=== PATIENT | female | born 1955 | race Hispanic/Latino ===

== ENCOUNTER → 2017-06-11 | Day surgery (SDC) | payer OTHER ==
[~2017-06-11] MED LIST: ALBUTEROL SULF8.5 GM NEB; AZITHROMYCIN250 MG; BALANCED SALT SOLN (OPTH) 15 ML BTL IO ONE; CEFUROXIME500 MG PO; FENTANYL CITRATE/PF 100MCG/2 ML INJ ONE; FLONASE16 GM NS; GELATIN SPONGE 12-7MM ONE; LIDOCAINE 2% /EPINEPHRINE 20 ML SDV INJ ONE; METFORMIN HCL500 MG PO; MIDAZOLAM HCL 2 MG/2 ML VIAL ONE; MUCINEX FAST-M177 ML PO; NEOMYCIN/POLYMYXIN/DEX (OPTH) 3.5 GM TUBE ONE; NEXIUM PO; NEXIUM40 MG PO; OMEPRAZOLE40 MG PO; PAROXETINE HCL10 MG PO; PAXIL40 MG PO; PROMETHAZINE-D118 ML; Z.0.LIPITOR40 MG PO; Z.0.OMEPRAZOLE40 MG PO
== END | disposition home or self-care (01) ==
LOC: OR 14:02
PROVIDERS: ATTEND Ophthalmology
DX: H02.834 Dermatochalasis of left upper eyelid (principal); H02.831 Dermatochalasis of right upper eyelid; E11.9 Type 2 diabetes mellitus without complications; L63.9 Alopecia areata, unspecified; F41.9 Anxiety disorder, unspecified
CPT/HCPCS: 15823; 36415; 82948; J2001; J2250

== ENCOUNTER 2017-09-01 10:20 | Emergency (ER) | payer OTHER ==
[~2017-09-01] VITALS: Ht 157.5 cm; Wt 68.9 kg
[~2017-09-01 10:20] MED LIST changes: -BALANCED SALT SOLN (OPTH) 15 ML BTL IO ONE; -FENTANYL CITRATE/PF 100MCG/2 ML INJ ONE; -GELATIN SPONGE 12-7MM ONE; -LIDOCAINE 2% /EPINEPHRINE 20 ML SDV INJ ONE; -MIDAZOLAM HCL 2 MG/2 ML VIAL ONE; -NEOMYCIN/POLYMYXIN/DEX (OPTH) 3.5 GM TUBE ONE
--- OUTSIDE RECORDS SUMMARY | 2017-09-01 10:23 | XMS REPORT ---
Author Author [facility] Address Unknown Phone Unavailable Care Team Providers Care Health Informatics Specialist Name Role Phone BUD YEPEZ Unavailable Unavailable SONIYA HEREDIA Unavailable Unavailable Problems This patient has no known problems. Allergies, Adverse Reactions, Alerts This patient has no known allergies or adverse reactions. Medications This patient has no known medications. Results Test Description Test Time Test Comments Text Results Atomic Results Result Comments HEPTOBILIARY W PHARM [place] [address] Patient Name: HANNY FITZPATRICK MR #: [id number] : 1955 Age/Sex: 61/F Req #: [id number] [facility] Physician: Ordered by: BUD YEPEZ MD Report #: [id number] Location: [place] Room/Bed: Procedure: [id number] NM/HEPTOBILIARY W PHARM Exam Date: 06/10/17 Exam Time: 929 REPORT STATUS: Signed Hepatobiliary Scan with Gallbladder Ejection Fraction Clinical information: 61 F with abdominal pain x3 weeks. Report: Following intravenous administration of 6.6 millicuries of Tc-99m mebrofenin, dynamic images of the abdomen in the anterior projection were obtained through 30 minutes. Sincalide (CCK analog) 1.5 micrograms was administered intravenously over 30 minutes with additional imaging for determination of gallbladder ejection fraction. Perfusion to the liver is normal. Extraction of tracer from the blood pool by the liver parenchyma is normal. Tracer is seen promptly within the biliary tract. The gallbladder begins to fill by 10 minutes post-injection of tracer and fills adequately. Tracer is seen in the small bowel by 20 minutes. The gallbladder ejection fraction with administration of sincalide is 82% (normal greater than 40%). Impression: 1. Filling of the gallbladder excludes the diagnosis of acute cystic duct obstruction/acute cholecystitis. 2. Normal gallbladder ejection fraction of 82% does not support the clinical diagnosis of chronic cholecystitis/gallbladder dyskinesia. Signed by: Dr. Elgin Forrest M.D. on 06/10/2017 1:05 PM Dictated By: ELGIN FORREST MD 1305 Transcribed By: MARLEN on 06/10/17 1305 COPY TO: BUD YEPEZ MD CT ABDOMEN/PELVIS W [place] [address] Patient Name: HANNY FITZPATRCIK MR #: [id number] : 1955 Age/Sex: 61/F Req #: [id number] Adm Physician: Ordered by: SONIYA HEREDIA MD Report #: [id number] Location: ER Room/Bed: Procedure: [id number] CT/CT ABDOMEN/PELVIS W Exam Date: 05/11/17 Exam Time: 2029 REPORT STATUS: Signed EXAM: CT Abdomen and Pelvis WITH contrast INDICATION: S EPIGASTRIC AND FLORIDALMA-UMBILICAL PAIN S [id number] S 2029 TECHNIQUE: Abdomen and pelvis were scanned utilizing a multidetector helical scanner from the lung base to the pubic symphysis after administration of IV contrast. Coronal and sagittal reformations were obtained. Routine protocol was performed. Scan was performed when during portal venous phase. IV CONTRAST: 100 mL of Isovue-370 ORAL CONTRAST: Gastrografin RADIATION DOSE: Total DLP: 358 mGy *cm Estimated effective dose: (DLP x 0.015 x size factor) mSv COMPLICATIONS: None FINDINGS: LINES and TUBES: None. LOWER THORAX: Mild bibasilar atelectasis. HEPATOBILIARY: Hepatic steatosis. No focal hepatic lesions. No biliary ductal dilation. GALLBLADDER: No radio-opaque stones or sludge. No wall thickening. SPLEEN : No splenomegaly. PANCREAS: No focal masses or ductal dilatation. ADRENALS: No adrenal nodules KIDNEYS/URETERS: Kidneys enhance symmetrically. No hydronephrosis. No cystic or solid mass lesions. No stones. GI TRACT: No abnormal distention, wall thickening, or evidence of bowel obstruction. Scattered diverticula. Appendix is normal. PELVIC ORGANS/BLADDER: Unremarkable. LYMPH NODES: No lymphadenopathy. VESSELS : Unremarkable. PERITONEUM / RETROPERITONEUM: No free air or fluid. BONES: Unremarkable. SOFT TISSUES: Bilateral high gluteal calcifications compatible with prior injection granulomas. IMPRESSION: No acute abnormality in the abdomen or pelvis. Signed by: Dr Ben Mendez MD on 05/11/2017 9:12 PM Dictated By: BEN MENDEZ MD 11 Transcribed By: MARLEN on 05/11/172111 COPY TO: SONIYA HEREDIA MD CT ABDOMEN/PELVIS [place] [address] Patient Name: HANNY FITZPATRICK MR #: [id number] : 1955 Age/Sex: 61/F Req #: [id number] Adm Physician: Ordered by: SONIYA HEREDIA MD Report #: [id number] Location: Room/Bed: Procedure: [id number] CT/CT ABDOMEN/PELVIS W Exam Date: 02/25/17 Exam Time: 1800 REPORT STATUS: Signed EXAM: CT Abdomen and Pelvis WITH contrast INDICATION: Left lower quadrant pain, diverticulitis. COMPARISON : 08/09/2014 TECHNIQUE: Abdomen and pelvis were scanned utilizing a multidetector helical scanner from the lung base to the pubic symphysis after administration of IV contrast. Coronal and sagittal reformations were obtained. Routine protocol was performed. Scan was performed when during portal venous phase. IV CONTRAST: 100 mL of Isovue-370 ORAL CONTRAST: Gastrografin RADIATION DOSE: Total DLP: 434.67 mGy*cm Estimated effective dose: (DLP x 0.015 x size factor) mSv COMPLICATIONS: None FINDINGS: LINES and TUBES: None. LOWER THORAX: Unremarkable HEPATOBILIARY: The liver is diffuse hypodense compared to the spleen, consistent with diffuse hepatic diffuse hepatic steatosis. No focal hepatic lesions. No biliary ductal dilation. GALLBLADDER: No radio-opaque stones or sludge. No wall thickening. SPLEEN: No splenomegaly. PANCREAS: No focal masses or ductal dilatation. ADRENALS: No adrenal nodules KIDNEYS/URETERS: Kidneys enhance symmetrically. No hydronephrosis. No cystic or solid mass lesions. No stones. GI TRACT: No abnormal distention, wall thickening, or evidence of bowel obstruction. There are diverticula within the colon without evidence of diverticulitis. Appendix is normal. PELVIC ORGANS/BLADDER: Unremarkable. LYMPH NODES: No lymphadenopathy. VESSELS: Unremarkable. PERITONEUM / RETROPERITONEUM: No free air or fluid. BONES: Unremarkable. SOFT TISSUES: Bilateral high gluteal calcifications compatible with prior injection granulomas. IMPRESSION: 1. No evidence of acute intra-abdominal or pelvic abnormality, specifically no evidence of diverticulitis. Signed by: Dr. Teto Glaser M.D. on 2016 8:15 PM Dictated By: TETO PETE MD 14 Transcribed By: MARLEN on 2014 COPY TO: SONIYA HEREDIA MD
[2017-09-01 11:16] LABS: BASOPHILS # (AUTO) 0.1 (0.0-0.1); BASOPHILS % 0.6 % (0.0-1.0); EOSINOPHILS % 0.2 % (0.0-6.0); HEMATOCRIT 39.4 % (34.2-44.1); LYMPHOCYTES # (AUTO) 3.7 (1.0-3.2); LYMPHOCYTES % 43.3 % (18.0-39.1); MEAN CORPUSCULAR HEMOGLOBIN 31.2 pg (28-32); MEAN CORPUSCULAR VOLUME 94.5 fL (81-99); MONOCYTES # (AUTO) 0.7 (0.2-0.8); MONOCYTES % 8.4 % (4.4-11.3); NEUTROPHILS % 47.4 % (38.7-80.0); PLATELET COUNT 396 x10e3/uL (140-360); RED BLOOD COUNT 4.17 x10e6/uL (3.6-5.1); RED CELL DISTRIBUTION WIDTH 13.3 % (11.7-14.4)
[2017-09-01 11:17] LABS: BILIRUBIN,URINE NEGATIVE (NEGATIVE); CLARITY,URINE CLEAR (CLEAR); COLOR,URINE YELLOW (YELLOW); KETONES,URINE NEGATIVE (NEGATIVE); LEUKOCYTE ESTERASE ,URINE NEGATIVE (NEGATIVE); NITRITE,URINE NEGATIVE (NEGATIVE); PROTEIN,URINE DIPSTICK NEGATIVE (NEGATIVE); URINE UROBILINOGEN 0.2 mg/dL (0.2 - 1)
[2017-09-01 11:31] LABS: EPITHELIAL CELLS,URINE FEW /LPF
[2017-09-01 11:38] LABS: ALANINE AMINOTRANSFERASE 26 IU/L (0-55); ALBUMIN 4.1 g/dL (3.5-5.0); ALBUMIN/GLOBULIN RATIO 1.2 (0.8-2.0); ALKALINE PHOSPHATASE 92 IU/L (40-150); ANION GAP 13.5 mmol/L (8-16); BLOOD UREA NITROGEN 11 mg/dL (7-26); BUN/CREATININE RATIO 17 (6-25); CALCIUM 9.1 mg/dL (8.4-10.2); CARBON DIOXIDE 26 mmol/L (22-29); CHLORIDE 106 mmol/L (98-107); CREATININE, SERUM 0.66 mg/dL (0.57-1.11); EST GLOMERULAR FILTRATION RATE > 60 ML/MIN (60-); GLUCOSE 79 mg/dL (74-118); MAGNESIUM 2.2 MG/DL (1.3-2.1); POTASSIUM 3.5 mmol/L (3.5-5.1); SODIUM 142 mmol/L (136-145)
--- NOTE | 2017-09-01 11:45 | Diagnostic Imaging Report ---
Exam: Head CT without contrast History: Left side body paresthesia. Comparison studies: None Technique: Axial images were obtained from the skull base to the vertex. Coronal and sagittal images reconstructed from the axial data. Intravenous contrast: None Findings: Scalp: No abnormalities. Bones: No fractures, blastic or lytic lesions. Brain sulci: Appropriate for age. Ventricles: Normal in size and configuration. No hydrocephalus. Extra-axial spaces: No masses, no fluid collection. Parenchyma: Subtle hypodensities in the bilateral periventricular white matter and posterior limb of the internal capsules are likely small vessel ischemic changes. No mass, hemorrhage, acute or chronic large vascular territorial infarct. Sellar/suprasellar region: No abnormalities. Craniocervical junction: Patent foramen magnum. No Chiari one malformation. Incidental findings: None. IMPRESSION: 1. No acute intracranial abnormality demonstrated. 2. Mild chronic small vessel ischemic changes. Signed by: DR Kobe Daniels M.D. on 09/01/2017 2:32 PM
== END 2017-09-01 12:18 | disposition home or self-care (01) ==
LOC: ER 10:20
DX: R20.2 Paresthesia of skin (principal); E11.9 Type 2 diabetes mellitus without complications; K21.9 Gastro-esophageal reflux disease without esophagitis
CPT/HCPCS: 36415; 70450; 80053; 81001; 83735; 85025; 93005; 99284

== ENCOUNTER 2017-10-21 10:41 | Emergency (ER) | payer BC, OTHER ==
[~2017-10-21] VITALS: Ht 157.5 cm; Wt 68.9 kg
--- OUTSIDE RECORDS SUMMARY | 2017-10-21 10:44 | XMS REPORT | Continuity of Care Document ---
Author Author [facility] Organization [facility] Address [address] [place] [address] Phone Unavailable Care Team Providers Care Co Director Name Role Phone RONALDO CARTAGENA MD PCP Insurance Providers Guarantor Hanny Fitzpatrick Address [address] [place] [address] Email [email or web address] [email or web address] [facility] Policy Number [id number] Subscriber's Name FitzpatrickAdria Relationship 01 Group Number [id number] Group Name [id number] Effective Date 16 Advance Directives Directive Response Recorded Date/Time Does the patient have an advance directive? No 05/11/13 5:16pm If yes, is advance directive on file with [facility]? No 05/11/13 5:16pm If not on file with [facility] will patient provide a copy? Yes 06/06/17 8:26am Do you have a Directive to Physician? No 09/01/17 12:15pm Do you have a Medical Power of Military Logistics Specialist? No 09/01/17 12:15pm Do you have an out of hospital Do Not Resuscitate Order? No 09/01/17 12:15pm Do you have any special needs we should be aware of? No 09/01/17 12:15pm Do you have a support person here with you today? Yes 09/01/17 12:15pm Did patient receive Notice of Privacy Practices? Yes 09/01/17 12:15pm Did patient receive patient rights and responsibilities? Yes 09/01/17 12:15pm Problems Medical Problem Onset Date Status Bronchitis Unknown Acute Medications Current Home Medications Medication Dose Units Route Directions Days Qty Instructions Start Date Metformin Hcl 500 Mg Tablet 500 Mg Oral Twice A Day 60 Tab Omeprazole 40 Mg Capsule.dr 40 Mg Oral Daily Past Home Medications Medication Directions Ordered Status Albuterol Sulfate (Albuterol Sulfate Hfa) 8.5 Gm Hfa.aer.ad, 2 Inh Nebullizer Every 6 Hours as needed Discontinued Atorvastatin Calcium (Lipitor) 40 Mg Tablet, 40 Mg Oral Daily Discontinued Azithromycin (Z-Leland) 250 Mg Tablet, Discontinued Cefuroxime Axetil (Cefuroxime) 500 Mg Tablet, 500 Mg Oral Twice A Day Discontinued D-Methorphan Hb/Prometh Hcl (Promethazine-Dm Syrup) 118 Ml Syrup, Discontinued Esomeprazole Magnesium (Nexium) 40 Mg Capsule.dr, 40 Mg Oral Daily Discontinued Fluticasone Propionate (Flonase) 16 Gm [place].susp, 2 Sprays Nasal Twice A Day Discontinued Guaifenesin/Dextromethorphan (Mucinex Fast-Max Dm Max Liquid) 177 Ml Liquid, 1 Tab Oral Twice A Day Discontinued Nexium , Oral Daily Discontinued Omeprazole 40 Mg Capsule.dr, 40 Mg Oral Daily Discontinued Paroxetine Hcl (Paxil) 40 Mg Tablet, 40 Mg Oral Daily Discontinued Paroxetine Hcl 10 Mg Tablet, 10 Mg Oral Daily Discontinued Social History Social History Problem Response Recorded Date/Time Onset Date Status Hx Psychiatric Problems No 05/11/2013 5:16pm Not Applicable Not Applicable Smoking Status Start Date Stop Date Never Smoker Hospital Discharge Instructions No hospital discharge instruction information available. Plan of Care Discharge Date 09/01/17 12:18pm Disposition HOME, SELF-CARE Condition at Discharge Stable Instructions/Education Provided Numbness and Tingling Forms Provided Work/School Excuse Prescriptions See Medication Section Referrals RONALDO CARTAGENA MD Address: [address] [place] [phone] SATURDAYMANJU MD Order Date: Call for an appointment Address: [address] [place] [address] Additional Instructions/Education DC Instructions: Follow up with the your PCP or referral physician listed, call next business day to schedule your follow-up appointment. Return to the ER for any shortness of breath, chest pain, abdominal pain,increased pain to injured extremity or any new concerns. Functional Status No functional status information available. Allergies, Adverse Reactions, Alerts Allergen Type Severity Reaction Status Last Updated Aspirin Allergy Unknown Swelling. itching Active 02/25/17 Immunizations No immunization information available. Vital Signs Acute Vital Signs Vital Response Date/Time Blood Pressure 151/91 mm Hg 05/11/2017 9:42pm Height 5 ft 2 in 09/01/2017 10:33am Weight 152 lb 09/01/2017 10:33am Body Mass Index 27.8 kg/m^2 09/01/2017 10:33am Results Laboratory Results Test Name Result Units Flags Reference Collection Date/Time Result Date/ Time Comments Urine Transitional Epithelial Cells FEW H NONE 02/25/2017 3:08pm 02/25 3:51pm Creatine Kinase 59 IU/L 29-168 05/11/2017 5:55pm 05/11/2017 6:39pm Creatine Kinase MB 1.20 ng/mL 0.00-5.00 05/11/2017 5:55pm 05/11/2017 6: 46pm Troponin I 0.012 ng/mL 0-0.300 05/11/2017 5:55pm 05/11/2017 6:46pm Lipase 23 U/L 8-78 05/11/2017 5:55pm 05/11/2017 6:39pm Bedside Glucose 88 mg/dL 70-120 06/11/2017 4:48pm 06/11/2017 5:09pm Meter ID: [id number] White Blood Count 8.54 x10e3/uL 4.8-10.8 09/01/2017 10:55am 09/01/2017 11:16am Red Blood Count 4.17 x10e6/uL 3.6-5.1 09/01/2017 10:55am 09/01/2017 11: 16am Hemoglobin 13.0 g/dL 12.0-16.0 09/01/2017 10:55am 09/01/2017 11:16am Hematocrit 39.4 % 34.2-44.1 09/01/2017 10:55am 09/01/2017 11:16am Mean Corpuscular Volume 94.5 fL 81-99 09/01/2017 10:55am 09/01/2017 11: 16am Mean Corpuscular Hemoglobin 31.2 pg 28-32 09/01/2017 10:55am 2017 11:16am Mean Corpuscular Hemoglobin Concent 33.0 g/dL 31-35 09/01/2017 10:55am 09/01/2017 11:16am Red Cell Distribution Width 13.3 % 11.7-14.4 09/01/2017 10:55am 2017 11:16am Platelet Count 396 x10e3/uL H 140-360 09/01/2017 10:55am 09/01/2017 11: 16am Neutrophils (%) (Auto) 47.4 % 38.7-80.0 09/01/2017 10:55am 09/01/2017 11:16am Lymphocytes (%) (Auto) 43.3 % H 18.0-39.1 09/01/2017 10:55am 09/01/2017 11:16am Monocytes (%) (Auto) 8.4 % 4.4-11.3 09/01/2017 10:55am 09/01/2017 11: 16am Eosinophils (%) (Auto) 0.2 % 0.0-6.0 09/01/2017 10:55am 09/01/2017 11: 16am Basophils (%) (Auto) 0.6 % 0.0-1.0 09/01/2017 10:55am 09/01/2017 11: 16am IM GRANULOCYTES % 0.1 % 0.0-1.0 09/01/2017 10:55am 09/01/2017 11:16am Neutrophils # (Auto) 4.0 2.1-6.9 09/01/2017 10:55am 09/01/2017 11: 16am Lymphocytes # (Auto) 3.7 H 1.0-3.2 09/01/2017 10:55am 09/01/2017 11: 16am Monocytes # (Auto) 0.7 0.2-0.8 09/01/2017 10:55am 09/01/2017 11:16am Eosinophils # (Auto) 0.0 0.0-0.4 09/01/2017 10:55am 09/01/2017 11: 16am Basophils # (Auto) 0.1 0.0-0.1 09/01/2017 10:55am 09/01/2017 11:16am Absolute Immature Granulocyte (auto 0.01 x10e3/uL 0-0.1 09/01/2017 10: 55am 09/01/2017 11:16am Urine Color YELLOW YELLOW 09/01/2017 10:55am 09/01/2017 11:17am Urine Clarity CLEAR CLEAR 09/01/2017 10:55am 09/01/2017 11:17am Urine Specific [place] 1.010 1.010-1.025 09/01/2017 10:55am 2017 11:17am Urine pH 8 H 5 - 7 09/01/2017 10:55am 09/01/2017 11:17am Urine Leukocyte Esterase NEGATIVE NEGATIVE 09/01/2017 10:55am 2017 11:17am Urine Nitrite NEGATIVE NEGATIVE 09/01/2017 10:55am 09/01/2017 11: 17am Urine Protein NEGATIVE NEGATIVE 09/01/2017 10:55am 09/01/2017 11: 17am Urine Glucose (UA) NEGATIVE NEGATIVE 09/01/2017 10:55am 09/01/2017 11 :17am Urine Ketones NEGATIVE NEGATIVE 09/01/2017 10:55am 09/01/2017 11: 17am Urine Urobilinogen 0.2 mg/dL 0.2 - 1 09/01/2017 10:55am 09/01/2017 11: 17am Urine Bilirubin NEGATIVE NEGATIVE 09/01/2017 10:55am 09/01/2017 11: 17am Urine Blood NEGATIVE NEGATIVE 09/01/2017 10:55am 09/01/2017 11:17am Urine WBC NONE /HPF 0-5 09/01/2017 10:55am 09/01/2017 11:31am Urine RBC NONE /HPF 0-5 09/01/2017 10:55am 09/01/2017 11:31am Urine Bacteria NONE /HPF NONE 09/01/2017 10:55am 09/01/2017 11:31am Urine Epithelial Cells FEW /LPF NONE 09/01/2017 10:55am 09/01/2017 11: 31am Sodium Level 142 mmol/L 136-145 09/01/2017 10:55am 09/01/2017 11:38am Potassium Level 3.5 mmol/L 3.5-5.1 09/01/2017 10:55am 09/01/2017 11: 38am Chloride Level 106 mmol/L 98-107 09/01/2017 10:55am 09/01/2017 11:38am Carbon Dioxide Level 26 mmol/L 22-29 09/01/2017 10:55am 09/01/2017 11: 38am Anion Gap 13.5 mmol/L 8-16 09/01/2017 10:55am 09/01/2017 11:38am Blood Urea Nitrogen 11 mg/dL 7-26 09/01/2017 10:55am 09/01/2017 11: 38am Creatinine 0.66 mg/dL 0.57-1.11 09/01/2017 10:55am 09/01/2017 11:38am BUN/Creatinine Ratio 17 6-25 09/01/2017 10:55am 09/01/2017 11:38am Estimat Glomerular Filtration Rate > 60 ML/MIN 60- 09/01/2017 10:55am 09/01/2017 11:38am Ranges were taken from the National Kidney Disease Education Program and the National Kidney Foundation literature. Reference ranges: 60 or greater: Normal 16-59 (for 3 consecutive months): Chronic kidney disease 15 or less: Kidney failure Glucose Level 79 mg/dL 74-118 09/01/2017 10:55am 09/01/2017 11:38am Calcium Level 9.1 mg/dL 8.4-10.2 09/01/2017 10:55am 09/01/2017 11:38am Magnesium Level 2.2 MG/DL H 1.3-2.1 09/01/2017 10:55am 09/01/2017 11: 38am Total Bilirubin < 0.3 mg/dL 0.2-1.2 09/01/2017 10:55am 09/01/2017 11: 38am Aspartate Amino Transf (AST/SGOT) 15 IU/L 5-34 09/01/2017 10:55am 09/01 11:38am Alanine Aminotransferase (ALT/SGPT) 26 IU/L 0-55 09/01/2017 10:55am 04/2018 11:38am Total Protein 7.6 g/dL 6.5-8.1 09/01/2017 10:55am 09/01/2017 11:38am Albumin 4.1 g/dL 3.5-5.0 09/01/2017 10:55am 09/01/2017 11:38am Globulin 3.5 g/dL 2.3-3.5 09/01/2017 10:55am 09/01/2017 11:38am Albumin/Globulin Ratio 1.2 0.8-2.0 09/01/2017 10:55am 09/01/2017 11: 38am Alkaline Phosphatase 92 IU/L 40-150 09/01/2017 10:55am 09/01/2017 11: 38am Procedures Procedure Status Date Provider(s) REVISION OF UPPER EYELID Completed 06/11/17 CHRIST ARELLANO MD Computed tomography of abdomen and pelvis with contrast Active 02/25/17 SONIYA HEREDIA MD Computed tomography of abdomen and pelvis with contrast Active 05/11/17 SONIYA HEREDIA MD Computed tomography of brain without radiopaque contrast Completed 09/01/17 YOLANDA RICE LANDSCAPE GARDENER Encounters Encounter Location Arrival/Admit Date Discharge/Depart Date Attending Provider Registered Emergency Room [facility] 09/01/17 10:20am SONIYA HEREDIA MD Registered Surgical Day Care [facility] 06/11/17 2:02pm CHRIST ARELLANO MD Registered Clinic [facility] 06/10/17 8:34am BUD YEPEZ MD Departed Emergency Room [facility] 05/11/17 4:53pm 9:49pm TY VILLASENOR MD Departed Emergency Room [facility] 02/25/17 2:40pm 7:47pm SONIYA HEREDIA MD
[2017-10-21 11:11] VITALS: BP 152/94
== END 2017-10-21 11:12 | disposition home or self-care (01) ==
LOC: ER 10:41
DX: H11.32 Conjunctival hemorrhage, left eye (principal)
CPT/HCPCS: 99283

== ENCOUNTER → 2018-07-18 | Day surgery (SDC) | payer BC ==
[~2018-07-18] MED LIST changes: +BYSTOLIC10 MG PO; +FENTANYL CITRATE/PF 100MCG/2 ML INJ ONE; +HYOSCYAMINE SULFATE 0.5 MG/ML INJ ONE; +LIDOCAINE HCL 2% LOCAL INJ 5 ML SDV VIAL INJ ONE; +MIDAZOLAM HCL 2 MG/2 ML VIAL ONE; +MONTELUKAST SOD10 MG PO; +PAROXETINE HCL20 MG PO; +PHENYLEPHRINE HCL 1% 10 MG/ML VIAL ONE; +PROPOFOL IV EMULSION 10 MG/ML 50 ML VIAL ONE; +TRULICITY SC
--- OUTSIDE RECORDS SUMMARY | 2018-07-18 09:22 | XMS REPORT | Summary of Care ---
Author Author Organization Address Unknown Phone Unavailable Encounter SEGUNDO Gamino(EUN) [id number] Date(s): 11/28/15 - 11/28/[address] [place] [address]- Discharge Disposition: Home Attending Physician: Sunita Hairston MD Vital Signs No data available for this section Problem List No data available for this section Allergies, Adverse Reactions, Alerts No data available for this section Medications No data available for this section Results ELECTROLYTES Most recent to 1 oldest [Reference Range]: Sodium Lvl [135-145 140 mEq/L mEq/L] (11/28/15 1:17 PM) Potassium Lvl 3.5 mEq/L [3.5-5.1 mEq/L] (11/28/15 1:17 PM) Chloride Lvl [95-109 106 mEq/L mEq/L] (11/28/15 1:17 PM) CO2 [24-32 mEq/L] 27 mEq/L (11/28/15 1:17 PM) AGAP [10.0-20.0 10.5 mEq/L mEq/L] (11/28/15 1:17 PM) CHEM PANEL Most recent to 1 oldest [Reference Range]: Creatinine Lvl 0.44 mg/dL [0.50-1.40 mg/dL] *LOW* (11/28/15 1:17 PM) eGFR 110 mL/min/1.73m2 1 *NA* (11/28/15 1:17 PM) BUN [7-22 mg/dL] 6 mg/dL *LOW* (11/28/15 1:17 PM) B/C Ratio [6-25] 14 (11/28/15 1:17 PM) Glucose Lvl [70-99 85 mg/dL mg/dL] (11/28/15 1:17 PM) Total Protein 7.1 g/dL [6.4-8.4 g/dL] (11/28/15 1:17 PM) Albumin Lvl [3.5-5.0 3.5 g/dL g/dL] (11/28/15 1:17 PM) Globulin [2.0-4.0 3.6 g/dL g/dL] (11/28/15 1:17 PM) A/G Ratio [0.7-1.6] 1.0 (11/28/15 1:17 PM) Calcium Lvl 8.3 mg/dL [8.5-10.5 mg/dL] *LOW* (11/28/15 1:17 PM) ALT [0-65 unit/L] 36 unit/L (11/28/15 1:17 PM) AST [0-37 unit/L] 16 unit/L (11/28/15 1:17 PM) Alk Phos [39-136 104 unit/L unit/L] (11/28/15:17 PM) Bili Total [0.2-1.3 0.1 mg/dL mg/dL] *LOW* (11/28/15 1:17 PM) Vitamin D, 25-OH, 37 ng/mL Total [30-100 ng/mL] (11/28/15 1:17 PM) 1Result Comment: The eGFR is calculated using the CKD-EPI formula. In most young, healthy individuals the eGFR will be >90 mL/min/1.73m2. The eGFR declines with age. An eGFR of 60-89 may be normal in some populations, particularly the elderly, for whom the CKD-EPI formula has not been extensively validated. Use of the eGFR is not recommended in the following populations: Individuals with unstable creatinine concentrations, including patients and those with serious co-morbid conditions. Patients with extremes in muscle mass or diet. The data above are obtained from the National Kidney Disease Education Program ( NKDEP) which additionally recommends that when the eGFR is used in patients with extremes of body mass index for purposes of drug dosing, the eGFR should be mul tiplied by the estimated BMI. SPECIAL CHEMISTRY Most recent to 1 oldest [Reference Range]: Hgb A1C [<=5.6 %] 6.5 % *HI* (11/28/15 1:17 PM) ENDOCRINOLOGY Most recent to 1 oldest [Reference Range]: Insulin Lvl 4.8 uIU/mL *NA* (11/28/15: PM) HEMATOLOGY Most recent to 1 oldest [Reference Range]: WBC [3.7-10.4 K/CMM] 6.7 K/CMM (11/28/15 1:17 PM) RBC [4.20-5.40 4.24 M/CMM M/CMM] (11/28/15 1:17 PM) Hgb [12.0-16.0 g/dL] 13.5 g/dL (11/28/15 1:17 PM) Hct [36.0-48.0 %] 41.2 % (11/28/15 1: PM) MCV [80.0-98.0 fL] 97.1 fL (11/28/15 1:17 PM) MCH [27.0-31.0 pg] 31.7 pg *HI* (11/28/15 1:17 PM) MCHC [32.0-36.0 32.7 g/dL g/dL] (11/28/15 1:17 PM) RDW [11.5-14.5 %] 13.1 % (11/28/15 1:17 PM) Platelet [133-450 258 K/CMM K/CMM] (11/28/15 1:17 PM) MPV [7.4-10.4 fL] 9.0 fL (11/28/15 1:17 PM) Segs [45.0-75.0 %] 43.3 % *LOW* (11/28/15 1:17 PM) Lymphocytes 47.1 % [20.0-40.0 %] *HI* (11/28/15 1:17 PM) Monocytes [2.0-12.0 6.9 % %] (11/28/15 1:17 PM) Eosinophils [0.0-4.0 2.1 % %] (11/28/15 1:17 PM) Basophils [0.0-1.0 0.6 % %] (11/28/15 1:17 PM) Segs-Bands # 2.9 K/CMM [1.5-8.1 K/CMM] (11/28/15 1:17 PM) Lymphocytes # 3.1 K/CMM [1.0-5.5 K/CMM] (11/28/15 1:17 PM) Monocytes # [0.0-0.8 0.5 K/CMM K/CMM] (11/28/15 1:17 PM) Eosinophils # 0.1 K/CMM [0.0-0.5 K/CMM] (11/28/15 1:17 PM) Immunizations No data available for this section Procedures No data available for this section Social History No data available for this section Assessment and Plan No data available for this section
--- OUTSIDE RECORDS SUMMARY | 2018-07-18 09:22 | XMS REPORT | Summary of Care ---
Author Author [facility] Organization [facility] Address Unknown Phone Unavailable Encounter SEGUNDO Gamino(EUN) [id number] Date(s): 07/16/16 - 07/16/16 [facility] [address] [place] [address]- [phone] Discharge Disposition: Home or Self Care Attending Physician: Teddy Barboza MD Referring Physician: Teddy Barboza MD Vital Signs No data available for this section Problem List No data available for this section Allergies, Adverse Reactions, Alerts No data available for this section Medications No data available for this section Results CHEM PANEL Most recent to 1 oldest [Reference Range]: eGFR 105 mL/min/1.73m2 1 *NA* (07/16/16 3:29 PM) POC Creatinine 0.5 mg/dL [0.5-1.4 mg/dL] (07/16/16 3:29 PM) 1Result Comment: The eGFR is calculated [...] be mul tiplied by the estimated BMI. Immunizations No data available for this section Procedures No data available for this section Social History No data available for this section Assessment and Plan No data available for this section
--- OUTSIDE RECORDS SUMMARY | 2018-07-18 09:22 | XMS REPORT | Summary of Care ---
Author Organization Unknown Address Unknown Phone Unavailable Encounter Dates Location Diagnoses Discharge Providers Disposition 09/23/2013 [facility] Outpatient Imaging - Home Mkcenzie Rodriguez 09/23/2013 [address] [place], [place] [id number] [place] [address] Reason for Visit V76.12 - SCREEN MAMMOGRA Problem List No data available for this section Allergies, Adverse Reactions, Alerts No data available for this section Medications No data available for this section Medications Administered During Your Visit No data available for this section Immunizations No data available for this section
--- OUTSIDE RECORDS SUMMARY | 2018-07-18 09:22 | XMS REPORT | Summary of Care ---
Author Author [facility] Organization [facility] Address Unknown Phone Unavailable Encounter SEGUNDO Gamino(EUN) [id number] Date(s): 05/06/15 - 05/06/15 [facility] [address] [place] [address]- [phone] Discharge Disposition: Home Attending Physician: Sunita Hairston MD Vital Signs No data available for this section Problem List No data available for this section Allergies, Adverse Reactions, Alerts No data available for this section Medications No data available for this section Results ELECTROLYTES Most recent to 1 oldest [Reference Range]: Sodium Lvl [135-145 137 mEq/L mEq/L] (05/06/15 9:21 AM) Potassium Lvl 3.9 mEq/L [3.5-5.1 mEq/L] (05/06/15 9:21 AM) Chloride Lvl [95-109 103 mEq/L mEq/L] (05/06/15 9:21 AM) CO2 [24-32 mEq/L] 30 mEq/L (05/06/15 9:21 AM) AGAP [10.0-20.0 7.9 mEq/L mEq/L] *LOW* (05/06/15 9:21 AM) CHEM PANEL Most recent to 1 oldest [Reference Range]: Creatinine Lvl 0.57 mg/dL [0.50-1.40 mg/dL] (05/06/15 9:21 AM) eGFR 102 mL/min/1.73m2 1 *NA* (05/06/15 9:21 AM) BUN [7-22 mg/dL] 11 mg/dL (05/06/15 9:21 AM) B/C Ratio [6-25] 19 (05/06/15 9:21 AM) Glucose Lvl [70-99 95 mg/dL mg/dL] (05/06/15 9:21 AM) Total Protein 7.3 g/dL [6.4-8.4 g/dL] (05/06/15 9:21 AM) Albumin Lvl [3.5-5.0 3.7 g/dL g/dL] (05/06/15 9:21 AM) Globulin [2.0-4.0 3.6 g/dL g/dL] (05/06/15 9:21 AM) A/G Ratio [0.7-1.6] 1.0 (05/06/15 9:21 AM) Calcium Lvl 8.8 mg/dL [8.5-10.5 mg/dL] (05/06/15 9:21 AM) ALT [0-65 unit/L] 26 unit/L (05/06/15 9:21 AM) AST [0-37 unit/L] 10 unit/L (05/06/15 9:21 AM) Alk Phos [39-136 93 unit/L unit/L] (05/06/15 9:21 AM) Bili Total [0.2-1.3 0.4 mg/dL mg/dL] (05/06/15 9:21 AM) 1Result Comment: The eGFR is calculated using [...] oldest [Reference Range]: Hgb A1C [<=5.6 %] 5.6 % (05/06/15 9:31 AM) Immunizations No data available for this section Procedures No data available for this section Social History No data available for this section Assessment and Plan No data available for this section
--- OUTSIDE RECORDS SUMMARY | 2018-07-18 09:22 | XMS REPORT | Continuity of Care Document ---
Author Author [facility] Interface Address Unknown Phone Unavailable Problems Problem Status Onset Date Classification Date Reported Comments Source DX: H92.02=OTALGIA, LEFT EAR/R07.0=PAIN Active 2016 [facility] E11.9 Active 11/28/2015 [facility] M06.00 Active 09/26/2015 [facility] Z12.31 - ENCNTR SCREEN MAMMOGRAM FOR MA Active 06/15/2015 [facility] [place] BLE DX:DVT Active 10/25/2014 [facility] V76.12 - SCREEN MAMMOGRA Active 07/31/2012 LORIEMeera Ferguson Final: Encounter for screening mammogram for malignant neoplasm of breast 11/28/2015 [facility] 466.0 Active [facility] J06 Active [facility] E11.9/K76.0 Active [facility] Medications Medication Details Route Status Patient Instructions Ordering Provider Order Date Source Allergies, Adverse Reactions, Alerts Substance Category Reaction Severity Reaction type Status Date Reported Comments Source Immunizations Immunization Date Given Site Status Last Updated Comments Source Results Order Name Results Value Reference Range Date Interpretation Comments Source CHEM PANEL eGFR 105 mL/min/1.73m2 07/16/2016 Result Comment: The eGFR is calculated using the [...] from the National Kidney Disease Education Program (NKDEP) which additionally recommends that when the eGFR is used in patients with extremes of body mass index for purposes of drug dosing, the eGFR should be multiplied by the estimated BMI. [facility] CHEM PANEL POC Creatinine 0.5 mg/dL 0.5 - 1.4 07/16/2016 [facility] Neck soft tissue w contrast CT Neck soft tissue w contrast CT Neck soft tissue w contrast CT CLINICAL INDICATION: Throat pain; otalgia of left ear; COMPARISON: None CT DLP: 232 mGy-cm TECHNIQUE: Contiguous transaxial images of the neck were performed following administration of IV contrast. Coronal and sagittal reformatted images were also performed. FINDINGS: SUPRAHYOID NECK: The oropharynx, parapharyngeal space, and retropharyngeal space are normal. The nasopharyngeal adenoids and tonsillar pillar regions demonstrate normal morphology. The external acoustic meatus is patent bilaterally. No fluid is noted in the middle ear on either side. Mastoid air cells are clear bilaterally. INFRAHYOID NECK: The epiglottis, valleculae and piriform sinuses are unremarkable in appearance. The larynx, and hypopharynx demonstrate normal morphology. THYROID AND SALIVARY GLANDS: The thyroid lobes are symmetric without focal lesions. The submandibular and parotid glands are unremarkable. LYMPH NODES: There are a few scattered subcentimeter lymph nodes noted along the deep cervical and posterior cervical chains bilaterally. VASCULAR STRUCTURES: The jugular veins and carotid vessels are unremarkable. LUNGS AND AIRWAY: The airway is patent throughout the neck. Visualized portion of the lung apices are clear. PARANASAL SINUSES: Mild mucosal thickening, base of left maxillary sinus. Visualized paranasal sinuses are otherwise clear. IMPRESSION: No significant abnormality is noted on the contrast CT of neck. SL: [id number] 07/16/2016 - - Read by: Jose Roberto Galaviz MD Dictated Date/time: 07/17/16 13:11 Electronically Signed by: Jose Roberto Galaviz MD 07/17/16 13:24 FINAL REPORT [facility] CHEM PANEL Vitamin D, 25-OH, Total 37 ng/mL 30 - 100 11/28/2015 [facility] ELECTROLYTES AGAP 10.5 meq/L 10.0 - 20.0 11/28/2015 [facility] ELECTROLYTES B/C Ratio 14 6 - 25 11/28/2015 [facility] ELECTROLYTES Globulin 3.6 g/dL 2.0 - 4.0 11/28/2015 [facility] ELECTROLYTES A/G Ratio 1.0 0.7 - 1.6 11/28/2015 [facility] ELECTROLYTES eGFR 110 mL/min/1.73m2 11/28/2015 Result Comment: The eGFR is calculated using the [...] from the National Kidney Disease Education Program (NKDEP) which additionally recommends that when the eGFR is used in patients with extremes of body mass index for purposes of drug dosing, the eGFR should be multiplied by the estimated BMI. [facility] ELECTROLYTES Bili Total 0.1 mg/dL 0.2 - 1.3 11/28/2015 [facility] ELECTROLYTES Alk Phos 104 unit/L 39 - 136 11/28/2015 [facility] ELECTROLYTES Sodium Lvl 140 meq/L 135 - 145 11/28/2015 [facility] ELECTROLYTES Creatinine Lvl 0.44 mg/dL 0.50 - 1.40 11/28/2015 [facility] ELECTROLYTES Glucose Lvl 85 mg/dL 70 - 99 11/28/2015 [facility] ELECTROLYTES BUN 6 mg/dL 7 - 22 11/28/2015 [facility] ELECTROLYTES CO2 27 meq/L 24 - 32 11/28/2015 [facility] ELECTROLYTES Chloride Lvl 106 meq/L 95 - 109 11/28/2015 [facility] ELECTROLYTES Total Protein 7.1 g/dL 6.4 - 8.4 11/28/2015 [facility] ELECTROLYTES Calcium Lvl 8.3 mg/dL 8.5 - 10.5 11/28/2015 [facility] ELECTROLYTES Potassium Lvl 3.5 meq/L 3.5 - 5.1 11/28/2015 [facility] ELECTROLYTES ALT 36 unit/L 0 - 65 11/28/2015 [facility] ELECTROLYTES Albumin Lvl 3.5 g/dL 3.5 - 5.0 11/28/2015 [facility] ELECTROLYTES AST 16 unit/L 0 - 37 11/28/2015 [facility] ENDOCRINOLOGY Insulin Lvl 4.8 uIU/mL 11/28/2015 [facility] HEMATOLOGY Lymphocytes # 3.1 K/CMM 1.0 - 5.5 11/28/2015 [facility] HEMATOLOGY Lymphocytes 47.1 % 20.0 - 40.0 11/28/2015 [facility] HEMATOLOGY Monocytes 6.9 % 2.0 - 12.0 11/28/2015 [facility] Eosinophils # 0.1 K/CMM 0.0 - 0.5 11/28/2015 [facility] Monocytes # 0.5 K/CMM 0.0 - 0.8 11/28/2015 [facility] Basophils 0.6 % 0.0 - 1.0 11/28/2015 [facility] Eosinophils 2.1 % 0.0 - 4.0 11/28/2015 [facility] Segs-Bands # 2.9 K/CMM 1.5 - 8.1 11/28/2015 [facility] Segs 43.3 % 45.0 - 75.0 11/28/2015 [facility] MPV 9.0 fL 7.4 - 10.4 11/28/2015 [facility] MCHC 32.7 g/dL 32.0 - 36.0 11/28/2015 [facility] Hct 41.2 % 36.0 - 48.0 11/28/2015 [facility] MCV 97.1 fL 80.0 - 98.0 11/28/2015 [facility] RDW 13.1 % 11.5 - 14.5 11/28/2015 [facility] Platelet 258 K/CMM 133 - 450 11/28/2015 [facility] MCH 31.7 pg 27.0 - 31.0 11/28/2015 [facility] RBC 4.24 M/CMM 4.20 - 5.40 11/28/2015 [facility] Hgb 13.5 g/dL 12.0 - 16.0 11/28/2015 [facility] WBC 6.7 K/CMM 3.7 - 10.4 11/28/2015 [facility] SPECIAL CHEMISTRY Hgb A1C 6.5 % <=5.6 % 11/28/2015 [facility] Digital Mammo Screening Carlos Manuel MA Digital Mammo Screening Carlos Manuel MA - DIGITAL MAMMO SCREENING CARLOS MANUEL MA BILATERAL DIGITAL SCREENING MAMMOGRAM WITH CAD: 11/25/2015 CLINICAL: Z12.31 Encounter For Screening Mammogram For Malignant Neoplasm Of Breast. Current study was evaluated with a Computer Aided Detection (CAD) system. Comparison is made to exams dated: 09/23/2013 mammogram, 09/18/2012 mammogram and 08/23/2011 mammogram - [facility]. The tissue of both breasts is almost entirely fat. No significant masses, calcifications, or other findings are seen in either breast. There has been no significant interval change. IMPRESSION: NEGATIVE There is no mammographic evidence of malignancy. A 1 year screening mammogram is recommended. Shanti Chowdary M.D. th/penrad:11/25/2015 10:46:56 Limnology Teacher: Jennifer ALVARADO)(Laura), [facility] This exam was dictated and interpreted by [id number] at [facility] Location. letter sent: Normal exam Mammogram BI-RADS: 1 Negative 11/25/2015 - - Read by: Shanti Chowdary MD Dictated Date/time: 11/25/15 10:46 Electronically Signed by: Shanti Chowdary MD 11/25/15 10:46 FINAL REPORT [facility] HEMATOLOGY Sed Rate 23 mm/h 0 - 20 09/26/2015 [facility] IMMUNOLOGY RF Qnt null 0 - 20 09/26/2015 [facility] IMMUNOLOGY P-ANCA Negative (09/26/15 3:31 PM) Negative 09/26/2015 [facility] IMMUNOLOGY C-ANCA Negative (09/26/15 3:31 PM) Negative 09/26/2015 [facility] IMMUNOLOGY SCL- 70 Ab null <=0.9 AI 09/26/2015 [facility] IMMUNOLOGY UGO Negative (09/26/15 3:31 PM) Negative 09/26/2015 [facility] SPECIAL CHEMISTRY Hgb A1C 5.6 % <=5.6 % 05/06/2015 [facility] CHEM PANEL Alk Phos 93 unit/L 39 - 136 05/06/2015 [facility] CHEM PANEL AST 10 unit/L 0 - 37 05/06/2015 [facility] CHEM PANEL A/G Ratio 1.0 0.7 - 1.6 05/06/2015 [facility] CHEM PANEL ALT 26 unit/L 0 - 65 05/06/2015 [facility] CHEM PANEL B/C Ratio 19 6 - 25 05/06/2015 [facility] CHEM PANEL Globulin 3.6 g/dL 2.0 - 4.0 05/06/2015 [facility] CHEM PANEL Total Protein 7.3 g/dL 6.4 - 8.4 05/06/2015 [facility] CHEM PANEL eGFR 102 mL/min/1.73m2 05/06/2015 Result Comment: The eGFR is calculated using the [...] from the National Kidney Disease Education Program (NKDEP) which additionally recommends that when the eGFR is used in patients with extremes of body mass index for purposes of drug dosing, the eGFR should be multiplied by the estimated BMI. [facility] CHEM PANEL Bili Total 0.4 mg/dL 0.2 - 1.3 05/06/2015 [facility] CHEM PANEL Creatinine Lvl 0.57 mg/dL 0.50 - 1.40 05/06/2015 [facility] CHEM PANEL BUN 11 mg/dL 7 - 22 05/06/2015 [facility] CHEM PANEL AGAP 7.9 meq/L 10.0 - 20.0 05/06/2015 [facility] CHEM PANEL Albumin Lvl 3.7 g/dL 3.5 - 5.0 05/06/2015 [facility] CHEM PANEL CO2 30 meq/L 24 - 32 05/06/2015 [facility] CHEM PANEL Calcium Lvl 8.8 mg/dL 8.5 - 10.5 05/06/2015 [facility] CHEM PANEL Sodium Lvl 137 meq/L 135 - 145 05/06/2015 [facility] CHEM PANEL Potassium Lvl 3.9 meq/L 3.5 - 5.1 05/06/2015 [facility] CHEM PANEL Chloride Lvl 103 meq/L 95 - 109 05/06/2015 [facility] CHEM PANEL Glucose Lvl 95 mg/dL 70 - 99 05/06/2015 [facility] Chest 2 views Chest 2 views Examination: Chest x-ray, 2 views History: 466.0 acute bronchitis Comparison: 03/18/2014 Findings: The lungs are clear and without focal consolidation. The cardiomediastinal silhouette is within normal limits. No pleural effusion or pneumothorax is seen. The osseous structures are without focal abnormality. IMPRESSION: No acute cardiopulmonary disease. SL: 16 07/19/2014 - - Read by: Lyndon Steele MD Dictated Date/time: 07/19/14 11:14 Electronically Signed by: Lyndon Steele MD 07/19/14 11:14 FINAL REPORT [facility] Spine cervical 2 or 3 view DX Spine cervical 2 or 3 view DX Exam: Cervical spine x-ray, 2 views Reason for Exam: Neck pain Comparison Exam: None Discussion: On lateral view, the cervical spine is seen from the C1 vertebral body level down through the C7/T1 junction. Vertebral body heights are maintained. No spondylolisthesis. No suspicious osteoblastic or osteolytic lesions. Prevertebral soft tissue is within normal limits. Lateral masses of C1 and dens of C2 appear intact. Please note that a cervical spine x-ray cannot rule out ligamentous injuries or spinal cord abnormalities. Visualized portions of the lung apices are unremarkable. Impression: 1. Unremarkable cervical spine x-ray 03/18/2014 - - Read by: Jaime Alarcon MD Dictated Date/time: 03/18/14 16:37 Electronically Signed by: Jaime Alarcon MD 03/18/14 16:38 FINAL REPORT [facility] Chest 2 views Chest 2 views Exam: Two-view chest x-ray Reason for Exam: Pain Comparison Exam: Chest x-ray 08/02/2011 Discussion: Cardiomediastinal silhouette is within normal limits. Both hemidiaphragms well visualized. No pulmonary edema or pleural effusions. No focal lung consolidations. Trachea is midline. No acute bony abnormalities. Impression: 1. No acute cardiopulmonary abnormalities. 03/18/2014 - - Read by: Jaime Alarcon MD Dictated Date/time: 03/18/14 16:35 Electronically Signed by: Jaime Alarcon MD 03/18/14 16:37 FINAL REPORT [facility] Digital Mammo Screening Carlos Manuel MA Digital Mammo Screening Carlos Manuel MA - DIGITAL MAMMO SCREENING CARLOS MANUEL MA BILATERAL DIGITAL SCREENING MAMMOGRAM WITH CAD: 09/23/2013 CLINICAL: Routine. Current study was evaluated with a Computer Aided Detection (CAD) system. Comparison is made to exams dated: 10/05/2008 mammogram - [place], 12/27/2009 mammogram, 08/23/2011 mammogram and 09/18/2012 mammogram - [facility]. There are scattered fibroglandular densities in both breasts. There are benign vascular calcifications in the right breast. No significant masses, calcifications, or other findings are seen in either breast. There has been no significant interval change. IMPRESSION: BENIGN There is no mammographic evidence of malignancy. A screening mammogram in one year is recommended. Perfecto Trujillo M.D. srp/penrad:09/23/2013 09:26:20 Limnology Teacher: Kailee CARTWRIGHT (R)(Laura), [facility] This exam was dictated and interpreted by [id number] for Larry Alarcon. letter sent: Normal exam Mammogram BI-RADS: 2 Benign 09/23/2013 - - Read by: Perfecto Trujillo Dictated Date/time: 09/23/13 09:26 Electronically Signed by: Perfecto Trujillo MD 09/23/13 09:26 FINAL REPORT [facility] Vital Signs Vital Sign Value Date Comments Source Encounters Location Location Details Encounter Type Encounter Number Reason For Visit Attending Provider ADM Date DC Date Status Source [facility] [id number] _MAPID:[id number] Mckenziesam Lewisu 09/23/2013 09/24/2013 CRISTO Lee [facility] [place] [facility] [id number] Phu Peraza 03/18/2014 03/19/2014 [facility] Outpatient [id number] Abel Vital 07/19/2014 07/20/2014 [facility] Outpatient [id number] Phu Peraza 10/27/2014 10/28/2014 [facility] Outpatient [id number] Sunita Vital 05/06/2015 05/07/2015 [facility] Outpatient [id number] Jama Luisel 09/26/2015 09/27/2015 [facility] [place] [facility] [id number] Matt Ellington 11/25/2015 11/26/2015 [facility] Outpatient [id number] Sunita Vital 11/28/2015 11/29/2015 [facility] Outpatient [id number] Teddy Barboza 07/16/2016 07/17/2016 [facility] Procedures Procedure Code Date Perfomer Comments Source
--- OUTSIDE RECORDS SUMMARY | 2018-07-18 09:22 | XMS REPORT | Summary of Care ---
Author Organization Unknown Address Unknown Phone Unavailable Encounter HQ Sumayar_luma([facility]) [id number] Date(s): 03/18/14 - 03/18/14 [facility] Outpatient Imaging - [address] [address]- [place] Discharge Disposition: Home Physician Attending: Phu Peraza MD Reason for Visit V70.0 - ROUTINE MEDICAL Problem List No data available for this section Allergies, Adverse Reactions, Alerts No data available for this section Medications No data available for this section Medications Administered During Your Visit No data available for this section Immunizations No data available for this section
--- OUTSIDE RECORDS SUMMARY | 2018-07-18 09:22 | XMS REPORT | Summary of Care ---
Author Organization Unknown Address Unknown Phone Unavailable Encounter HQ Encntr_luma([facility]) [id number] Date(s): 10/27/14 - 10/27/14 [facility] [address] [place] [address]- Discharge Disposition: Home Physician Attending: Phu Peraza MD Physician_Referring: Phu Peraza MD Vital Signs No data available for this section Problem List No data available for this section Allergies, Adverse Reactions, Alerts No data available for this section Medications No data available for this section Results No data available for this section Immunizations No data available for this section Procedures No data available for this section Social History No data available for this section Assessment and Plan No data available for this section
--- OUTSIDE RECORDS SUMMARY | 2018-07-18 09:22 | XMS REPORT | Summary of Care ---
Author Author [facility] Organization [facility] Address Unknown Phone Unavailable Encounter HQ Dangelontr_luma([facility]) [id number] Date(s): 09/26/15 - 09/26/15 [facility] [address] [place] [address]- Discharge Disposition: Home Attending Physician: Jama Yarbrough MD Vital Signs No data available for this section Problem List No data available for this section Allergies, Adverse Reactions, Alerts No data available for this section Medications No data available for this section Results IMMUNOLOGY Most recent to 1 oldest [Reference Range]: UGO [Negative] Negative (09/26/15 3:31 PM) RF Qnt [0-20 IU/mL] <10 IU/mL (09/26/15 3:31 PM) SCL- 70 Ab [<=0.9 <0.2 AI AI] (09/26/15 3:31 PM) C-ANCA [Negative] Negative (09/26/15 3:31 PM) P-ANCA [Negative] Negative (09/26/15 3:31 PM) HEMATOLOGY Most recent to 1 oldest [Reference Range]: Sed Rate [0-20 23 mm/hr mm/hr] *HI* (09/26/15 3:31 PM) Immunizations No data available for this section Procedures No data available for this section Social History No data available for this section Assessment and Plan No data available for this section
--- OUTSIDE RECORDS SUMMARY | 2018-07-18 09:22 | XMS REPORT | Summary of Care ---
Author Organization Unknown Address Unknown Phone Unavailable Encounter HQ Sumayar_luma([facility]) [id number] Date(s): 07/19/14 - 07/19/14 [facility] [address] [address] Discharge Disposition: Home Physician Attending: Abel Hairston MD Reason for Visit 466.0 Problem List No data available for this section Allergies, Adverse Reactions, Alerts No data available for this section Medications No data available for this section Medications Administered During Your Visit No data available for this section Immunizations No data available for this section
--- OUTSIDE RECORDS SUMMARY | 2018-07-18 09:22 | XMS REPORT | Summary of Care ---
Author Author [facility] Organization [facility] Address Unknown Phone Unavailable Encounter Encntr_alimary([facility]) [id number] Date(s): 11/25/15 - 11/25/15 [facility] [address] [address] [phone] Final: Encounter for screening mammogram for malignant neoplasm of breast Discharge Disposition: Home Attending Physician: Matt Ellington MD Vital Signs No data available for [...]
[2018-07-18 15:00] VITALS: BP 142/98
--- NOTE | 2018-07-18 15:29 | Operative Report ---
DATE OF PROCEDURE: July 18, 2018 REFERRING PHYSICIAN: Gm Love MD PROCEDURES PERFORMED 1. Esophagogastroduodenoscopy with biopsies and esophageal dilatation. 2. Colonoscopy with biopsies. INDICATIONS FOR EGD: History of heartburn and indigestion, dysphagia to solids. INDICATIONS FOR COLONOSCOPY: Surveillance colonoscopy. Personal history of colon polyps. MEDICATION: Patient was done under MAC. Please see anesthesiologist's note. PROCEDURE: With the patient in the left lateral decubitus position, the flexible fiberoptic Olympus gastroscope was introduced into the esophagus under direct visualization without any difficulty. There was some patchy erythema noted in the distal esophagus. A minute tongue of velvety red mucosa was noted to extend proximally from the GE junction. That was biopsied to rule out Stinson's. The scope was then advanced with ease into the stomach, traversing a moderate-size hiatal hernia. The mucosa overlying the antrum and the body revealed some patchy erythema and low-grade to moderate edema, and biopsies were obtained and sent to stain for H. pylori. Hyperplastic-appearing polyps were noted in the body of the stomach. Some were partially excised with the cold biopsy forceps. Pylorus appeared to be of normal contour and shape. It was intubated with ease, and the scope was advanced all the way to the 2nd portion of the duodenum. The scope was then withdrawn slowly. Mucosa overlying the proximal 2nd portion and the duodenal bulb appeared to be within normal limits. The scope was then withdrawn back into the stomach and retroflexed. The mucosa overlying the fundus appeared to be within normal limits. The previously described hiatal hernia was also noted in the retroflexed position. The scope was then straightened out. It was subsequently withdrawn. Patient tolerated the procedure well. IMPRESSION 1. Mild distal esophagitis. 2. Rule out Stinson's esophagus. 3. Esophagus dilated to size 52-Greenlandic Yu. 4. Moderate-size hiatal hernia. 5. Gastritis, biopsied. Biopsies sent to stain for H. pylori. 6. Gastric polyps, body, partially excised with cold biopsy forceps. PLAN: Follow up histology. Continue omeprazole 40 mg 1 p.o. a.c. b.i.d. The patient was then turned around. After adequate lubrication of the anal canal, a flexible fiberoptic Olympus colonoscope was inserted into the rectum with ease and advanced all the way to the cecum. The mucosa overlying the cecum appeared to be within normal limits. Some aphthous-like ulcerations were noted in the ascending colon, and biopsies were obtained. Also, a single diverticulum was noted in the ascending colon, and several aphthous-like ulcerations were noted in the ascending colon, and biopsies were obtained. Mucosa overlying the transverse, descending, sigmoid and rectum grossly appeared to be within normal limits. The scope was then retroflexed into the distal rectum, and moderate-size internal hemorrhoids were noted, none of which was actively bleeding. The scope was then straightened out. It was subsequently withdrawn. Patient tolerated the procedure well. IMPRESSION 1. Single diverticulum, proximal ascending colon. 2. Aphthous-like ulcers, ascending colon. Biopsies obtained. 3. Internal hemorrhoids, none actively bleeding. PLAN: Follow up histology. Initiate high-fiber, low-fat diet. Initiate high-fiber supplement. Patient might benefit from a followup colonoscopy in 5 years. Job#: [id number] cc:GM LOVE MD
== END | disposition home or self-care (01) ==
LOC: OR 09:19
PROVIDERS: ATTEND Internal Medicine Gastroenterology
DX: K20.9 Esophagitis, unspecified (principal); K31.7 Polyp of stomach and duodenum; K29.70 Gastritis, unspecified, without bleeding; K63.3 Ulcer of intestine; K21.9 Gastro-esophageal reflux disease without esophagitis; K22.8 Other specified diseases of esophagus; K44.9 Diaphragmatic hernia without obstruction or gangrene; K57.30 Diverticulosis of large intestine without perforation or abscess without bleeding; K64.8 Other hemorrhoids; I10 Essential (primary) hypertension; E11.9 Type 2 diabetes mellitus without complications; F41.9 Anxiety disorder, unspecified; Z88.6 Allergy status to analgesic agent; Z01.810 Encounter for preprocedural cardiovascular examination
CPT/HCPCS: 36415; 43239; 43450; 45380; 82948; 93005; J1980; J2001; J2250; J2370; 45378

== ENCOUNTER → 2019-08-07 | Outpatient (CLI) | payer BC ==
[~2019-08-07] MED LIST changes: +DICYCLOMINE HCL20 MG PO; -FENTANYL CITRATE/PF 100MCG/2 ML INJ ONE; -HYOSCYAMINE SULFATE 0.5 MG/ML INJ ONE; +IOPAMIDOL 370 MG/ML 200 ML INFUS..BTL INJ ONE; -LIDOCAINE HCL 2% LOCAL INJ 5 ML SDV VIAL INJ ONE; +LIPITOR20 MG PO; -MIDAZOLAM HCL 2 MG/2 ML VIAL ONE; +PANTOPRAZOLE SO40 MG PO; -PHENYLEPHRINE HCL 1% 10 MG/ML VIAL ONE; -PROPOFOL IV EMULSION 10 MG/ML 50 ML VIAL ONE; +SODIUM CHLORIDE 0.9% 50ML 50 ML ONE; +TOPIRAMATE100 MG PO
[2019-08-07 16:24] LABS: BLOOD UREA NITROGEN 13 mg/dL (7-26); BUN/CREATININE RATIO 18 (6-25); CREATININE, SERUM 0.74 mg/dL (0.57-1.11); EST GLOMERULAR FILTRATION RATE > 60 ML/MIN (60-)
--- NOTE | 2019-08-07 18:05 | Diagnostic Imaging Report ---
EXAM: CT Abdomen and Pelvis WITH contrast INDICATION: Pain. COMPARISON: 05/11/2017. TECHNIQUE: Abdomen and pelvis were scanned utilizing a multidetector helical scanner from the lung base to the pubic symphysis after administration of IV contrast. Coronal and sagittal reformations were obtained. Routine protocol was performed. Scan was performed when during portal venous phase. IV CONTRAST: 100 cc Isovue-300 ORAL CONTRAST: Water RADIATION DOSE: Total DLP: 474.90 mGy*cm Estimated effective dose: (DLP x 0.015 x size factor) mSv COMPLICATIONS: None FINDINGS: LINES and TUBES: None. LOWER THORAX: There is bibasilar dependent atelectasis. Tiny hiatal hernia. HEPATOBILIARY: No focal hepatic lesions. No biliary ductal dilation. GALLBLADDER: No radio-opaque stones or sludge. No wall thickening. SPLEEN: No splenomegaly. PANCREAS: No focal masses or ductal dilatation. ADRENALS: No adrenal nodules KIDNEYS/URETERS: Kidneys enhance symmetrically. No hydronephrosis. No cystic or solid mass lesions. No stones. GI TRACT: The stomach is nondistended which precludes evaluation. No abnormal distention, wall thickening, or evidence of bowel obstruction. There are diverticula scattered throughout the colon without evidence of diverticulitis. Appendix is normal. PELVIC ORGANS/BLADDER: Unremarkable. LYMPH NODES: No lymphadenopathy. VESSELS: Unremarkable. PERITONEUM / RETROPERITONEUM: No free air or fluid. BONES: Unremarkable. SOFT TISSUES: Unremarkable. IMPRESSION: 1. Colonic diverticulosis without acute diverticulitis. Signed by: Dr. Brandon Sparks M.D. on 08/07/2019 6:02 PM
== END ==
LOC: CT 14:26
PROVIDERS: ATTEND Internal Medicine Gastroenterology
DX: R10.10 Upper abdominal pain, unspecified (principal)
CPT/HCPCS: 36415; 74177; 82565; 84520; Q9967

== ENCOUNTER → 2019-08-12 | Day surgery (SDC) | payer BC ==
[~2019-08-12] MED LIST changes: -IOPAMIDOL 370 MG/ML 200 ML INFUS..BTL INJ ONE; +LIDOCAINE HCL 2% LOCAL INJ 5 ML SDV VIAL INJ ONE; +METOCLOPRAMIDE HCL 10 MG/2ML VIAL ONE; +PROPOFOL IV EMULSION 10 MG/ML 50 ML VIAL ONE; -SODIUM CHLORIDE 0.9% 50ML 50 ML ONE
[2019-08-12 10:00] VITALS: BP 150/87
--- NOTE | 2019-08-12 13:46 | Operative Report ---
DATE OF PROCEDURE: 08/12/2019 SURGEON: Jorge Abernathy MD PROCEDURES: EGD with biopsies, polypectomy and esophageal dilatation. INDICATIONS FOR EGD: Dysphagia, upper abdominal pain, excessive belching. MEDICATIONS: The patient was done under MAC, please see anesthesiologist's note. PROCEDURE IN DETAIL: With the patient in the left lateral decubitus position, a flexible fiberoptic Olympus gastroscope was introduced into the esophagus under direct visualization without any difficulty. There was some patchy erythema noted in distal esophagus. A mild stricture was noted at the GE junction that was dilated to size 52-Ukrainian Yu. The scope was then advanced with ease into the stomach traversing a medium-sized hiatal hernia. Mucosa overlying the antrum and the body revealed some patchy erythema and [id number] edema, and biopsies were obtained and sent to stain for H. pylori. Several hyperplastic-appearing polyps were noted in the stomach and the fundus, and some were partially excised with the cold biopsy forceps. The pylorus was of normal contour and shape, was intubated with ease and the scope was advanced all the way to the second portion of the duodenum. The scope was then withdrawn slowly and mucosa overlying the proximal second portion and duodenal bulb grossly appeared to be within normal limits. Biopsies were obtained to rule out sprue. The scope was then withdrawn back into the stomach and retroflexed, and previously described hiatal hernia was also noted in the retroflexed position. The scope was then straightened out, it was subsequently withdrawn, and the patient tolerated the procedure well. IMPRESSION: 1. Distal esophagitis. 2. Esophageal stricture, GE junction, dilated to size 52-Ukrainian Yu. 3. Moderate-sized hiatal hernia. 4. Gastritis. 5. Gastric polyps, hyperplastic-appearing, some partially excised with the cold biopsy forceps. 6. Rule out sprue. PLAN: Follow up histology. Continue Protonix 40 mg 1 p.o. before meals b.i.d. Add Carafate 1 g p.o. before meals t.i.d. and at bedtime. If the excessive belching persist, then we will start the patient on Reglan 10 mg 1 p.o. before meals t.i.d. and at bedtime. Jorge Abernathy MD [facility]/MODL /[id number] cc: Ugo Love MD
== END | disposition home or self-care (01) ==
LOC: OR 06:17
PROVIDERS: ATTEND Internal Medicine Gastroenterology
DX: K22.2 Esophageal obstruction (principal); K31.7 Polyp of stomach and duodenum; K29.60 Other gastritis without bleeding; Z80.0 Family history of malignant neoplasm of digestive organs; K21.9 Gastro-esophageal reflux disease without esophagitis; K28.9 Gastrojejunal ulcer, unspecified as acute or chronic, without hemorrhage or perforation; K44.9 Diaphragmatic hernia without obstruction or gangrene; K20.8 Other esophagitis; K59.00 Constipation, unspecified; K58.1 Irritable bowel syndrome with constipation; G47.33 Obstructive sleep apnea (adult) (pediatric); E11.9 Type 2 diabetes mellitus without complications; J45.909 Unspecified asthma, uncomplicated; E78.5 Hyperlipidemia, unspecified; F41.9 Anxiety disorder, unspecified; Z88.6 Allergy status to analgesic agent; Z01.810 Encounter for preprocedural cardiovascular examination; Z79.84 Long term (current) use of oral hypoglycemic drugs; Z86.010 Personal history of colon polyps
CPT/HCPCS: 36415; 43239; 43450; 82948; 93005; J2001; J2704; J2765

== ENCOUNTER 2019-08-25 16:49 | Inpatient (IN) | payer BC, OTHER ==
[~2019-08-25 16:49] MED LIST changes: -LIDOCAINE HCL 2% LOCAL INJ 5 ML SDV VIAL INJ ONE; -METOCLOPRAMIDE HCL 10 MG/2ML VIAL ONE; -PROPOFOL IV EMULSION 10 MG/ML 50 ML VIAL ONE
[2019-08-25 17:39] VITALS: BP 135/97
[2019-08-25 17:47] VITALS: BP 135/97
--- NOTE | 2019-08-25 17:52 | NUR ---
PATIENT ARRIVED ON THE UNIT AT 1703 PER STRETCHER WITH 2 PERSON EMS SERVICE FROM [facility] (ON [address]). PATIENT IS AWAKE, ALERT, AND IN STABLE CONDITION WITH NO S/S OF RESPIRATORY DISTRESS. PATIENT C/O BLADDER AND LOWER BACK PAIN 10/01. CALL PLACED OUT TO DR. WASHBURN FOR ORDERS- AWAITING CALLBACK. SKINS INTACT. CALL LIGHT IS WITHIN REACH, PATIENT INSTRUCTED TO CALL FOR ASSISTANCE NEEDED.
[2019-08-25] MEDS ORDERED: ACETAMINOPHEN 325 MG TAB PO PRN (18:30)
[2019-08-25] MEDS ORDERED: DEXTROSE 50% SYRINGE 50 ML IV PRN (18:30)
[2019-08-25] MEDS ORDERED: ONDANSETRON HCL 4 MG ORAL DISINTEGRATING TAB PO PRN (18:30)
--- NOTE | 2019-08-25 19:19 | NUR ---
PATIENT IN STABLE CONDITION WITH NO S/S OF RESPIRATORY DISTRESS. NO PAIN VOICED. FAMILY PRESENT IN ROOM. CALL LIGHT IS WITHIN REACH, PATIENT INSTRUCTED TO CALL FOR ASSISTANCE NEEDED. BEDSIDE SHIFT REPORT GIVEN TO ONCOMING NURSE.
[2019-08-25 20:00] VITALS: BP 126/80
[2019-08-25] MEDS: INSULIN LISPRO 100 UNIT/1 ML 3ML VIAL SQ SCH (20:23)
[2019-08-25 21:00] VITALS: BP 126/80
[2019-08-25] MEDS ORDERED: SODIUM CHLORIDE 0.9% 250ML 250 ML ONE (21:21)
[2019-08-25] MEDS: MEROPENEM 500MG 250 MG in SODIUM CHLORIDE 0.9% 50ML 50 ML IV SCH (21:28)
[2019-08-26] VITALS (9 sets, daily range): BP systolic 110–134; BP diastolic 65–84
[2019-08-26] MEDS ORDERED: MEROPENEM IV SCH
[2019-08-26] MEDS ORDERED: [UNRECOGNIZED DRUG - OTHER] IV SCH
[2019-08-26] MEDS ORDERED: SODIUM CHLORIDE IV SCH
[2019-08-26] MEDS: MEROPENEM 500MG 250 MG in SODIUM CHLORIDE 0.9% 50ML 50 ML IV SCH ×4 (03:27→21:00)
--- NOTE | 2019-08-26 07:00 | NUR ---
PATIENT IS AWAKE, ALERT, AND LAYING DOWN IN BED- PATIENT IN STABLE CONDITION WITH NO S/S OF RESPIRATORY DISTRESS. PAIN DENIED. CALL LIGHT IS WITHIN REACH, PATIENT INSTRUCTED TO CALL FOR ASSISTANCE NEEDED.
[2019-08-26] MEDS: INSULIN LISPRO 100 UNIT/1 ML 3ML VIAL SQ SCH ×4 (07:30→21:00)
[2019-08-26] MEDS ORDERED: PROMETHAZINE HC25 M1 PO (08:47)
[2019-08-26] MEDS ORDERED: NITROFURANTOIN100 MG PO (08:47)
[2019-08-26] MEDS ORDERED: SUCRALFATE1 GM PO (08:47)
[2019-08-26] MEDS ORDERED: PHENAZOPYRIDIN100 MG PO (08:47)
[2019-08-26] MEDS: TOPIRAMATE 100 MG TAB PO SCH (10:17)
[2019-08-26] MEDS: PANTOPRAZOLE SOD 40 MG TABEC PO SCH ×2 (10:18→16:21)
[2019-08-26] MEDS: PAROXETINE HCL 20 MG TAB PO SCH (10:18)
[2019-08-26] MEDS: DICYCLOMINE HCL 20 MG TAB PO SCH ×3 (10:18→23:04)
[2019-08-26] MEDS: NEBIVOLOL 10 MG TAB PO SCH (10:18)
--- NOTE | 2019-08-26 11:16 | History and Physical ---
SUBJECTIVE: The patient is a 64-year-old female with past medical history positive for hypertension and diabetes, came to the emergency room complaining of burning on urination. She was found to have urinary tract infection with a multidrug-resistant bacteria, started on IV gentamicin and then changed to meropenem, and then transferred to the emergency room here. REVIEW OF SYSTEMS: CARDIOVASCULAR: No chest pain or palpitation. RESPIRATORY: No shortness of breath. No cough. GASTROINTESTINAL: No nausea or vomiting. No diarrhea. GENITOURINARY: She has burning of urination and lower abdominal pain. ALLERGIES: TO ASPIRIN. PAST MEDICAL HISTORY: Hypertension and diabetes. SOCIAL HISTORY: She does not smoke. She does not drink. PHYSICAL EXAMINATION: HEART: Showed regular rhythm. Normal S1 and S2 sound. LUNGS: Clear bilaterally. ABDOMEN: Soft. EXTREMITIES: Show no evidence of cyanosis or hematoma. VITAL SIGNS: Blood pressure 110/84, temperature 97.3, heart rate 64 per minute, respiratory rate 17 per minute, and oxygen saturation 97%. FINAL IMPRESSION: 1. Urinary tract infection with extended-spectrum beta-lactamases bacteria which is Escherichia coli. 2. Uncontrolled diabetes mellitus type 2. 3. Hypertension. PLAN OF TREATMENT: Meropenem 250 mg IV q.6 hours. Continue with Tylenol 650 mg q.4 hours as needed for pain or fever, Lipitor 40 mg daily, and Bentyl 10 mg 3 times a day. Continue monitoring blood sugar before meals and at bedtime. Continue Bystolic 20 mg daily, Zofran 4 mg p.o. q.4 hours as needed for nausea and vomiting, Protonix 40 mg twice a day, Paxil 20 mg daily, Topamax 50 mg daily, and Trulicity 1.5 mg subcutaneously daily. Diet, diabetic diet. MD JAYESH Villalobos/JOHN /[id number]
--- NOTE | 2019-08-26 14:49 | NUR ---
PATIENT ARRIVED ON THE UNIT AT 1403 PER STRETCHER FROM THE ER. PATIENT IN STABLE CONDITION WITH NO S/S OF RESPIRATORY DISTRESS. NO PAIN VOICED. TELEMETRY APPLIED. BRUISE NOTED TO RIGHT FOREARM. 02 APPLIED AT 2L NC. CALL LIGHT IS WITHIN REACH, PATIENT INSTRUCTED TO CALL FOR ASSISTANCE NEEDED. Addendum: 08/26/19 at 1452 by Arleth Cordon RN WRONG ENTRY
--- NOTE | 2019-08-26 19:15 | NUR ---
PATIENT SITTING IN THE RECLINER- IN STABLE CONDITION WITH NO S/S OF RESPIRATORY DISTRESS. NO PAIN VOICED. FAMILY MEMBER PRESENT IN ROOM. CALL LIGHT IS WITHIN REACH, PATIENT INSTRUCTED TO CALL FOR ASSISTANCE NEEDED. BEDSIDE SHIFT REPORT GIVEN TO ONCOMING NURSE.
[2019-08-26] MEDS: ATORVASTATIN 40 MG TAB PO SCH (23:04)
[2019-08-27] VITALS (8 sets, daily range): BP systolic 108–140; BP diastolic 59–90
[2019-08-27] MEDS: MEROPENEM 500MG 250 MG in SODIUM CHLORIDE 0.9% 50ML 50 ML IV SCH ×4 (05:39→20:53)
--- NOTE | 2019-08-27 07:00 | NUR ---
BEDSIDE SHIFT REPORT RECEIVED FROM THE COMMUNITY SERVICES MANAGER RN. EDUCATED PT ABOUT FALL PRECAUTIONS. PT VERBALIZED UNDERSTANDING. CALL LIGHT WITH IN EASY REACH. INSTRUCTED PT TO USE CALL LIGHT FOR ALL THE NEEDS. BED IS LOW AND LOCKED. SIDE RAILS X2. PT DENIES NEEDS AT THIS TIME.
[2019-08-27] MEDS: INSULIN LISPRO 100 UNIT/1 ML 3ML VIAL SQ SCH ×4 (07:30→20:54)
[2019-08-27] MEDS: DICYCLOMINE HCL 20 MG TAB PO SCH ×3 (09:56→20:54)
[2019-08-27] MEDS: NEBIVOLOL 10 MG TAB PO SCH (09:56)
[2019-08-27] MEDS: PAROXETINE HCL 20 MG TAB PO SCH (09:56)
[2019-08-27] MEDS: PANTOPRAZOLE SOD 40 MG TABEC PO SCH ×2 (09:57→17:33)
[2019-08-27] MEDS: TOPIRAMATE 100 MG TAB PO SCH (09:57)
--- NOTE | 2019-08-27 11:21 | Progress Note ---
DATE: 08/27/2019 Internal Medicine Progress Note SUBJECTIVE: The patient is doing well. No significant complaint. PHYSICAL EXAMINATION: HEART: Showed regular rhythm. Normal S1 and S2 sound. LUNGS: Clear bilaterally. ABDOMEN: Soft and nontender. No distention. VITAL SIGNS: Blood pressure is 140/73, heart rate 72 per minute, respiratory rate 18 per minute, temperature 97.7, and oxygen saturation 96%. LABORATORY DATA: Blood sugar is 89. FINAL IMPRESSION: Urinary tract infection with extended-spectrum beta-lactamases Escherichia coli. She also has a diagnosis of hypertension, diabetes mellitus type 2, and gastroesophageal reflux disease. PLAN OF TREATMENT: Continue meropenem 250 mg IV q.6 hours. Continue Tylenol 650 mg q.4 hours as needed for mild pain, Lipitor 40 mg daily, and Bentyl 10 mg 3 times a day. Continue monitoring blood sugar before meals and at bedtime. Continue Bystolic 20 mg daily, Zofran 4 mg p.o. q.4 hours as needed for nausea and vomiting, Protonix 40 mg twice a day, Paxil 20 mg daily, Topamax 50 mg daily, Trulicity 1.5 mg subcutaneously once a week. MD JAYESH Villalobos/JOHN /[id number]
--- NOTE | 2019-08-27 19:00 | NUR ---
BEDSIDE SHIFT REPORT GIVEN TO THE BAGGAGE SCREENER RN. PT DENIED FURTHER NEEDS.
[2019-08-27] MEDS: ATORVASTATIN 40 MG TAB PO SCH (20:54)
[2019-08-28] VITALS (7 sets, daily range): BP systolic 109–144; BP diastolic 57–79
[2019-08-28] MEDS: MEROPENEM 500MG 250 MG in SODIUM CHLORIDE 0.9% 50ML 50 ML IV SCH ×4 (03:00→20:40)
--- NOTE | 2019-08-28 07:00 | NUR ---
BEDSIDE SHIFT REPORT RECEIVED FROM THE DIRECTOR OF DESIGN RN. EDUCATED PT ABOUT FALL PRECAUTIONS. PT VERBALIZED UNDERSTANDING. CALL LIGHT WITH IN EASY REACH. INSTRUCTED PT TO USE CALL LIGHT FOR ALL THE NEEDS. BED IS LOW AND LOCKED. SIDE RAILS X2. PT DENIES NEEDS AT THIS TIME.
[2019-08-28] MEDS: INSULIN LISPRO 100 UNIT/1 ML 3ML VIAL SQ SCH ×4 (07:30→20:53)
[2019-08-28] MEDS ORDERED: SODIUM CHLORIDE 0.9% 1000ML 0 ML ONE (08:23)
[2019-08-28] MEDS: TOPIRAMATE 100 MG TAB PO SCH (09:20)
[2019-08-28] MEDS: DICYCLOMINE HCL 20 MG TAB PO SCH ×3 (09:20→20:40)
[2019-08-28] MEDS: PAROXETINE HCL 20 MG TAB PO SCH (09:20)
[2019-08-28] MEDS: PANTOPRAZOLE SOD 40 MG TABEC PO SCH ×2 (09:20→17:03)
[2019-08-28] MEDS: NEBIVOLOL 10 MG TAB PO SCH (09:20)
--- NOTE | 2019-08-28 11:30 | NUR ---
PAGED DR. WASHBURN OFFICE REGARDING CBC & BMP. WAITING FOR THE RESPONSE FROM THE
--- NOTE | 2019-08-28 11:47 | Progress Note ---
DATE: 08/28/2019 SUBJECTIVE: Ms. Welch is a 64-year-old female with history of hypertension, hyperlipidemia, and diabetes who came to the emergency room with burning urination. She was found to have urinary tract infection with multidrug resistant bacteria, so she was started on IV meropenem and admitted to the hospital. OBJECTIVE: GENERAL: Today, she is awake and alert. She is feeling better. VITAL SIGNS: Temperature is 96.7 and blood pressure 109/57. HEART: Regular rate. LUNGS: Clear to auscultation. ABDOMEN: Soft. LABORATORY DATA: On the blood work, glucose 88. I do not have any cultures available. Abdominal and pelvic CT show colonic diverticulosis without acute diverticulitis. ASSESSMENT: 1. Urinary tract infection with extended spectrum beta-lactamase Escherichia coli. 2. Diabetes type 2 with hypoglycemia. 3. Hypertension. 4. Hyperlipidemia. 5. Reflux. PLAN: At present time is to continue ADA diet. Continue insulin. She is on statins. Continue all her blood pressure medications. Continue meropenem 250 mg IV q.6 hours. Continue PPIs. All this was discussed with the patient in extension. All questions were answered to satisfaction. MD TRUPTI Bello/JOHN /[id number]
--- NOTE | 2019-08-28 19:00 | NUR ---
BEDSIDE SHIFT REPORT GIVEN TO THE HUMAN SERVICE COORDINATOR RN. PT DENIED FURTHER NEEDS.
[2019-08-28] MEDS: ATORVASTATIN 40 MG TAB PO SCH (20:40)
[2019-08-29] VITALS (11 sets, daily range): BP systolic 97–157; BP diastolic 56–85
[2019-08-29] MEDS: MEROPENEM 500MG 250 MG in SODIUM CHLORIDE 0.9% 50ML 50 ML IV SCH ×5 (03:25→20:24)
[2019-08-29 06:11] LABS: BASOPHILS % 0.5 % (0.0-1.0); EOSINOPHILS # (AUTO) 0.1 (0.0-0.4); EOSINOPHILS % 1.1 % (0.0-6.0); HEMATOCRIT 41.3 % (34.2-44.1); HEMOGLOBIN 12.9 g/dL (12.0-16.0); LYMPHOCYTES # (AUTO) 3.4 (1.0-3.2); LYMPHOCYTES % 40.4 % (18.0-39.1); MEAN CORPUSCULAR HEMOGLOBIN 31.2 pg (28-32); MEAN CORPUSCULAR HGB CONC 31.2 g/dL (31-35); MEAN CORPUSCULAR VOLUME 99.8 fL (81-99); MONOCYTES # (AUTO) 0.7 (0.2-0.8); MONOCYTES % 7.9 % (4.4-11.3); NEUTROPHILS # (AUTO) 4.1 (2.1-6.9); NEUTROPHILS % 49.6 % (38.7-80.0); PLATELET COUNT 318 x10e3/uL (140-360); RED BLOOD COUNT 4.14 x10e6/uL (3.6-5.1); RED CELL DISTRIBUTION WIDTH 13.8 % (11.7-14.4)
[2019-08-29 06:31] LABS: ANION GAP 9.6 mmol/L (8-16); BLOOD UREA NITROGEN 13 mg/dL (7-26); BUN/CREATININE RATIO 21 (6-25); CALCIUM 9.1 mg/dL (8.4-10.2); CARBON DIOXIDE 25 mmol/L (22-29); CHLORIDE 109 mmol/L (98-107); CREATININE, SERUM 0.61 mg/dL (0.57-1.11); EST GLOMERULAR FILTRATION RATE > 60 ML/MIN (60-); GLUCOSE 80 mg/dL (74-118); POTASSIUM 3.6 mmol/L (3.5-5.1); SODIUM 140 mmol/L (136-145)
--- NOTE | 2019-08-29 07:00 | NUR ---
RECEIVED PATIENT AWAKE RESTING IN BED. NO S/S OF DISTRESS. BED LOW, WHEELS LOCKED, SIDE RAILS X2. CALL LIGHT IN REACH WILL CONTINUE TO MONITOR PATIENT.
[2019-08-29] MEDS: INSULIN LISPRO 100 UNIT/1 ML 3ML VIAL SQ SCH ×4 (07:30→20:17)
[2019-08-29] MEDS: NEBIVOLOL 10 MG TAB PO SCH (09:28)
[2019-08-29] MEDS: DICYCLOMINE HCL 20 MG TAB PO SCH ×3 (09:28→20:18)
[2019-08-29] MEDS: PAROXETINE HCL 20 MG TAB PO SCH (09:28)
[2019-08-29] MEDS: PANTOPRAZOLE SOD 40 MG TABEC PO SCH ×2 (09:28→17:30)
[2019-08-29] MEDS: TOPIRAMATE 100 MG TAB PO SCH (09:28)
--- NOTE | 2019-08-29 13:27 | Progress Note ---
DATE: 08/29/2019 CHIEF COMPLAINT/HISTORY OF PRESENT ILLNESS: This is a 64-year-old woman, whose primary treating diagnosis is ESBL E coli urinary tract infection. Apparently, this urine culture was done as an outpatient. This strain E coli is only sensitive to amikacin, gentamicin, meropenem, and tobramycin. The patient voices no complaints. The patient states she is doing quite well. Complete blood count today revealed a white blood cell count 8300 with 49% segmenters. The patient's serum chemistry today are within normal limits. REVIEW OF SYSTEMS: As per HPI. PHYSICAL EXAMINATION: GENERAL: She is awake, alert, fluent, in no distress, very pleasant and cooperative. VITAL SIGNS: Blood pressure is 122/66, pulse 84, respiratory rate 18, oxygen 96%, temperature 96.7. INTEGUMENT: Skin is warm and dry. No pallor, jaundice, or diaphoresis. HEENT: Anicteric sclerae. Moist mucous membranes. NECK: Supple. CARDIOVASCULAR: Regular rhythm. LUNGS: No rales. No rhonchi or wheezes. EXTREMITIES: No edema or deformity. Neurologic: Intact. DIAGNOSIS: 1. ESBL E coli urinary tract infection. 2. Type 2 diabetes. 3. Hypertensive heart disease. PLAN: 1. Continue intravenous meropenem for the patient's ESBL E coli urinary tract infection. 2. Continue glucose control with the patient's injectable Trulicity. 3. We will follow electrolytes and white blood cell count. I spent 20 minutes in the care of the patient. MD ISA Pierson/JOHN /[id number] NICOLASA
--- NOTE | 2019-08-29 19:39 | NUR ---
PATIENT AWAKE ALERT ORIENTED x 4, FAMILY AT BEDSIDE, BSSR RECEIVED FROM [facility], PT SEEN IN NO DISTRESS, NO C/O PAIN OR DISCOMFORT AT THIS TIME, REMAIN ON ISOLATION AT THIS TIME
[2019-08-29] MEDS: ATORVASTATIN 40 MG TAB PO SCH (20:18)
[2019-08-30] VITALS (7 sets, daily range): BP systolic 97–129; BP diastolic 56–69
[2019-08-30 06:22] LABS: BASOPHILS % 0.5 % (0.0-1.0); EOSINOPHILS # (AUTO) 0.1 (0.0-0.4); EOSINOPHILS % 1.1 % (0.0-6.0); HEMATOCRIT 37.9 % (34.2-44.1); HEMOGLOBIN 12.5 g/dL (12.0-16.0); LYMPHOCYTES # (AUTO) 3.4 (1.0-3.2); LYMPHOCYTES % 45.3 % (18.0-39.1); MEAN CORPUSCULAR VOLUME 96.9 fL (81-99); MONOCYTES # (AUTO) 0.6 (0.2-0.8); MONOCYTES % 7.5 % (4.4-11.3); NEUTROPHILS # (AUTO) 3.4 (2.1-6.9); NEUTROPHILS % 45.2 % (38.7-80.0); PLATELET COUNT 354 x10e3/uL (140-360); RED BLOOD COUNT 3.91 x10e6/uL (3.6-5.1)
[2019-08-30 06:50] LABS: ALANINE AMINOTRANSFERASE 27 IU/L (0-55); ALBUMIN 3.2 g/dL (3.5-5.0); ALKALINE PHOSPHATASE 106 IU/L (40-150); ANION GAP 8.9 mmol/L (8-16); BLOOD UREA NITROGEN 16 mg/dL (7-26); BUN/CREATININE RATIO 27 (6-25); CALCIUM 8.8 mg/dL (8.4-10.2); CARBON DIOXIDE 24 mmol/L (22-29); CHLORIDE 113 mmol/L (98-107); CREATININE, SERUM 0.59 mg/dL (0.57-1.11); EST GLOMERULAR FILTRATION RATE > 60 ML/MIN (60-); GLUCOSE 87 mg/dL (74-118); POTASSIUM 3.9 mmol/L (3.5-5.1); SODIUM 142 mmol/L (136-145)
--- NOTE | 2019-08-30 07:00 | NUR ---
RECEIVED PATIENT RESTING IN BED NO S/S OF DISTRESS. BED LOW, WHEELS LOCKED, SIDE RAILS X2. CALL LIGHT IN REACH WILL CONTINUE TO MONITOR PATIENT.
--- NOTE | 2019-08-30 07:02 | NUR ---
BEDSIDE SHIFT REPORT GIVEN TO THE RN KANDICE DAY SHIFT. PT DENIED FURTHER NEEDS. NO DISTRESS NOTED, NO REPORTS OF PAIN AT THIS TIME, CALL LIGHT WITHIN REACH
[2019-08-30] MEDS: INSULIN LISPRO 100 UNIT/1 ML 3ML VIAL SQ SCH ×2 (07:30→11:19)
[2019-08-30] MEDS: DICYCLOMINE HCL 20 MG TAB PO SCH (08:55)
[2019-08-30] MEDS: MEROPENEM 500MG 250 MG in SODIUM CHLORIDE 0.9% 50ML 50 ML IV SCH (08:55)
[2019-08-30] MEDS: PANTOPRAZOLE SOD 40 MG TABEC PO SCH (08:55)
[2019-08-30] MEDS: PAROXETINE HCL 20 MG TAB PO SCH (08:55)
[2019-08-30] MEDS: NEBIVOLOL 10 MG TAB PO SCH (08:55)
[2019-08-30] MEDS: TOPIRAMATE 100 MG TAB PO SCH (08:55)
--- NOTE | 2019-08-30 12:46 | Discharge Summary ---
ADMIT DIAGNOSES: 1. Escherichia coli (ESBL) urinary tract infection. 2. Type 2 diabetes. DISCHARGE DIAGNOSES: 1. Escherichia coli (ESBL) urinary tract infection, resolving. 2. Type 2 diabetes. HOSPITAL COURSE: This is a 64-year-old woman who was initially admitted to [facility] from a local freestanding emergency room because of urinary tract infection. The patient states that she had been experiencing UTI symptoms for the last month prior to admission. At the freestanding emergency room, the patient underwent a CT of the abdomen and pelvis without contrast, which was unremarkable. However, the patient had undergone urine culture on August 21, 2019, at [facility] that revealed multidrug resistant ESBL E coli bacterial species. The sensitivities in urine culture did reveal that the strain of E coli bacterial species was susceptible to meropenem. Thus, during this hospital, patient receive meropenem 250 mg every 6 hours, which she tolerated quite well. Her hospitalization was unremarkable. CONDITION ON DISCHARGE: Stable. The patient's white blood cell count on day of discharge was 7500 with 45% segmented neutrophils. On discharge, the patient's BUN and creatinine was 16 and 0.59 respectively. The patient remained afebrile during her entire hospitalization. Her vitals also stable during this hospitalization. CONDITION ON DISCHARGE: Stable. DISCHARGE MEDICATIONS: 1. Trulicity 1.5 mg subcutaneous weekly. 2. Atorvastatin 20 mg at bedtime. 3. Dicyclomine 10 mg t.i.d. 4. Bystolic 20 mg daily. 5. Pantoprazole 40 mg b.i.d. 6. Paroxetine 20 mg daily. 7. Pyridium 200 mg t.i.d. for two more days. 8. Promethazine 25 mg every 12 hours as needed for nausea and vomiting. 9. Carafate 1 g before every meal, at bedtime. 10. Topiramate 50 mg daily. FOLLOWUP INSTRUCTIONS: The patient instructed to follow up with her primary care physician, namely Dr. Love or myself Dr. Jon within three days. Prior to being discharged, the patient did have a repeat urinalysis and urine culture performed. The results of the urinalysis and urine culture will be reviewed with the patient on her followup visit within three days. Jin E Orahood, MD [facility]/ESPINOZAL /[id number] cc: Ugo Love MD MTDD
[2019-08-30 14:10] LABS: CLARITY,URINE CLEAR (CLEAR); COLOR,URINE YELLOW (YELLOW); LEUKOCYTE ESTERASE ,URINE NEGATIVE (NEGATIVE)
[2019-08-30 14:11] LABS: BILIRUBIN,URINE NEGATIVE (NEGATIVE); KETONES,URINE NEGATIVE (NEGATIVE); NITRITE,URINE NEGATIVE (NEGATIVE); PROTEIN,URINE DIPSTICK NEGATIVE (NEGATIVE); URINE UROBILINOGEN 0.2 mg/dL (0.2 - 1)
--- NOTE | 2019-08-30 14:15 | NUR ---
REMOVED PATIENTS IV. CATHETER TIP INTACT AND PRESSURE DRESSING APPLIED.
--- NOTE | 2019-08-30 14:23 | NUR ---
PATIENT DISCHARGED FROM FACILITY. PATIENT GATHERED ALL PERSONAL BELONGINGS, DISCHARGE INSTRUCTIONS, AND FOLLOW UP INFORMATION. PATIENT LEFT UNIT IN WHEELCHAIR AND WENT HOME VIA PRIVATE AUTO. NO S/S OF DISTRESS WHEN LEAVING FACILITY.
[2019-08-30 14:37] LABS: BACTERIA,URINE RARE /HPF; EPITHELIAL CELLS,URINE FEW /LPF; RBC,URINE 0-5 /HPF (0-5); WBC,URINE (MAN) 0-5 /HPF (0-5)
[2019-08-31] MEDS ORDERED: NON-FORMULARY MEDICATION ([Trulicity] 1.5 MG) SC SCH (10:00)
== END 2019-08-30 14:23 | disposition home or self-care (01) | DRG 690 ==
LOC: MED/SURG2 16:55 → OBSVTOIN 08-26 12:34
PROVIDERS: ADMIT Internal Medicine; ATTEND Internal Medicine
DX: N39.0 Urinary tract infection, site not specified (principal); Z16.342 Resistance to multiple antimycobacterial drugs; B96.20 Unspecified Escherichia coli [E. coli] as the cause of diseases classified elsewhere; Z88.8 Allergy status to other drugs, medicaments and biological substances; K21.9 Gastro-esophageal reflux disease without esophagitis; E78.5 Hyperlipidemia, unspecified; E11.649 Type 2 diabetes mellitus with hypoglycemia without coma; I11.9 Hypertensive heart disease without heart failure
CPT/HCPCS: 36415; 80048; 80053; 81001; 82948; 85025; 87086; 96372; G0378; J2185; J7030; J7050

== ENCOUNTER 2019-11-21 19:44 | Emergency (ER) | payer BC ==
[~2019-11-21] VITALS: Ht 157.5 cm; Wt 68.9 kg
[~2019-11-21 19:44] MED LIST changes: +NITROFURANTOIN100 MG PO; +PHENAZOPYRIDIN100 MG PO; +PROMETHAZINE HC25 M1 PO; +SUCRALFATE1 GM PO
--- OUTSIDE RECORDS SUMMARY | 2019-11-21 19:48 | XMS REPORT ---
Author Author [facility] t Organization [facility] Address [address] [place] [address] Phone Unavailable Care Team Providers Care Boiler House Supervisor Name Role Phone UGO WASHBURN MD PCP BUD YEPEZ Attphys Unavailable Rich HREEDIA Attphys Unavailable Hector Barboza Attphys Kandi Hairston Attphys Matt [place] Attphys Arlen Yarbrough Attphys Yong Peraza Attphys Richy Hairston Attphys Mckenzie Rodriguez Attphys Payers Payer Name Policy Type Policy Number Effective Date Expiration Date [place] [facility] [id number] [id number] 2016 00:00:00 [facility] Problems Condition Name Condition Details Condition Category Status Onset Date Resolution Date Last Treatment Date Treating Clinician Comments Source DX: H92.02=OTALGIA, LEFT EAR/R07.0=PAIN DX: H92.02=OTALGIA, LEFT EAR/R07.0=PAIN Active 2016 [facility] Active 2016 00:00:00 2016-07-17 08:32:00 [facility] E11.9 E11. 9 Active 11/28/2015 [facility] Active 2015-11-28 10:30:00 2015-11-28 12:35:00 [facility] M06.00 M06. 00 Active 09/26/2015 [facility] Active 2015-09-26 14:00:00 2015-09-26 15:10:00 [facility] Z12.31 - ENCNTR SCREEN MAMMOGRAM FOR MA Z12.31 - ENCNTR SCREEN MAMMOGRAM FOR MA Active 06/15/2015 [facility] [place] [facility] Active 2015-06-15 00:01:00 2015-08-01 16:28:00 [facility] [place] BLE DX:DVT BLE DX:DVT Active 10/25/2014 [facility] Diagnosis Active 2014-10-25 00:00:00 2014-10-27 12:18:00 [facility] V76.12 - SCREEN MAMMOGRA V76. 12 - SCREEN MAMMOGRA Active 07/31/2012 [facility] [place] Diagnosis Active 2012-07-31 00:01:00 2014-02-15 03:44:00 [facility] [place] Bronchitis Bronchitis Problem Active C [facility] Final: Encounter for screening mammogram for malignant neoplasm of breast Final: Encounter for screening mammogram for malignant neoplasm of breast 11/28/2015 [facility] [place] Problem 2015-11-28 00:25:55 [facility] [place] 466.0 466. 0 Active [facility] Diagnosis Active 2014-07-19 10:39:00 [facility] J06 J06 Active [facility] Diagnosis Active 2015-04-11 12:16:00 [facility] E11.9/K76.0 E11. 9/K76.0 Active [facility] Diagnosis Active 2015-05-06 09:07:00 [place] Allergies, Adverse Reactions, Alerts Allergy Name Allergy Type Status Severity Reaction(s) Onset Date Inacti ve Date Treating Clinician Comments Source aspirin DA Active U 2019-01-19 00:00:00 [facility] aspirin DA Active U 2019-01-06 00:00:00 [facility] Aspirin Allergy to Substance Active Swelling. itching 4 00:00:00 [facility] aspirin DA Active U 2014-09-17 00:00:00 [facility] Social History Social Habit Start Date Stop Date Quantity Comments Source Social History 2015-11-26 04:59:00 2015-11-26 04:59:00 [facility] Medications Ordered Medication Name Filled Medication Name Start Date Stop Da te Current Medication? Ordering Clinician Indication Dosage Frequency Signature (SIG) Comments Components Source Atorvastatin Calcium (Lipitor) 20 Mg Tablet Atorvastat in Calcium (Lipitor) 20 Mg Tablet Yes 40 Daily [facility] Dicyclomine Hcl 20 Mg Tablet Dicyclomine Hcl 20 Mg Tablet Y es 10 Three Times A Day [facility] Nebivolol Hcl (Bystolic) 10 Mg Tablet Nebivolol Hcl (Bystolic) 10 M g Tablet Yes 20 Daily [facility] Pantoprazole Sodium (Protonix) 40 Mg Tablet. Pantopr azole Sodium (Protonix) 40 Mg Tablet. Yes 40 Twice A Day [facility] Paroxetine Hcl 20 Mg Tablet Paroxetine Hcl 20 Mg Tablet Yes 20 Daily [facility] Phenazopyridine Hcl 100 Mg Tablet Phenazopyridine Hcl 100 Mg Tablet Yes 200 Every 8 Hours [facility] Promethazine Hcl 25 Mg Tablet Promethazine Hcl 25 Mg Tablet Yes 25 Every 12 Hours [facility] Sucralfate 1 Gm Tablet Sucralfate 1 Gm Tablet Yes 1 Before Meals And At Bedtime [facility] Topiramate 100 Mg Tablet Topiramate 100 Mg Tablet Yes 50 Daily [facility] Trulicity Trulicity Yes 1.5 Weekly [facility] Nitrofurantoin Macrocrystal (Nitrofurantoin) 100 Mg Ca psule, 100 Mg Oral Nitrofurantoin Macrocrystal (Nitrofurantoin) 100 Mg Capsule, 100 Mg Oral 2019-08-30 00:00:00 No 100 Every 12 Hours [facility] Omeprazole 40 Mg Capsule., 40 Mg Oral Omeprazole 40 Mg Cap terry., 40 Mg Oral 2019-08-26 00:00:00 No 40 Twice A Day [facility] Montelukast Sodium 10 Mg Tablet, 10 Mg Oral Montelukas t Sodium 10 Mg Tablet, 10 Mg Oral 2019-08-07 00:00:00 No 10 Bedtime [facility] Metformin Hcl 500 Mg Tablet, 500 Mg Oral Metformin Hcl 500 Mg Tablet, 500 Mg Oral 2018-07-15 00:00:00 No 500 Twice A Day [facility] Atorvastatin Calcium (Lipitor) 40 Mg Tablet, 40 Mg Ora l Atorvastatin Calcium (Lipitor) 40 Mg Tablet, 40 Mg Oral 2017-06-07 00:00:00 No 4 0 Daily [facility] Esomeprazole Magnesium (Nexium) 40 Mg Capsule., 40 M g Oral Esomeprazole Magnesium (Nexium) 40 Mg Capsule., 40 Mg Oral 2017-06-07 00:00:00 No 40 Daily [facility] Nexium , Oral Nexium , Oral 2017-02-25 00:00:00 No Daily [facility] Paroxetine Hcl (Paxil) 40 Mg Tablet, 40 Mg Oral Paroxe palmira Hcl (Paxil) 40 Mg Tablet, 40 Mg Oral 2014-08-04 00:00:00 No 40 Daily [facility] Fluticasone Propionate (Flonase) 16 Gm [place].susp, 2 S prays Nasal Fluticasone Propionate (Flonase) 16 Gm [place].susp, 2 Sprays Nasal 2014-04-26 00:00:00 No 2 Twice A Day [facility] Omeprazole 40 Mg Capsule., 40 Mg Oral Omeprazole 40 Mg Cap terry., 40 Mg Oral 2014-04-26 00:00:00 No 40 Daily [facility] Paroxetine Hcl 10 Mg Tablet, 10 Mg Oral Paroxetine Hcl 10 Mg Tablet, 10 Mg Oral 2014-04-26 00:00:00 No 10 Daily [facility] Albuterol Sulfate (Albuterol Sulfate Hfa) 8.5 Gm Hfa.a er.ad, 2 Inh Nebullizer Albuterol Sulfate (Albuterol Sulfate Hfa) 8.5 Gm Hfa.aer.ad, 2 Inh Nebullizer 2013-07-16 00:00:00 No 2 Every 6 Hours as nee ded [facility] Azithromycin (Z-Leland) 250 Mg Tablet, Azithromycin (Z-Leland) 250 Mg Tablet, 2013-07-16 00:00:00 No [facility] Cefuroxime Axetil (Cefuroxime) 500 Mg Tablet, 500 Mg O ral Cefuroxime Axetil (Cefuroxime) 500 Mg Tablet, 500 Mg Oral 2013-07-16 00:00:00 No 500 Twice A Day [facility] D-Methorphan Hb/Prometh Hcl (Promethazine-Dm Syrup) 11 8 Ml Syrup, D-Methorphan Hb/Prometh Hcl (Promethazine-Dm Syrup) 118 Ml Syrup, 2013-07-16 00: 00:00 No [facility] Guaifenesin/Dextromethorphan (Mucinex Fa st-Max Dm Max Liquid) 177 Ml Liquid, 1 Tab Oral Guaifenesin/Dextromethorphan (Mucinex Fa st-Max Dm Max Liquid) 177 Ml Liquid, 1 Tab Oral 2013-07-16 00:00:00 No 1 Twice A Day [facility] Procedures Procedure Date / Time Performed Performing Clinician Sour e EGD BIOPSY SINGLE/MULTIPLE 2019-08-12 00:00:00 BUD YEPEZ [facility] DILATE ESOPHAGUS 1/MULT PASS 2019-08-12 00:00:00 BUD YEPEZ [facility] Computed tomography of abdomen and pelvis with contrast 2019 00:00:00 BUD YEPEZ [facility] Encounters Start Date/Time End Date/Time Encounter Type Admission Type [facility] Care Department Encounter ID Source 2019-08-26 12:34:00 2019-08-30 14:23:00 Discharged Inpatient [facility] [id number] [facility] 2019-08-12 06:17:00 2019-08-12 06:17:00 Registered Surgical Day Care [facility] [id number] [facility] 2019-08-07 14:26:00 2019-08-07 14:26:00 Registered Clinic BUD BRANCH [facility] [id number] [facility] 2017-10-21 10:41:00 2017-10-21 11:12:00 Departed Emergency Room [facility] [id number] [facility] - Patients [facility] 2017-09-01 10:20:00 2017-09-01 12:18:00 [facility]ed [facility] [id number] [facility] 2017-06-11 14:02:00 2017-06-11 14:02:00 Registered Surgical Day Care [facility] [id number] [facility] 2017-06-10 08:34:00 2017-06-10 08:34:00 Registered Clinic BUD KAUFFMAN [facility] [id number] [facility] 2017-05-11 16:53:00 2017-05-11 21:49:00 Departed Emergency Room ER SONIYA HEREDIA [facility] [id number] [facility] 2017-02-25 14:40:00 2017-02-25 19:47:00 Departed Emergency Room [facility] [id number] [facility] 2016-07-16 19:03:00 2016-07-17 05:59:00 Outpatient [facility] [id number] [facility] 2016-07-16 13:03:00 2016-07-16 23:59:00 Outpatient [facility] [id number] 2015-11-28 17:34:00 2015-11-29 04:59:00 Outpatient [facility] [id number] [facility] 2015-11-28 12:34:00 2015-11-28 23:59:00 Outpatient Vital, Ka rla Kandi [facility]SE[facility] MHSE[facility] [id number] 2015-11-25 14:10:00 2015-11-26 04:59:00 Outpt Diag Services [facility] [place] [id number] [facility] [place] 2015-11-25 09:10:00 2015-11-25 23:59:00 Outpatient Chandana Cory reynosoa MHHOIP MHHOIP [id number] 2015-09-26 20:02:00 2015-09-27 04:59:00 Outpatient [facility] [id number] [facility] 2015-09-26 15:02:00 2015-09-26 23:59:00 Outpatient Jama Yarbrough Isaacjavad MHSE[facility] MHSE[facility] [id number] 2015-05-06 15:06:00 2015-05-07 05:59:00 Outpatient [facility] [id number] [facility] 2015-05-06 09:06:00 2015-05-06 23:59:00 Outpatient Vital, Ka rla Kandi [facility]SE[facility] [id number] 2014-10-27 17:17:00 2014-10-28 04:59:00 Outpatient [facility] [id number] [facility] 2014-10-27 12:17:00 2014-10-27 23:59:00 Outpatient Phu Peraza [facility]IEALT MH[facility] [id number] 2014-07-19 16:38:00 2014-07-20 05:59:00 [id number] 2014-07-19 10:38:00 2014-07-19 23:59:00 Outpatient Abel Hairston [facility]IEALT MH[facility] [id number] 2014-03-18 20:49:00 2014-03-19 04:59:00 Outpt Diag Services [facility]ALT [facility] [place] [id number] [facility] [place] 2014-03-18 15:49:00 2014-03-18 23:59:00 Outpatient Phu Peraza ALESSANDRO IEINRich [id number] 2013-09-23 12:49:00 2013-09-24 04:59:00 Outpt Diag Services SUZEALT [facility] [place] [id number] NAMITA Lee 2013-09-23 07:49:00 2013-09-23 23:59:00 Outpatient Darlin Rodriguez ALESSANDRO IEALT [id number] Results Test Description Test Time Test Comments Results Result Comments Source Urine Color 2019-08-30 14:11:00 Test Item Urine Color (test code = 5778-6) YELLOW YELLOW [facility] Twxxkos1336-92-61 14:11:00* Test Item Value Reference Range Interpretation Comments Urine Clarity (test code = 03492-3) CLEAR CLEAR [facility] HospitalU[facility] Specific Ouupxuq0212-16-02 14:11:00 * Test Item Value Reference Range Interpretation Comments Urine Specific [place] (test code = 5811-5) 1.010 1.010-1.02 5 [facility] aW4829-19-10 14:11:00* Test Item Value Reference Range Interpretation Comments Urine pH (test code = 82408-7) 7 5-7 [facility] Leukocyte Rsqxpsqt7753-78-32 14:11:00* Test Item Value Reference Range Interpretation Comments Urine Leukocyte Esterase (test code = 5799-2) NEGATIVE NEGATIVE [facility] Hospital[facility] Ibifhtp6789-91-47 14:11:00* Test Item Value Reference Range Interpretation Comments Urine Nitrite (test code = 57399-8) NEGATIVE NEGATIVE [facility] Hospital[facility] Jegeynf8766-29-06 14:11:00* Test Item Value Reference Range Interpretation Comments Urine Protein (test code = 5804-0) NEGATIVE NEGATIVE [facility] Hospital[facility] Glucose (UA)2019-08-30 14:11:00* Test Item Value Reference Range Interpretation Comments Urine Glucose (UA) (test code = 2349-9) NEGATIVE NEGATIVE [facility] HospitalUrine Hztgdwp3877-50-50 14:11:00* Test Item Value Reference Range Interpretation Comments Urine Ketones (test code = 74495-6) NEGATIVE NEGATIVE [facility] Hospital[facility] Saqirfgulvkp5869-20-51 14:11:00* Test Item Value Reference Range Interpretation Comments Urine Urobilinogen (test code = 30606-4) 0.2 0.2-1 [facility] HospitalU[facility] Agcylzbob6600-57-81 14:11:00* Test Item Value Reference Range Interpretation Comments Urine Bilirubin (test code = 1978-6) NEGATIVE NEGATIVE [facility] HospitalUrine Sbtsv1450-14-79 14:11:00* Test Item Value Reference Range Interpretation Comments Urine Blood (test code = 94067-4) NEGATIVE NEGATIVE [facility] HospitalBedside Dzhqbae1784-80-07 11:24:00* Test Item Value Reference Range Interpretation Comments Bedside Glucose (test code = 72841-7) 98 70-120 Meter ID: [id number] [facility] 2019-08-30 06:58:00* Test Item Value Reference Range Interpretation Comments Sodium Level (test code = 2951-2) 142 136-145 [facility] HospitalPotassium Yzdll1347-24-30 06:58:00* Test Item Value Reference Range Interpretation Comments Potassium Level (test code = 2823-3) 3.9 3.5-5.1 [facility] HospitalChloride Kfoxi3060-91-28 06:58:00* Test Item Value Reference Range Interpretation Comments Chloride Level (test code = 2075-0) 113 98-107 H [facility] HospitalCarbon Dioxide Pdyhd0117-73-65 06:58:00* Test Item Value Reference Range Interpretation Comments Carbon Dioxide Level (test code = 2028-9) 24 22-29 [facility] HospitalAnion Qwa6736-96-85 06:58:00* Test Item Value Reference Range Interpretation Comments Anion Gap (test code = 28853-4) 8.9 8-16 [facility] HospitalBlood Urea Ubyccqgw6668-40-91 06:58:00* Test Item Value Reference Range Interpretation Comments Blood Urea Nitrogen (test code = 3094-0) 16 7-26 [facility] HospitalCreatinine2020-03-08 06:58:00* Test Item Value Reference Range Interpretation Comments Creatinine (test code = 2160-0) 0.59 0.57-1.11 [facility] HospitalBUN/Creatinine Pglks7821-93-11 06:58:00* Test Item Value Reference Range Interpretation Comments BUN/Creatinine Ratio (test code = 3097-3) 27 6-25 H [facility] HospitalEstimat Glomerular Filtration Rate 2019-08-30 06:58:00* Test Item Value Reference Range Interpretation Comments Estimat Glomerular Filtration Rate (test code = 365055910) > 60 >60 Ranges were taken from the National Kidney Disease Education Program and the [facility] literature.Reference ranges:60 or greater: Rvprdj96-16 ( for 3 consecutive months): Chronic kidney disease 15 or less: Kidney failureHouston Methodist Baytown HospitalGlucose Mcqpa4777-77-89 06:58:00* Test Item Value Reference Range Interpretation Comments Glucose Level (test code = MMI0797) 87 74-118 [facility] HospitalCalcium Xwuia6712-47-14 06:58:00* Test Item Value Reference Range Interpretation Comments Calcium Level (test code = 05495-8) 8.8 8.4-10.2 [facility] HospitalTotal Pgesxlpur5835-62-87 06:58:00* Test Item Value Reference Range Interpretation Comments Total Bilirubin (test code = 1975-2) 0.3 0.2-1.2 [facility] HospitalAspartate Amino Transf (AST/SGOT) 2019-08-30 06:58:00* Test Item Value Reference Range Interpretation Comments Aspartate Amino Transf (AST/SGOT) (test code = Aspartate Amino Transf (AST/SGOT)) 18 5-34 [facility] HospitalAlanine Aminotransferase (ALT/SGPT) 2019-08-30 06:58:00* Test Item Value Reference Range Interpretation Comments Alanine Aminotransferase (ALT/SGPT) (test code = 1742-6) 27 0-55 [facility] HospitalTotal Qoivrcd9089-73-60 06:58:00* Test Item Value Reference Range Interpretation Comments Total Protein (test code = 2885-2) 6.3 6.5-8.1 L [facility] HospitalAlbumin2020-03-08 06:58:00* Test Item Value Reference Range Interpretation Comments Albumin (test code = 1751-7) 3.2 3.5-5.0 L [facility] HospitalGlobulin2020-03-08 06:58:00* Test Item Value Reference Range Interpretation Comments Globulin (test code = 52811-4) 3.1 2.3-3.5 [facility] HospitalAlbumin/Globulin Johbo7830-34-92 06:58:00 * Test Item Value Reference Range Interpretation Comments Albumin/Globulin Ratio (test code = 1759-0) 1.0 0.8-2.0 [facility] HospitalAlkaline Mhconivjhfg1071-82-78 06:58:00* Test Item Value Reference Range Interpretation Comments Alkaline Phosphatase (test code = 6768-6) 106 40-150 [facility] HospitalWhite Blood Lwhop4529-96-53 06:23:00* Test Item Value Reference Range Interpretation Comments White Blood Count (test code = 6690-2) 7.51 4.8-10.8 [facility] HospitalRed Blood Tzvdz9933-05-08 06:23:00* Test Item Value Reference Range Interpretation Comments Red Blood Count (test code = 789-8) 3.91 3.6-5.1 [facility] HospitalHemoglobin2020-03-08 06:23:00* Test Item Value Reference Range Interpretation Comments Hemoglobin (test code = 01896-5) 12.5 12.0-16.0 [facility] HospitalHematocrit2020-03-08 06:23:00* Test Item Value Reference Range Interpretation Comments Hematocrit (test code = 4544-3) 37.9 34.2-44.1 [facility] HospitalMean Corpuscular Vqrpzn7767-91-93 06:23:00* Test Item Value Reference Range Interpretation Comments Mean Corpuscular Volume (test code = 787-2) 96.9 81-99 [facility] HospitalMean Corpuscular Twcnrwedec3620-32-77 06:23:00* Test Item Value Reference Range Interpretation Comments Mean Corpuscular Hemoglobin (test code = 785-6) 32.0 28-32 [facility] HospitalMean Corpuscular Hemoglobin Concent 2019-08-30 06:23:00* Test Item Value Reference Range Interpretation Comments Mean Corpuscular Hemoglobin Concent (test code = 786-4) 33.0 31-35 [facility] HospitalRed Cell Distribution Ljbaf0619-59-55 06:23:00* Test Item Value Reference Range Interpretation Comments Red Cell Distribution Width (test code = 01054-5) 14.0 11.7 -14.4 [facility] HospitalPlatelet Ukcur8522-14-85 06:23:00* Test Item Value Reference Range Interpretation Comments Platelet Count (test code = 777-3) 354 140-360 [facility] HospitalNeutrophils (%) (Auto)2019-08-30 06:23:00 * Test Item Value Reference Range Interpretation Comments Neutrophils (%) (Auto) (test code = 10397-3) 45.2 38.7-80.0 [facility] HospitalLymphocytes (%) (Auto)2019-08-30 06:23:00 * Test Item Value Reference Range Interpretation Comments Lymphocytes (%) (Auto) (test code = 736-9) 45.3 18.0-39.1 H [facility] HospitalMonocytes (%) (Auto)2019-08-30 06:23:00* Test Item Value Reference Range Interpretation Comments Monocytes (%) (Auto) (test code = 5905-5) 7.5 4.4-11.3 [facility] HospitalEosinophils (%) (Auto)2019-08-30 06:23:00 * Test Item Value Reference Range Interpretation Comments Eosinophils (%) (Auto) (test code = 713-8) 1.1 0.0-6.0 [facility] HospitalBasophils (%) (Auto)2019-08-30 06:23:00* Test Item Value Reference Range Interpretation Comments Basophils (%) (Auto) (test code = 706-2) 0.5 0.0-1.0 [facility] HospitalIM GRANULOCYTES %2019-08-30 06:23:00* Test Item Value Reference Range Interpretation Comments IM GRANULOCYTES % (test code = IM GRANULOCYTES %) 0.4 0.0- 1.0 [facility] HospitalNeutrophils # (Auto)2019-08-30 06:23:00* Test Item Value Reference Range Interpretation Comments Neutrophils # (Auto) (test code = 751-8) 3.4 2.1-6.9 [facility] HospitalLymphocytes # (Auto)2019-08-30 06:23:00* Test Item Value Reference Range Interpretation Comments Lymphocytes # (Auto) (test code = 44604-0) 3.4 1.0-3.2 H [facility] HospitalMonocytes # (Auto)2019-08-30 06:23:00* Test Item Value Reference Range Interpretation Comments Monocytes # (Auto) (test code = 742-7) 0.6 0.2-0.8 [facility] HospitalEosinophils # (Auto)2019-08-30 06:23:00* Test Item Value Reference Range Interpretation Comments Eosinophils # (Auto) (test code = 711-2) 0.1 0.0-0.4 [facility] HospitalBasophils # (Auto)2019-08-30 06:23:00* Test Item Value Reference Range Interpretation Comments Basophils # (Auto) (test code = 704-7) 0.0 0.0-0.1 [facility] HospitalAbsolute Immature Granulocyte (auto 2019-08-30 06:23:00* Test Item Value Reference Range Interpretation Comments Absolute Immature Granulocyte (auto (maggie t code = Absolute Immature Granulocyte (auto) 0.03 0-0.1 [facility] HospitalCT ABDOMEN/PELVIS X4603-16-13 17:55:00 [place] [address] Patient Name: HANNY FITZPATRICK MR #: [id number] : 1955 [facility] 64[id number] Req #: [id number] Adm Physician: Ordered by: BUD YEPEZ MD Report #: [id number] Location: CT Room/Bed: Procedure: 0214-[address]/CT ABDOMEN/PELVIS W Exam Date: 08/07/19 Exam Ti me: 1715 REPORT STATUS: Signed E XAM: CT Abdomen and Pelvis WITH contrast INDICATION: Pain. COMPARISON: . TECHNIQUE: Abdomen and pelvis were scanned utilizing a multidetector helical scanner from the lung base to the pubic symphysis after administration of IV contrast. Coronal and sagittal reformations were obtained. Routine prot ocol was performed. Scan was performed when during portal venous phase. IV CONTRAST: 100 cc Isovue-300 ORAL CONTRAST: Water RADIATION DOSE: Total DLP: 474.90 mGy*cm Estimated effect lucy dose: (DLP x 0.015 x size factor) mSv COMPLICATIONS: None FINDINGS: LINES and TUBES: None. LOWER THORAX: There is bibasilar de pendent atelectasis. Tiny hiatal hernia. HEPATOBILIARY: No focal hepat ic lesions. No biliary ductal dilation. GALLBLADDER: No radio-opaque stone s or sludge. No wall thickening. SPLEEN: No splenomegaly. PANCREAS: No focal masses or ductal dilatation. ADRENALS: No adrenal nodules KIDNEYS/URETERS: Kidneys enhance symmetrically. No hydronephrosis. No cystic or solid mass lesions. No stones. GI TRACT: The stomach is nondistended which precludes evaluation. No abnormal distention, wall thickening, or evide nce of bowel obstruction. There are diverticula scattered throughout the colo n without evidence of diverticulitis. Appendix is normal. PELVIC ORGANS/ BLADDER: Unremarkable. LYMPH NODES: No lymphadenopathy. VESSELS: Unrem arkable. PERITONEUM / RETROPERITONEUM: No free air or fluid. BONES: Un remarkable. SOFT TISSUES: Unremarkable. IMPRESSION: 1. Colonic diverticulosis without acute diverticulitis. Signed by: Dr. Brandon Del Toro M.D. on 08/07/2019 6:02 PM Dictated By: MONTEZ DEL TORO MD, MD 01 Transcribed By: MARLEN on 08/07/191801 COPY TO: BUD YEPEZ MD GLUBED 2019-01-20 11:57:00* Test Item Value Reference Range Interpretation Comments GLUBED (test code = GLUBED) 90 mg/dL 74-106 N Performed by certified robotic machine operator at [facility] L-SPINE W WO [id number] 11:51:00 FAX: Ugo Ballesteros MD [phone] [place]: St: ADM Name: HANNY SMITH [facility] : [birth year] Age/S: 63/F [address] [facility] Unit #: [id number] Loc: V.8 [place] [address] Phys: Ugo Washburn MD Acct: [id number] Dis Date: Status: ADM IN PHONE #: [phone] Exam Date: 01/20/2019924 FAX #: [phone] Reason: Left leg weakness EXAMS: CPT CODE: [id number] MRI L-SPINE W WO CON 50843 HISTORY: Left leg weakness. COMPARISON: None available. MRI lumbar spine within without contrast: Conus terminating at T12-L1 level without compression, syrinx or myelomalacia. 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 No enhancement of the conus or the Tarlov cyst after gadolinium. No leptomeningeal enhancement noted either. Vertebral body he ights are maintained. Bone marrow signal is normal. No abnormal enhancemen t of the vertebral bone marrow either. Disc spaces are preserved. No disc space enhancement. No prevertebral soft tissue swelling or enhancement. At T12-L1 level no disc herniation, canal or foraminal stenosis is noted. At L1-L2 level left lateral disc bulge but no canal or foraminal stenosis. At L2-L3 level no disc herniation, canal or foraminal stenosis. At L3-L4 level no disc herniation, canal or foraminal stenosis is noted. At L4-L5 level 3 mm posterior central and bilateral lateral disc protrusion. Mild facet hypertrophy. M ild canal and mild foraminal stenosis. No contact with the nerve roots. Co rrelate with radicular symptoms. At L5-S1 level 3.6 [address] centr al disc osteophyte effaces the thecal sac. No canal or foraminal stenosis is noted. IMPRESSION: No abnormal enhancement of the conus or the leptomeninges. No abnormal vertebral bone marrow enh ancement. Vertebral body heights are maintained and the bone marrow sign al is normal. At L4-L5 level 3 mm posterior central and bilate ral lateral disc protrusion. Mild facet hypertrophy. Mild canal and mild foraminal stenosis. No contact with the nerve roots. Correlate with rad icular symptoms. PAGE 1 Signed Report (CONTINUED) FAX: Ugo Ballesteros MD [phone] [facility] s: B St: ADM Name: HANNY FITZPATRICK [facility] : 1955 Age/S: 63/F [address] [facility] Unit #: [id number] Loc: V.8 [place] [address] Ph ys: Ugo Washburn MD Acct: [id number] Dis Date: Status: ADM IN PHONE #: [phone] Exam Date: 01/20/2019 09 FAX #: [phone] Reason: Left leg weakness EXAMS: CPT CODE: [id number] MRI L-SPINE W WO CON 16829 <Continued> At L5-S1 level 3.6 cm central disc osteophyte effaces the thecal sac. No canal or foraminal stenosis is noted. Correlate with radicular symptoms. at 1151 Reported and signed by: Hu German M.D. CC: Ugo Washburn Technologist: Carri Baez)(MR) Trnscrd Date/Time/By: 01/20/2019 (2296) : By: [email or web address] Orig Print D/T: S: 01/20/2019 (4338) PAGE 2 Signed Report - MRI BRAIN W WO [id number] 09:44:00 FAX: Ugo Ballesteros MD [phone] [place]: St: ADM Name: HANNY SMITH [facility] : [birth year] Age/S: 63/F [address] [facility] Unit #: [id number] Loc: V2057 [place] [address] Phys: Ugo Washburn MD Acct: [id number] Dis Date: Status: ADM IN PHONE #: [phone] Exam Date: 01/20/2019 09 FAX #: [phone] Reason: Left leg weakness EXAMS: CPT CODE: [id number] MRI BRAIN W WO CONT 00076 HISTORY: Left leg weakness. COMPARISON: Head CT from previous day. MRI brain with and without contrast: No acute territorial vascular or acute lacunar i nfarction. No MR evidence for hemorrhage. No extra-axial fluid collections . Minimal periventricular white matter ischemic change. No herniation, hydrocephalus or midline shift. Fourth ventricle is midline. The expected flow-voids are noted within the major intracranial vasculature. VII and VIII nerve complex are symmetrical and normal mastoid air cells a re clear. Sinuses demonstrated partial opacification of the posterior righ t ethmoid air cells. Intraorbital contents are unremarkable. Midbrain, brianna and medulla are without mass effect. No cerebellar ectopia. Pituitary gland, optic chiasm and corpus callosum are normal. Clivus with normal marrow signal. Following gadolinium no abnormal enhancing masses or lesions or meningeal enhancement is noted. IMPRESSION: No acute territorial vascular or acute lacunar infarction. No abnormal enhancing masses or lesions. No herniation, hydrocephalus or midline shift. at 0991 Reported and signed by: Hu German M.D. CC: Ugo Washburn Technologist: Carri Melendez(R)(MR) Trnscrd Date/Time/By: 01/20/2019 (0944) : By: [email or web address] Orig Print D/T: S: 01/20/2019 (0931) PAGE 1 Signed Report [id number] 07:22:00* Test Item Value Reference Range Interpretation Comments GLUBED (test code = GLUBED) 89 mg/dL 74-106 N Performed by certified robotic machine operator at [facility] [id number] 05:40:00* Test Item Value Reference Range Interpretation Comments GLUBED (test code = GLUBED) 93 mg/dL 74-106 N Performed by certified robotic machine operator at [facility] [id number] 23:06:00* Test Item Value Reference Range Interpretation Comments GLUBED (test code = GLUBED) 82 mg/dL 74-106 N Performed by certified robotic machine operator at [facility] [id number] 21:52:00* Test Item Value Reference Range Interpretation Comments GLUBED (test code = GLUBED) 240 mg/dL 74-106 H Performed by certified robotic machine operator at [facility] - XR CHEST 1 [id number] 14:58:00 FAX: Ugo Ballesteros MD [phone] [place]: B St: REG FAX: Angel Olea DO Name: HANNY FITZPATRICK : 1955 Age/S: 63/F [address] [facility] Unit #: [id number] Loc: [place] [address] Phys: Angel Olea DO Acct: [id number] Dis Date: Status: REG ER PHONE #: [phone] Exam Date: 01/19/2019 7490 FAX #: [phone] Reason: CHEST PAIN EXAMS: CPT CODE: [id number] XR CHEST 1 V 84313 REASON FOR EXAM: CHEST PAIN EXAM ORDER DATE: 01/19/2019 12:39 PM Ordering Tamanna: Angel Olea DO PROCEDURE: - XR CHEST 1 V COMPARISON: 01/06/2019 FINDINGS: Portable AP frontal view of the chest obtained at 2:34 PM shows clear lungs without evidence of consolidation. There is no evidence of effusion. The heart size is within normal limits. Pulmonary vasculatures are unremarkable. IMPRESSION: No active disease. at 5106 Reported and signed by: Surjit Moran M.D. CC: Ugo Washburn; Angel Olea DO Technologist: DAYNA CARTWRIGHT(R) Trnscrd Date/Time/By: 01/19/2019 (1365) : By: SmoothL Orig Print D/T: S: 01/19/2019 (0233) PAGE 1 Signed Report BASIC METABOLIC [id number] 14:19:00* Test Item Value Reference Range Interpretation Comments SODIUM (test code = NA) 139 mmol/L 136-145 N POTASSIUM (test code = K) 3.6 mmol/L 3.5-5.1 N CHLORIDE (test code = CL) 106.0 mmol/L 98-107 N CARBON DIOXIDE (test code = CO2) 27.0 mmol/L 21-32 N ANION GAP (test code = GAP) 9.6 10-20 L GLUCOSE (test code = GLU) 100 mg/dL 74-106 N BLOOD UREA NITROGEN (test code = BUN) 12 mg/dL 7-18 N GLOMERULAR FILTRATION RATE (test code = GFR) > 60 mL/min >=60 Estimated GFR by using Modified MDRD formula.Chronic kidney disease is defined as either kidney damageor GFR <60 mL/min/1.73 m2 for >3 months. CREATININE (test code = CREAT) 0.60 mg/dL 0.55-1.02 N Note change in reference range due to change in reagent. BUN/CREATININE RATIO (test code = BUN/CREA) 20.0 10-20 N CALCIUM (test code = CA) 9.0 mg/dL 8.5-10.1 N [id number] 14:19:00* Test Item Value Reference Range Interpretation Comments TROPONIN-I (test code = TROPI) <0.015 ng/mL 0-0.045 N BASIC METABOLIC [id number] 14:12:00* Test Item Value Reference Range Interpretation Comments SODIUM (test code = NA) 139 mmol/L 136-145 N POTASSIUM (test code = K) 3.6 mmol/L 3.5-5.1 N CHLORIDE (test code = CL) 106.0 mmol/L 98-107 N CARBON DIOXIDE (test code = CO2) mmol/L 21-32 ANION GAP (test code = GAP) 10-20 GLUCOSE (test code = GLU) mg/dL 74-106 BLOOD UREA NITROGEN (test code = BUN) mg/dL 7-18 GLOMERULAR FILTRATION RATE (test code = GFR) mL/min >=60 CREATININE (test code = CREAT) mg/dL 0.55-1.02 BUN/CREATININE RATIO (test code = BUN/CREA) 10-20 CALCIUM (test code = CA) mg/dL 8.5-10.1 [id number] 14:12:00* Test Item Value Reference Range Interpretation Comments TROPONIN-I (test code = TROPI) ng/mL 0-0.045 CBC W/O [id number] 13:53:00* Test Item Value Reference Range Interpretation Comments WHITE BLOOD CELL (test code = WBC) 12.0 K/mm3 4.5-12.5 N RED BLOOD CELL (test code = RBC) 4.23 mill/mm3 3.7-5.2 N HEMOGLOBIN (test code = HGB) 12.2 gram/dL 11.5-15.5 N HEMATOCRIT (test code = HCT) 38.9 % 36.0-46.0 N MEAN CELL VOLUME (test code = MCV) 92.0 fL 80-98 N MEAN CELL HGB (test code = MCH) 28.8 picogram 27.0-33.0 N MEAN CELL HGB CONCETRATION (test code = MCHC) 31.4 gram/dL 33.0-36. 0 L RED CELL DISTRIBUTION WIDTH (test code = RDW) 15.8 % 11.6-16. 2 N PLATELET COUNT (test code = PLT) 361 K/mm3 150-450 N MEAN PLATELET VOLUME (test code = MPV) 10.1 fL 6.7-11.0 N CBC W/O [id number] 13:50:00* Test Item Value Reference Range Interpretation Comments WHITE BLOOD CELL (test code = WBC) K/mm3 4.5-12.5 RED BLOOD CELL (test code = RBC) mill/mm3 3.7-5.2 HEMOGLOBIN (test code = HGB) 12.2 gram/dL 11.5-15.5 N HEMATOCRIT (test code = HCT) 38.9 % 36.0-46.0 N MEAN CELL VOLUME (test code = MCV) fL 80-98 MEAN CELL HGB (test code = MCH) picogram 27.0-33.0 MEAN CELL HGB CONCETRATION (test code = MCHC) gram/dL 33.0-36. 0 RED CELL DISTRIBUTION WIDTH (test code = RDW) % 11.6-16. 2 PLATELET COUNT (test code = PLT) K/mm3 150-450 MEAN PLATELET VOLUME (test code = MPV) fL 6.7-11.0 - CT HEAD/BRAIN W/O [id number] 13:33:00 Name: HANNY FITZPATRICK [facility] : 1955 Age/S: 63 / F [address] Unit #: [id number] Loc: [place] [address] Phys: Angel Olea DO Acct: [id number] Dis Date: Status: REG ER PHONE #: [phone] Exam Date: 01/19/2019 1323 FAX #: [phone] Reason: left lower leg numbness/headache EXAMS: CPT CODE: [id number] CT HEAD/BRAIN W/O CONT 62251 HISTORY: Left leg numbness. COMPARISON: January 06, 2019. CT brain without contrast: Automated exposure control. No acute intracranial bleeds or extra-axial collections are noted. No acute territorial vascular infarction is noted. The sulci, gyri, ventricles and subarachnoid spaces and the basilar cisterns are normal for patient's age. No herniation or hydrocephalus or midline shift is noted. Mild periventricular ischemic gliosis is noted. Age-appropriate atrophy is noted as well. Portions of the visualized paranasal sinuses are normal. No obvious bony calvarial defect is noted. IMPRESSION: No acute intracranial bleeds or extra-axial collections. No acute territorial vascular infarction. No herniation or hy drocephalus or midline shift. Chronic white matter ischemic d isease and atrophy . at 1333 Reported and cabrera d by: Hu German M.D. CC: Celso Washburn Adam T DO Technologist:Cheli YarbroughRT(R),CT; Kierra CTDI: DLP: Trnscb Date/Time: 01/19/2019 (8203) [email or web address] Orig Print D/T: S: 01/19/2019 (3921) PAGE 1 Signed Report BASIC METABOLIC [id number] 18:49:00* Test Item Value Reference Range Interpretation Comments SODIUM (test code = NA) 139 mmol/L 136-145 N POTASSIUM (test code = K) 3.9 mmol/L 3.5-5.1 N CHLORIDE (test code = CL) 106.0 mmol/L 98-107 N CARBON DIOXIDE (test code = CO2) 25.0 mmol/L 21-32 N ANION GAP (test code = GAP) 11.9 10-20 N GLUCOSE (test code = GLU) 95 mg/dL 74-106 N BLOOD UREA NITROGEN (test code = BUN) 14 mg/dL 7-18 N GLOMERULAR FILTRATION RATE (test code = GFR) > 60 mL/min >=60 Estimated GFR by using Modified MDRD formula.Chronic kidney disease is defined as either kidney damageor GFR <60 mL/min/1.73 m2 for >3 months. CREATININE (test code = CREAT) 0.70 mg/dL 0.55-1.02 N Note change in reference range due to change in reagent. BUN/CREATININE RATIO (test code = BUN/CREA) 19.0 10-20 N CALCIUM (test code = CA) 9.5 mg/dL 8.5-10.1 N HEPATIC FUNCTION [id number] 18:49:00* Test Item Value Reference Range Interpretation Comments TOTAL PROTEIN (test code = PROT) 8.2 gram/dL 6.4-8.2 N ALBUMIN (test code = ALB) 4.0 g/dL 3.4-5.0 N GLOBULIN (test code = GLOB) 4.2 gram/dL 2.7-4.2 N ALBUMIN/GLOBULIN RATIO (test code = A/G) 1.0 0.75-1.50 N BILIRUBIN TOTAL (test code = BILT) 0.30 mg/dL 0.0-1.0 N BILIRUBIN DIRECT (test code = BILD) 0.12 mg/dL 0.0-0.20 N SGOT/AST (test code = AST) 19 IUnit/L 15-37 N SGPT/ALT (test code = ALT) 35 IUnit/L 12-78 N ALKALINE PHOSPHATASE TOTAL (test code = ALKP) 140 IUnit/L 45-117 H Note change in reference range due to change in reagent. [id number] 18:49:00* Test Item Value Reference Range Interpretation Comments TROPONIN-I (test code = TROPI) <0.015 ng/mL 0-0.045 N - CT HEAD/BRAIN W/O [id number] 18:41:00 Name: HANNY FITZPATRICK [facility] : 1955 Age/S: 63 / F [address] Unit #: [id number] Loc: [place] [address] Phys: Dev Robertson MD Acct: [id number] Dis Date: Status: REG ER PHONE #: [phone] Exam Date: 01/06/2019 1800 FAX #: [phone] Reason: headache EXAMS: CPT CODE: [id number] CT HEAD/BRAIN W/O CONT 03669 HISTORY: headache TECHNIQUE: Noncontrast 2.[address] of the head. Examination acquired within 24 hours of arrival. Automated exposure control for dose reduction. COMPARISON: CT scan of the brain May 25, 2018 FINDINGS: No acute hemorrhage. No intracranial mass, mass effect, or midline shift. No CT evidence of acute infarct. Aguila-white matter differentiation is preserved. No hydrocephalus. No extra-axial fluid collection. Visualized paranasal sinuses are clear. Mastoid air cells and middle ear cavities are clear. Orbital contents are unremarkable. Calvarium and skull base are intact. IMPRESSION: Negative CT head. at 1841 Reported and signed by: Cisco Gresham MD CC: Dev Robertson MD; Ugo Washburn Technologist:Gracy Dolan RT(R) CTDI: DLP: Trnscb Date/Time: 01/06/2019 (1840) [email or web address] Orig Print D/T: S: 01/06/2019 (1843) PAGE 1 Signed Report BASIC METABOLIC [id number] 18:40:00* Test Item Value Reference Range Interpretation Comments SODIUM (test code = NA) 139 mmol/L 136-145 N POTASSIUM (test code = K) 3.9 mmol/L 3.5-5.1 N CHLORIDE (test code = CL) 106.0 mmol/L 98-107 N CARBON DIOXIDE (test code = CO2) mmol/L 21-32 ANION GAP (test code = GAP) 10-20 GLUCOSE (test code = GLU) mg/dL 74-106 BLOOD UREA NITROGEN (test code = BUN) mg/dL 7-18 GLOMERULAR FILTRATION RATE (test code = GFR) mL/min >=60 CREATININE (test code = CREAT) mg/dL 0.55-1.02 BUN/CREATININE RATIO (test code = BUN/CREA) 10-20 CALCIUM (test code = CA) mg/dL 8.5-10.1 HEPATIC FUNCTION [id number] 18:40:00* Test Item Value Reference Range Interpretation Comments TOTAL PROTEIN (test code = PROT) gram/dL 6.4-8.2 ALBUMIN (test code = ALB) g/dL 3.4-5.0 GLOBULIN (test code = GLOB) gram/dL 2.7-4.2 ALBUMIN/GLOBULIN RATIO (test code = A/G) 0.75-1.50 BILIRUBIN TOTAL (test code = BILT) mg/dL 0.0-1.0 BILIRUBIN DIRECT (test code = BILD) mg/dL 0.0-0.20 SGOT/AST (test code = AST) IUnit/L 15-37 SGPT/ALT (test code = ALT) IUnit/L 12-78 ALKALINE PHOSPHATASE TOTAL (test code = ALKP) IUnit/L 45-117 [id number] 18:40:00* Test Item Value Reference Range Interpretation Comments TROPONIN-I (test code = TROPI) ng/mL 0-0.045 CBC W/O [id number] 18:29:00* Test Item Value Reference Range Interpretation Comments WHITE BLOOD CELL (test code = WBC) 8.8 K/mm3 4.5-12.5 N RED BLOOD CELL (test code = RBC) 4.31 mill/mm3 3.7-5.2 N HEMOGLOBIN (test code = HGB) 12.3 gram/dL 11.5-15.5 N HEMATOCRIT (test code = HCT) 39.5 % 36.0-46.0 N MEAN CELL VOLUME (test code = MCV) 91.6 fL 80-98 N MEAN CELL HGB (test code = MCH) 28.5 picogram 27.0-33.0 N MEAN CELL HGB CONCETRATION (test code = MCHC) 31.1 gram/dL 33.0-36. 0 L RED CELL DISTRIBUTION WIDTH (test code = RDW) 15.4 % 11.6-16. 2 N PLATELET COUNT (test code = PLT) 365 K/mm3 150-450 N MEAN PLATELET VOLUME (test code = MPV) 10.0 fL 6.7-11.0 N CBC W/O [id number] 18:26:00* Test Item Value Reference Range Interpretation Comments WHITE BLOOD CELL (test code = WBC) K/mm3 4.5-12.5 RED BLOOD CELL (test code = RBC) mill/mm3 3.7-5.2 HEMOGLOBIN (test code = HGB) 12.3 gram/dL 11.5-15.5 N HEMATOCRIT (test code = HCT) 39.5 % 36.0-46.0 N MEAN CELL VOLUME (test code = MCV) fL 80-98 MEAN CELL HGB (test code = MCH) picogram 27.0-33.0 MEAN CELL HGB CONCETRATION (test code = MCHC) gram/dL 33.0-36. 0 RED CELL DISTRIBUTION WIDTH (test code = RDW) % 11.6-16. 2 PLATELET COUNT (test code = PLT) K/mm3 150-450 MEAN PLATELET VOLUME (test code = MPV) fL 6.7-11.0 - XR CHEST 1 [id number] 18:10:00 FAX: Dev Dominguez [phone] [place]: St: PRE FAX: Ugo Ballesteros MD [phone] Name: HANNY FITZPATRICK [facility] : 1955 Age/S: 63/F [address] [facility] Unit #: [id number] Loc: [place] [address] Phys: Dev Robertson MD Acct: [id number] Dis Date: Status: PRE ER PHONE #: [phone] Exam Date: 01/06/2019 1801 FAX #: [phone] Reason: CHEST PAIN EXAMS: CPT CODE: [id number] XR CHEST 1 V 31798 REASON FOR EXAM: CHEST PAIN Exam Order Date: 01/06/2019 5:51 PM Ordering M.D.: Dev Robertson MD PROCEDURE: - XR CHEST 1 V COMPARISON: None FINDINGS: The lungs are clear. There is no pleural effusion or pneumothorax. Pulmonary vascularity is within normal limits. Cardiomediastinal silhouette is normal in size for technique. The mediastinal contours are within normal limits. Musculoskeletal structures are within normal limits. The visualized upper abdomen is within normal limits. IMPRESSION: No acute cardiopulmonary process. at 1810 Reported and signed by: Cisco Gresham MD CC: Dev Robertson MD; Ugo Washburn Technologist: Triny Baez) Trnscrd Date/Time/By: 01/06/2019 (1809) : By: [email or web address] Orig Print D/T: S: 01/06/2019 (1812) PAGE 1 Signed Report Sodium Level 2017-09-01 11:38:00* Test Item Value Reference Range Interpretation Comments Sodium Level (test code = 2951-2) 142 136-145 [facility] [id number] 11:38:00* Test Item Value Reference Range Interpretation Comments Potassium Level (test code = 2823-3) 3.5 3.5-5.1 [facility] HospitalChloride [id number] 11:38:00* Test Item Value Reference Range Interpretation Comments Chloride Level (test code = 2075-0) 106 98-107 [facility] HospitalCarbon Dioxide [id number] 11:38:00* Test Item Value Reference Range Interpretation Comments Carbon Dioxide Level (test code = 2028-9) 26 22-29 [facility] HospitalAnion [id number] 11:38:00* Test Item Value Reference Range Interpretation Comments Anion Gap (test code = 87485-1) 13.5 8-16 [facility] HospitalBlood Urea [id number] 11:38:00* Test Item Value Reference Range Interpretation Comments Blood Urea Nitrogen (test code = 3094-0) 11 7-26 [facility] HospitalCreatinine2018-03-11 11:38:00* Test Item Value Reference Range Interpretation Comments Creatinine (test code = 2160-0) 0.66 0.57-1.11 [facility] HospitalBUN/Creatinine [id number] 11:38:00* Test Item Value Reference Range Interpretation Comments BUN/Creatinine Ratio (test code = 3097-3) 17 6-25 [facility] HospitalEstimat Glomerular Filtration Rate 2017-09-01 11:38:00* Test Item Value Reference Range Interpretation Comments Estimat Glomerular Filtration Rate (test code = 92337-7) 60- >60 Ranges were taken from the National Kidney Disease Education Program and the [facility] literature.Reference ranges:60 or greater: Jltpjh40-35 ( for 3 consecutive months): Chronic kidney disease 15 or less: Kidney failureHouston Methodist Baytown HospitalGlucose [id number] 11:38:00* Test Item Value Reference Range Interpretation Comments Glucose Level (test code = SAG4989) 79 74-118 [facility] HospitalCalcium [id number] 11:38:00* Test Item Value Reference Range Interpretation Comments Calcium Level (test code = 57029-7) 9.1 8.4-10.2 [facility] HospitalMagnesium Bfobh1947-07-79 11:38:00* Test Item Value Reference Range Interpretation Comments Magnesium Level (test code = 03717-9) 2.2 1.3-2.1 H [facility] HospitalTotal [id number] 11:38:00* Test Item Value Reference Range Interpretation Comments Total Bilirubin (test code = 1975-2) -0.3 0.2-1.2 [facility] HospitalAspartate Amino Transf (AST/SGOT) 2017-09-01 11:38:00* Test Item Value Reference Range Interpretation Comments Aspartate Amino Transf (AST/SGOT) (test code = Aspartate Amino Transf (AST/SGOT)) 15 5-34 [facility] HospitalAlanine Aminotransferase (ALT/SGPT) 2017-09-01 11:38:00* Test Item Value Reference Range Interpretation Comments Alanine Aminotransferase (ALT/SGPT) (test code = 1742-6) 26 0-55 [facility] HospitalTotal Ekmtllj9491-08-34 11:38:00* Test Item Value Reference Range Interpretation Comments Total Protein (test code = 2885-2) 7.6 6.5-8.1 [facility] HospitalAlbumin2018-03-11 11:38:00* Test Item Value Reference Range Interpretation Comments Albumin (test code = 1751-7) 4.1 3.5-5.0 [facility] HospitalGlobulin2018-03-11 11:38:00* Test Item Value Reference Range Interpretation Comments Globulin (test code = 84803-0) 3.5 2.3-3.5 [facility] HospitalAlbumin/Globulin [id number] 11:38:00 * Test Item Value Reference Range Interpretation Comments Albumin/Globulin Ratio (test code = 1759-0) 1.2 0.8-2.0 [facility] HospitalAlkaline Crbsliaxprr6906-07-70 11:38:00* Test Item Value Reference Range Interpretation Comments Alkaline Phosphatase (test code = 6768-6) 92 40-150 [facility] Campusodium Xdair3961-75-06 11:38:00* Test Item Value Reference Range Interpretation Comments Sodium Level (test code = 2951-2) 142 136-145 [facility] HospitalPotassium Swvqc6697-82-88 11:38:00* Test Item Value Reference Range Interpretation Comments Potassium Level (test code = 2823-3) 3.5 3.5-5.1 [facility] HospitalChloride Cpwfk3754-19-46 11:38:00* Test Item Value Reference Range Interpretation Comments Chloride Level (test code = 2075-0) 106 98-107 [facility] HospitalCarbon Dioxide Ytmuj2483-22-29 11:38:00* Test Item Value Reference Range Interpretation Comments Carbon Dioxide Level (test code = 2028-9) 26 22-29 [facility] HospitalAnion [id number] 11:38:00* Test Item Value Reference Range Interpretation Comments Anion Gap (test code = 36966-9) 13.5 8-16 [facility] HospitalBlood Urea Jjmfhqid4045-23-61 11:38:00* Test Item Value Reference Range Interpretation Comments Blood Urea Nitrogen (test code = 3094-0) 11 7-26 [facility] HospitalCreatinine2018-03-11 11:38:00* Test Item Value Reference Range Interpretation Comments Creatinine (test code = 2160-0) 0.66 0.57-1.11 [facility] HospitalBUN/Creatinine Gifer7201-98-20 11:38:00* Test Item Value Reference Range Interpretation Comments BUN/Creatinine Ratio (test code = 3097-3) 17 6-25 [facility] HospitalEstimat Glomerular Filtration Rate 2017-09-01 11:38:00* Test Item Value Reference Range Interpretation Comments Estimat Glomerular Filtration Rate (test code = 65345-2) 60- >60 Ranges were taken from the National Kidney Disease Education Program and the [facility] Foundation literature.Reference ranges:60 or greater: Cvzril51-04 ( for 3 consecutive months): Chronic kidney disease 15 or less: Kidney failureHouston Methodist Baytown HospitalGlucose Ghugu1731-86-51 11:38:00* Test Item Value Reference Range Interpretation Comments Glucose Level (test code = AZV5379) 79 74-118 [facility] HospitalCalcium Mchgl4835-52-20 11:38:00* Test Item Value Reference Range Interpretation Comments Calcium Level (test code = 02902-0) 9.1 8.4-10.2 [facility] HospitalMagnesium Pjicy4491-72-98 11:38:00* Test Item Value Reference Range Interpretation Comments Magnesium Level (test code = 07372-3) 2.2 1.3-2.1 H [facility] HospitalTotal Zfrqvgkiz6737-26-22 11:38:00* Test Item Value Reference Range Interpretation Comments Total Bilirubin (test code = 1975-2) -0.3 0.2-1.2 [facility] HospitalAspartate Amino Transf (AST/SGOT) 2017-09-01 11:38:00* Test Item Value Reference Range Interpretation Comments Aspartate Amino Transf (AST/SGOT) (test code = Aspartate Amino Transf (AST/SGOT)) 15 5-34 [facility] HospitalAlanine Aminotransferase (ALT/SGPT) 2017-09-01 11:38:00* Test Item Value Reference Range Interpretation Comments Alanine Aminotransferase (ALT/SGPT) (test code = 1742-6) 26 0-55 [facility] HospitalTotal Zfkperr1903-35-01 11:38:00* Test Item Value Reference Range Interpretation Comments Total Protein (test code = 2885-2) 7.6 6.5-8.1 [facility] HospitalAlbumin2018-03-11 11:38:00* Test Item Value Reference Range Interpretation Comments Albumin (test code = 1751-7) 4.1 3.5-5.0 [facility] HospitalGlobulin2018-03-11 11:38:00* Test Item Value Reference Range Interpretation Comments Globulin (test code = 91172-0) 3.5 2.3-3.5 [facility] HospitalAlbumin/Globulin Qflah0476-94-00 11:38:00 * Test Item Value Reference Range Interpretation Comments Albumin/Globulin Ratio (test code = 1759-0) 1.2 0.8-2.0 [facility] HospitalAlkaline Jakdlpqeozx2564-84-70 11:38:00* Test Item Value Reference Range Interpretation Comments Alkaline Phosphatase (test code = 6768-6) 92 40-150 [facility] HospitalUrine IVJ6025-40-33 11:31:00* Test Item Value Reference Range Interpretation Comments Urine WBC (test code = 5821-4) NONE 0-5 [facility] HospitalUrine RDE3333-47-84 11:31:00* Test Item Value Reference Range Interpretation Comments Urine RBC (test code = 38204-2) NONE 0-5 [facility] HospitalUrine Zsrowhiu5986-75-70 11:31:00* Test Item Value Reference Range Interpretation Comments Urine Bacteria (test code = 44909-9) NONE NONE [facility] HospitalUrine Epithelial Rdbmk3770-25-53 11:31:00 * Test Item Value Reference Range Interpretation Comments Urine Epithelial Cells (test code = 77830-7) FEW NONE [facility] HospitalUrine SYQ2036-35-08 11:31:00* Test Item Value Reference Range Interpretation Comments Urine WBC (test code = 5821-4) NONE 0-5 [facility] HospitalU[facility] GUH6102-95-49 11:31:00* Test Item Value Reference Range Interpretation Comments Urine RBC (test code = 08708-5) NONE 0-5 [facility] HospitalUrine Vfnhuymt0885-92-15 11:31:00* Test Item Value Reference Range Interpretation Comments Urine Bacteria (test code = 79003-5) NONE NONE [facility] HospitalUrine Epithelial Rbeow6828-42-94 11:31:00 * Test Item Value Reference Range Interpretation Comments Urine Epithelial Cells (test code = 04343-7) FEW NONE [facility] HospitalUrine Pacpt3818-91-37 11:17:00* Test Item Value Reference Range Interpretation Comments Urine Color (test code = 5778-6) YELLOW YELLOW [facility] HospitalU[facility] Bhfrcqc2635-96-47 11:17:00* Test Item Value Reference Range Interpretation Comments Urine Clarity (test code = 42153-2) CLEAR CLEAR [facility] HospitalUrine Specific Vhwxjkv9057-64-47 11:17:00 * Test Item Value Reference Range Interpretation Comments Urine Specific [place] (test code = 5811-5) 1.010 1.010-1.02 5 [facility] HospitalUrine zM2438-74-81 11:17:00* Test Item Value Reference Range Interpretation Comments Urine pH (test code = 21195-5) 8 5-7 H [facility] HospitalUrine Leukocyte Dzjpugvk4860-11-28 11:17:00* Test Item Value Reference Range Interpretation Comments Urine Leukocyte Esterase (test code = 5799-2) NEGATIVE NEGATIVE [facility] HospitalUrine Phyufuz7803-08-12 11:17:00* Test Item Value Reference Range Interpretation Comments Urine Nitrite (test code = 29653-1) NEGATIVE NEGATIVE [facility] HospitalUrine Ewfjhwa1702-93-77 11:17:00* Test Item Value Reference Range Interpretation Comments Urine Protein (test code = 5804-0) NEGATIVE NEGATIVE [facility] HospitalUrine Glucose (UA)2017-09-01 11:17:00* Test Item Value Reference Range Interpretation Comments Urine Glucose (UA) (test code = 2349-9) NEGATIVE NEGATIVE [facility] HospitalUrine Jedfamu6891-78-51 11:17:00* Test Item Value Reference Range Interpretation Comments Urine Ketones (test code = 05229-7) NEGATIVE NEGATIVE [facility] HospitalUrine Vukceilcwmdo9048-24-49 11:17:00* Test Item Value Reference Range Interpretation Comments Urine Urobilinogen (test code = 62123-7) 0.2 0.2-1 [facility] HospitalUrine Egrkkayuv4572-57-41 11:17:00* Test Item Value Reference Range Interpretation Comments Urine Bilirubin (test code = 1978-6) NEGATIVE NEGATIVE [facility] HospitalUrine Wrvbp5532-46-72 11:17:00* Test Item Value Reference Range Interpretation Comments Urine Blood (test code = 60088-9) NEGATIVE NEGATIVE [facility] HospitalUrine Uzebs2789-96-48 11:17:00* Test Item Value Reference Range Interpretation Comments Urine Color (test code = 5778-6) YELLOW YELLOW [facility] HospitalUrine Pvchcek8042-35-46 11:17:00* Test Item Value Reference Range Interpretation Comments Urine Clarity (test code = 40503-3) CLEAR CLEAR [facility] HospitalUrine Specific Otdvuca8924-07-50 11:17:00 * Test Item Value Reference Range Interpretation Comments Urine Specific [place] (test code = 5811-5) 1.010 1.010-1.02 5 [facility] HospitalUrine pQ3241-85-38 11:17:00* Test Item Value Reference Range Interpretation Comments Urine pH (test code = 55661-8) 8 5-7 H [facility] HospitalU[facility] Leukocyte Ajtrzalb0924-04-00 11:17:00* Test Item Value Reference Range Interpretation Comments Urine Leukocyte Esterase (test code = 5799-2) NEGATIVE NEGATIVE [facility] HospitalUrine Npwlgxl2057-06-67 11:17:00* Test Item Value Reference Range Interpretation Comments Urine Nitrite (test code = 85113-2) NEGATIVE NEGATIVE [facility] HospitalUrine Wbfvtql5100-25-10 11:17:00* Test Item Value Reference Range Interpretation Comments Urine Protein (test code = 5804-0) NEGATIVE NEGATIVE [facility] HospitalUrine Glucose (UA)2017-09-01 11:17:00* Test Item Value Reference Range Interpretation Comments Urine Glucose (UA) (test code = 2349-9) NEGATIVE NEGATIVE [facility] HospitalUrine Zlgphdy6039-09-41 11:17:00* Test Item Value Reference Range Interpretation Comments Urine Ketones (test code = 37715-6) NEGATIVE NEGATIVE [facility] HospitalUrine Lxiipbbovkqc9057-02-17 11:17:00* Test Item Value Reference Range Interpretation Comments Urine Urobilinogen (test code = 39551-2) 0.2 0.2-1 [facility] HospitalUrine Pfsvpyxsr9049-71-18 11:17:00* Test Item Value Reference Range Interpretation Comments Urine Bilirubin (test code = 1978-6) NEGATIVE NEGATIVE [facility] HospitalUrine Isaia1631-80-45 11:17:00* Test Item Value Reference Range Interpretation Comments Urine Blood (test code = 79917-0) NEGATIVE NEGATIVE [facility] HospitalWhite Blood Xghfz1726-99-84 11:16:00* Test Item Value Reference Range Interpretation Comments White Blood Count (test code = 6690-2) 8.54 4.8-10.8 [facility] HospitalRed Blood Piely3602-18-95 11:16:00* Test Item Value Reference Range Interpretation Comments Red Blood Count (test code = 789-8) 4.17 3.6-5.1 [facility] HospitalHemoglobin2018-03-11 11:16:00* Test Item Value Reference Range Interpretation Comments Hemoglobin (test code = 31529-7) 13.0 12.0-16.0 [facility] HospitalHematocrit2018-03-11 11:16:00* Test Item Value Reference Range Interpretation Comments Hematocrit (test code = 4544-3) 39.4 34.2-44.1 [facility] HospitalMean Corpuscular Vldsud6509-11-63 11:16:00* Test Item Value Reference Range Interpretation Comments Mean Corpuscular Volume (test code = 787-2) 94.5 81-99 [facility] HospitalMean Corpuscular Seztqsefim6704-51-22 11:16:00* Test Item Value Reference Range Interpretation Comments Mean Corpuscular Hemoglobin (test code = 785-6) 31.2 28-32 [facility] HospitalMean Corpuscular Hemoglobin Concent 2017-09-01 11:16:00* Test Item Value Reference Range Interpretation Comments Mean Corpuscular Hemoglobin Concent (test code = 786-4) 33.0 31-35 [facility] HospitalRed Cell Distribution Goczn1026-69-32 11:16:00* Test Item Value Reference Range Interpretation Comments Red Cell Distribution Width (test code = 35600-7) 13.3 11.7 -14.4 [facility] HospitalPlatelet Ycmbk5571-74-80 11:16:00* Test Item Value Reference Range Interpretation Comments Platelet Count (test code = 777-3) 396 140-360 H [facility] HospitalNeutrophils (%) (Auto)2017-09-01 11:16:00 * Test Item Value Reference Range Interpretation Comments Neutrophils (%) (Auto) (test code = 93229-0) 47.4 38.7-80.0 [facility] HospitalLymphocytes (%) (Auto)2017-09-01 11:16:00 * Test Item Value Reference Range Interpretation Comments Lymphocytes (%) (Auto) (test code = 736-9) 43.3 18.0-39.1 H [facility] HospitalMonocytes (%) (Auto)2017-09-01 11:16:00* Test Item Value Reference Range Interpretation Comments Monocytes (%) (Auto) (test code = 5905-5) 8.4 4.4-11.3 [facility] HospitalEosinophils (%) (Auto)2017-09-01 11:16:00 * Test Item Value Reference Range Interpretation Comments Eosinophils (%) (Auto) (test code = 713-8) 0.2 0.0-6.0 [facility] HospitalBasophils (%) (Auto)2017-09-01 11:16:00* Test Item Value Reference Range Interpretation Comments Basophils (%) (Auto) (test code = 706-2) 0.6 0.0-1.0 [facility] HospitalIM GRANULOCYTES %2017-09-01 11:16:00* Test Item Value Reference Range Interpretation Comments IM GRANULOCYTES % (test code = IM GRANULOCYTES %) 0.1 0.0- 1.0 [facility] HospitalNeutrophils # (Auto)2017-09-01 11:16:00* Test Item Value Reference Range Interpretation Comments Neutrophils # (Auto) (test code = 751-8) 4.0 2.1-6.9 [facility] HospitalLymphocytes # (Auto)2017-09-01 11:16:00* Test Item Value Reference Range Interpretation Comments Lymphocytes # (Auto) (test code = 89788-5) 3.7 1.0-3.2 H [facility] HospitalMonocytes # (Auto)2017-09-01 11:16:00* Test Item Value Reference Range Interpretation Comments Monocytes # (Auto) (test code = 742-7) 0.7 0.2-0.8 [facility] HospitalEosinophils # (Auto)2017-09-01 11:16:00* Test Item Value Reference Range Interpretation Comments Eosinophils # (Auto) (test code = 711-2) 0.0 0.0-0.4 [facility] HospitalBasophils # (Auto)2017-09-01 11:16:00* Test Item Value Reference Range Interpretation Comments Basophils # (Auto) (test code = 704-7) 0.1 0.0-0.1 [facility] HospitalAbsolute Immature Granulocyte (auto 2017-09-01 11:16:00* Test Item Value Reference Range Interpretation Comments Absolute Immature Granulocyte (auto (maggie t code = Absolute Immature Granulocyte (auto) 0.01 0-0.1 [facility] HospitalWhite Blood Kyysx7973-49-68 11:16:00* Test Item Value Reference Range Interpretation Comments White Blood Count (test code = 6690-2) 8.54 4.8-10.8 [facility] HospitalRed Blood Dlmhq0122-74-52 11:16:00* Test Item Value Reference Range Interpretation Comments Red Blood Count (test code = 789-8) 4.17 3.6-5.1 [facility] HospitalHemoglobin2018-03-11 11:16:00* Test Item Value Reference Range Interpretation Comments Hemoglobin (test code = 33599-6) 13.0 12.0-16.0 [facility] HospitalHematocrit2018-03-11 11:16:00* Test Item Value Reference Range Interpretation Comments Hematocrit (test code = 4544-3) 39.4 34.2-44.1 [facility] HospitalMean Corpuscular Lahmcp2438-94-73 11:16:00* Test Item Value Reference Range Interpretation Comments Mean Corpuscular Volume (test code = 787-2) 94.5 81-99 [facility] HospitalMean Corpuscular Uuehqejpps4584-34-66 11:16:00* Test Item Value Reference Range Interpretation Comments Mean Corpuscular Hemoglobin (test code = 785-6) 31.2 28-32 [facility] HospitalMean Corpuscular Hemoglobin Concent 2017-09-01 11:16:00* Test Item Value Reference Range Interpretation Comments Mean Corpuscular Hemoglobin Concent (test code = 786-4) 33.0 31-35 [facility] HospitalRed Cell Distribution Rjtft3988-90-67 11:16:00* Test Item Value Reference Range Interpretation Comments Red Cell Distribution Width (test code = 71505-8) 13.3 11.7 -14.4 [facility] HospitalPlatelet Pnvqf6170-56-33 11:16:00* Test Item Value Reference Range Interpretation Comments Platelet Count (test code = 777-3) 396 140-360 H [facility] HospitalNeutrophils (%) (Auto)2017-09-01 11:16:00 * Test Item Value Reference Range Interpretation Comments Neutrophils (%) (Auto) (test code = 41267-2) 47.4 38.7-80.0 [facility] HospitalLymphocytes (%) (Auto)2017-09-01 11:16:00 * Test Item Value Reference Range Interpretation Comments Lymphocytes (%) (Auto) (test code = 736-9) 43.3 18.0-39.1 H [facility] HospitalMonocytes (%) (Auto)2017-09-01 11:16:00* Test Item Value Reference Range Interpretation Comments Monocytes (%) (Auto) (test code = 5905-5) 8.4 4.4-11.3 [facility] HospitalEosinophils (%) (Auto)2017-09-01 11:16:00 * Test Item Value Reference Range Interpretation Comments Eosinophils (%) (Auto) (test code = 713-8) 0.2 0.0-6.0 [facility] HospitalBasophils (%) (Auto)2017-09-01 11:16:00* Test Item Value Reference Range Interpretation Comments Basophils (%) (Auto) (test code = 706-2) 0.6 0.0-1.0 [facility] HospitalIM GRANULOCYTES %2017-09-01 11:16:00* Test Item Value Reference Range Interpretation Comments IM GRANULOCYTES % (test code = IM GRANULOCYTES %) 0.1 0.0- 1.0 [facility] HospitalNeutrophils # (Auto)2017-09-01 11:16:00* Test Item Value Reference Range Interpretation Comments Neutrophils # (Auto) (test code = 751-8) 4.0 2.1-6.9 [facility] HospitalLymphocytes # (Auto)2017-09-01 11:16:00* Test Item Value Reference Range Interpretation Comments Lymphocytes # (Auto) (test code = 82130-9) 3.7 1.0-3.2 H [facility] HospitalMonocytes # (Auto)2017-09-01 11:16:00* Test Item Value Reference Range Interpretation Comments Monocytes # (Auto) (test code = 742-7) 0.7 0.2-0.8 [facility] HospitalEosinophils # (Auto)2017-09-01 11:16:00* Test Item Value Reference Range Interpretation Comments Eosinophils # (Auto) (test code = 711-2) 0.0 0.0-0.4 [facility] HospitalBasophils # (Auto)2017-09-01 11:16:00* Test Item Value Reference Range Interpretation Comments Basophils # (Auto) (test code = 704-7) 0.1 0.0-0.1 [facility] HospitalAbsolute Immature Granulocyte (auto 2017-09-01 11:16:00* Test Item Value Reference Range Interpretation Comments Absolute Immature Granulocyte (auto (maggie t code = Absolute Immature Granulocyte (auto) 0.01 0-0.1 [facility] Gywflvu8164-74-87 17:09:00* Test Item Value Reference Range Interpretation Comments Bedside Glucose (test code = 29372-5) 88 70-120 Meter ID: [id number] [facility] Glucose 2017-06-11 17:09:00* Test Item Value Reference Range Interpretation Comments Bedside Glucose (test code = 18371-9) 88 70-120 Meter ID: [id number] [facility] HospitalCreatine Kinase MB 2017-05-11 18:46:00* Test Item Value Reference Range Interpretation Comments Creatine Kinase MB (test code = 06560-2) 1.20 0.00-5.00 [facility] HospitalTrstarr regional medical centernin I8301-17-79 18:46:00* Test Item Value Reference Range Interpretation Comments Troponin I (test code = NQR5052) 0.012 0-0.300 [facility] HospitalCreatine Kinase RX9780-15-24 18:46:00* Test Item Value Reference Range Interpretation Comments Creatine Kinase MB (test code = 09056-8) 1.20 0.00-5.00 [facility] HospitalTrmusc health university medical centern S6819-98-64 18:46:00* Test Item Value Reference Range Interpretation Comments Troponin I (test code = UJE3693) 0.012 0-0.300 [facility] HospitalCreatine Lfuehu6447-05-95 18:39:00* Test Item Value Reference Range Interpretation Comments Creatine Kinase (test code = 2157-6) 59 29-168 [facility] HospitalLipase2017-11-18 18:39:00* Test Item Value Reference Range Interpretation Comments Lipase (test code = 3040-3) 23 8-78 [facility] HospitalCreatine Ivdtzz3498-90-67 18:39:00* Test Item Value Reference Range Interpretation Comments Creatine Kinase (test code = 2157-6) 59 29-168 [facility] HospitalLipase2017-11-18 18:39:00* Test Item Value Reference Range Interpretation Comments Lipase (test code = 3040-3) 23 8-78 [facility] HospitalUrine Transitional Epithelial Cells 2017-02-25 15:51:00* Test Item Value Reference Range Interpretation Comments Urine Transitional Epithelial Cells (test code = 8249-5) FEW NONE H [facility] HospitalUrine Transitional Epithelial Cells 2017-02-25 15:51:00* Test Item Value Reference Range Interpretation Comments Urine Transitional Epithelial Cells (test code = 8249-5) FEW NONE H [facility] HospitalCHEM CSRXH3779-46-63 21:29:89320DNProvidence Behavioral Health HospitalCHEM SAOQF7728-18-97 21:29:000.5[facility] HospitalCHEM JUFWX5751-08-65 18:17:0037[facility] HospitalSdzeitpcwENUKIEYPYRRI1182-10-46 18:17:0010.5[facility] MWWPDAVTPKTZ5150-31-79 18:17:0014[facility] HospitalZicbdylnoQGXOSPCJXEIN1488-24-37 18:17:003.6 [facility] HospitalBwqlcqqfxVVWOKXMMRIXA8424-41-45 18:17:001.0[facility] HospitalAzijxcxqtCIMNQJWKQANT4037-96-09 18:17:72752VBProvidence Behavioral Health HospitalFjliuarnjLJNGSOTIWFUD1673-38-72 18:17:000.1M[facility] SBDNTHIUVIMT9442-02-01 18:17:44092AUProvidence Behavioral Health HospitalLtrihrcxkVKQJHWSUUWYJ7358-50-52 18:17:28955 RxojfrifxWUTTYMHDGUWC3562-55-72 18:17:000.44 SoutheastELECTROLYTES 2015-11-28 18:17:0085 WdrisynpfSDYOWKDRPXUF6217-00-91 18:17:006[facility] WEYKVAOZAXWF4882-76-79 18:17:0027 WnaajdvolKHZFYWFFTOOT1371-77-16 18:17:84309 AgfwkuaqlRKBHYNUWXJXS2317-21-51 18:17:007.1M YuepocvqsOUWRWHLCCMMV4102-51-41 18:17:008.3M BrhvownndAAGKTQXZMHIF7300-54-43 18:17:003.5MH [facility] AEWDNHGYBHJD3629-92-35 18:17:0036 PwmheoxqvDBHYLGFJUNIS8793-03-71 18:17:003.5 AxvvtaoxsGMKYRCBVAIKB9700-88-95 18:17:0016[facility] HospitalBwvbkqdbbGVXSLWLQZHPBP1546-86-23 18:17:004.8 MooxnylgqHSGSOOPBOH3894-02-13 18:17:003.1M SoutheastHEMATOLOGY 2015-11-28 18:17:0047.1M IwwthronjAMZEESAGMG5827-41-22 18:17:006.9[facility] PMCOHNMIZI3601-80-39 18:17:000.1M McmwejkbpHJZWUYYZNF0364-31-41 18:17:000.5 HhwqliwnsPWUSJILGCF5378-80-84 18:17:000.6M FkwufuhjfYZTIRXYGKF1161-52-40 18:17:002.1M HlkkdhcvsURLEGUPJDO1855-69-60 18:17:002.9 [facility]HEMATOLOGY 2015-11-28 18:17:0043.3M FaiwfngelJPTXSMOCKN1994-66-34 18:17:009.0[facility] ACHXQPKSLF8022-36-52 18:17:0032.7 FgberovmhPAOYOIDCCV6585-36-30 18:17:0041.2M LjbegdhgbCXZCMLLRYH7406-75-28 18:17:0097.[facility] JtluaqbmpSHAABJXLXH7915-95-47 18:17:0013.[facility] SxdvhaogmDVLOJLWXUR6718-79-94 18:17:95520ZW SoutheastHEMATOLOGY 2015-11-28 18:17:00* Test Item Value Reference Range Interpretation Comments MCH (test code = MCH) 31.7 pg 27.0-31.0 NkhnedehpXNLDNJYFPR1994-81-25 18:17:004.24 GepguhinxXKWFYVACCC8404-15-46 18:17:0013.5 ZwygrohzbEFLVGKMSQK8723-78-26 18:17:006.7[facility] HospitalSPECIAL NSCVBZRLY5689-71-22 18:17:006.5 HnrnrdigrUQJPEHFJAX7808-80-97 20:31:0023[facility] HospitalKlchedtmsOMMNLFOTNH8461-56-95 20:31:00<10[facility] HospitalPhgfqwqnzEEDPIQHFCY7121-89-13 20:31:00Negative (09/26/15 3:31 PM) TwqomoxhdXGTAJVIBSH2237-14-21 20:31:00 Negative (09/26/15 3:31 PM) WtwvpjdluNXXQGXQNTY1351-48-64 20:31:00<0.2MH ZlgvuhnzpOOPDAJAEIX5523-70-38 20:31:00Negative (09/26/15 3:31 PM) [facility] SPECIAL FFWWTTXWY0913-70-15 15:31:005.6MH SoutheastCHEM CJUSC5150-60-81 15:21:00 93MH SoutheastCHEM KHXOR7806-83-62 15:21:0010MH SoutheastCHEM MZZJI8756-37-15 15:21:001.0MH SoutheastCHEM PAAMY0706-33-14 15:21:0026MH SoutheastCHEM PANEL 2015-05-06 15:21:0019MH SoutheastCHEM QDGRA8022-74-44 15:21:003.6[facility] CHEM MPQER7756-70-81 15:21:007.3MH SoutheastCHEM NSCTU6367-32-60 15:21:74103BQ SoutheastCHEM SLTPH9057-50-06 15:21:000.4MH SoutheastCHEM QIWZL1918-06-36 15:21:000.57MH SoutheastCHEM XPZNH9147-75-12 15:21:0011MH SoutheastCHEM PANEL 2015-05-06 15:21:007.9MH SoutheastCHEM TYXUN6216-75-56 15:21:003.7MH [facility] CHEM LMALA3047-02-52 15:21:0030MH SoutheastCHEM PTKBQ8524-25-18 15:21:008.8MH SoutheastCHEM QTENA6233-37-71 15:21:18720ZC SoutheastCHEM PFPML8050-07-68 15:21:003.9MH SoutheastCHEM ICZXP4673-69-18 15:21:36971JH SoutheastCHEM PANEL 2015-05-06 15:21:0095MH SoutheastCT BRAIN [place] [address] Patient Name: HANNY FITZPATRICK MR #: [id number] : 1955 Age/Sex: 62/F Req #: [id number] Adm Physician: Ordered by: YOLANDA RICE TEXTILE CUTTING MACHINE OPERATOR Report #: [id number] Location: Room/Bed: Procedure: [id number] CT/CT BRAIN WO Exam Date: 0 09/01/17 Exam Time: 1118 REPORT STATUS: Signed Exam: Head CT without contrast History: Left side body paresthesia. Alfred rison studies: None Technique: Axial images were obtained from the skull base to the vertex. Coronal and sagittal images reconstructed from the axial data. Intravenous contrast: None Findings: Scalp: No abnormalities. Bones: No fractures, blastic or lytic lesions. Brain sulci: Appropriate f or age. Ventricles: Normal in size and configuration. No hydrocephalus. Extr a-axial spaces: No masses, no fluid collection. Parenchyma: Subtle hypo densities in the bilateral periventricular white matter and posterior limb of the internal capsules are likely small vessel ischemic changes. No mass, he morrhage, acute or chronic large vascular territorial infarct. Sellar/supra sellar region: No abnormalities. Craniocervical junction: Patent foramen magnu m. No Chiari one malformation. Incidental findings: None. IMPRESSIO N: 1. No acute intracranial abnormality demonstrated. 2. Mild chronic small vessel ischemic changes. Signed by: DR Kobe Daniels M.D. on 09/01/2017 2:32 PM Dictated By: KOBE RIGGS MD Electronically Sign ed By: KOBE RIGGS MD on 09/01/17 1432 Transcribed By: MARLEN on 1432 COPY TO: YOLANDA RICE TEXTILE CUTTING MACHINE OPERATOR HEPTOBILIARY W PHARM [facility] [address] [place], [place] [id number] Patient Name: HANNY FITZPATRICK MR #: [id number] : 0 1955 Age/Sex: 61/F Req #: [id number] Adm Physician: Ordered by: BUD YEPEZ MD Report #: [id number] Location: [place] Room/Bed: Procedure: [id number] NM/HEPTOBILIARY W PHARM Exam Date: 06/10/17 Exam Time: 929 REPORT STATUS: S igned Hepatobiliary Scan with Gallbladder Ejection Fraction Clinical inf ormation: 61 F with abdominal pain x3 weeks. Report: Following intravenous administration of 6.6 millicuries of Tc-99m mebrofenin, dynamic images of the abdomen in the anterior projection were obtained through 30 minutes. Sincalid e (CCK analog) 1.5 micrograms was administered intravenously over 30 minutes w ith additional imaging for determination of gallbladder ejection [...] 40%). Impression: 1. Filling of the gallbladder exclude s the diagnosis of acute cystic duct obstruction/acute cholecystitis. 2. No rmal gallbladder ejection fraction of 82% does not support the clinical diagno sis of chronic cholecystitis/gallbladder dyskinesia. Signed by: Dr. Eri new M.D. on 06/10/2017 1:05 PM Dictated By: ERI DANIEL MD [facility] Signed By: ERI DANIEL MD on 06/10/17 1305 Transcribed By: MARLEN on 06/10 1305 COPY TO: BUD YEPEZ MD CT ABDOMEN/PELVIS [place] [address] Patient Name: HANNY FITZPATRICK MR #: [id number] : 0 1955 Age/Sex: 61/F Req #: [id number] Adm Physician: Ordered by: SONIYA HEREDIA MD Report #: [id number] Location: ER Room/Be d: Procedure: [id number] CT/CT ABDOMEN/PELVIS W Exam Date: 05/11/17 Exam Time: 2029 REPORT STATUS: S igned EXAM: CT Abdomen and Pelvis WITH contrast INDICATION: S EPIGASTRIC AND FLORIDALMA-UMBILICAL PAIN S [id number] S 2029 TECHNIQUE: Abdomen and pelvis were scanned utilizing a multidetector helical scanner from the lung base to t he pubic symphysis after administration of IV contrast. Coronal and sagittal r eformations were obtained. Routine protocol was performed. Scan was performed when during portal venous phase. IV CONTRAST: 100 mL of Isovue-370 ORAL CONTRAST: Gastrografin RADIATION DOSE: Total D LP: 358 mGy*cm Estimated effective dose: (DLP x 0.015 x size fact or) mSv COMPLICATIONS: None FINDINGS: LINES and TUBES: N one. LOWER THORAX: Mild bibasilar atelectasis. HEPATOBILIARY: Hepatic steatosis. No focal hepatic lesions. No biliary ductal dilation. GALLB LADDER: No radio-opaque stones or sludge. No wall thickening. SPLEEN: No s plenomegaly. PANCREAS: No focal masses or ductal dilatation. ADRENA LS: No adrenal nodules KIDNEYS/URETERS: Kidneys enhance symmetrically. No hydronephrosis. No cystic or solid mass lesions. No stones. GI TRACT: No abnormal distention, wall thickening, or evidence of bowel obstruction. S cattered diverticula. Appendix is normal. PELVIC ORGANS/BLADDER: Unremarkab le. LYMPH NODES: No lymphadenopathy. VESSELS: Unremarkable. PERIT ONEUM / RETROPERITONEUM: No free air or fluid. BONES: Unremarkable. SO FT TISSUES: Bilateral high gluteal calcifications compatible with prior inject ion granulomas. IMPRESSION: No acute abnormality in the abdo men or pelvis. Signed by: Dr Ben Amos MD on 05/11/2017 9:12 PM Dictated By: BEN AMOS MD 11 Transcribed By: MARLEN on 05/11/172111 COPY TO: SONIYA HEREDIA MD CT ABDOMEN/PELVIS [place] [address] Patient Name: HANNY FITZPATRICK MR #: [id number] : 1955 Age/Sex: 61/F Req #: [id number] Adm Physician: Ordered by: SONIYA HEREDIA MD Report #: [id number] Location: ER Room/Bed: Procedure: [id number] CT/CT ABDOMEN/PELVIS W Exam Date: 02/25/17 Exam Time: 1800 REPORT STATUS: S igned EXAM: CT Abdomen and Pelvis WITH contrast INDICATION: Left lower qu adrant pain, diverticulitis. COMPARISON: 08/09/2014 TECHNIQUE: Abdomen and pe lvis were scanned utilizing a multidetector helical scanner from the lung base to the pubic symphysis after administration of IV contrast. Coronal and sagit hardik reformations were obtained. Routine protocol was performed. Scan was perfo rmed when during portal venous phase. IV CONTRAST: 100 mL of Isovu e-370 ORAL CONTRAST: Gastrografin RADIATION DOSE: To hardik DLP: 434.67 mGy*cm Estimated effective dose: (DLP x 0.015 x s ize factor) mSv COMPLICATIONS: None FINDINGS: LINES and TUBES: None. LOWER THORAX: Unremarkable HEPATOBILIARY: The liver is d iffuse hypodense compared to the spleen, consistent with diffuse hepatic diffu se hepatic steatosis. No focal hepatic lesions. No biliary ductal dilation. GALLBLADDER: No radio-opaque stones or sludge. No wall thickening. SP GONZALES: No splenomegaly. PANCREAS: No focal masses or ductal dilatation. ADRENALS: No adrenal nodules KIDNEYS/URETERS: Kidneys enhance symme trically. No hydronephrosis. No cystic or solid mass lesions. No stones. GI TRACT: No abnormal distention, wall thickening, or evidence of bowel obst ruction. There are diverticula within the colon without evidence of diverticu litis. Appendix is normal. PELVIC ORGANS/BLADDER: Unremarkable. LYMPH NODES: No lymphadenopathy. VESSELS: Unremarkable. PERITONEUM / RETROP ERITONEUM: No free air or fluid. BONES: Unremarkable. SOFT TISSUES: Bi lateral high gluteal calcifications compatible with prior injection granulomas . IMPRESSION: 1. No evidence of acute intra-abdominal or pelvic abnormality, specifically no evidence of diverticulitis. Signed b y: Dr. Teto Glaser M.D. on 02/25/2017 8:15 PM Dictated By: TETO JANSEN MD 14 Tr anscribed By: MARLEN on 02/25/172014 COPY TO: SONIYA HEREDIA MD
--- OUTSIDE RECORDS SUMMARY | 2019-11-21 19:48 | XMS REPORT | Continuity of Care Document ---
Author Author Lizbeth Arthur Skicka Tårta Ninoska HANNY DUNCAN Alan [employer] Address Unknown Phone Unavailable Care Team Providers Care Custom Applicator Name Role Phone [employer] Information Exchange Unavailable Un available Problems Problem Status Onset Date Classification Date Reported Comments Source DX: H92.02=OTALGIA, LEFT EAR/R07.0=PAIN Active 2016 [facility] E11.9 Active 11/28/2015 [facility] M06.00 Active 09/26/2015 [facility] Z12.31 - ENCNTR SCREEN MAMMOGRAM FOR MA Active 06/15/2015 [facility] [place] BLE DX:DVT Active 10/25/2014 [facility] V76.12 - SCREEN MAMMOGRA Active 07/31/2012 [facility] Ferguson Final: Encounter for screening mammogram for malignant neoplasm of breast 11/28/2015 [facility] [place] 466.0 Active [facility] J06 Active [facility] E11.9/K76.0 Active [facility] Medications No Data Provided for This Section Allergies, Adverse Reactions, Alerts No Known Medication Allergies Immunizations No Data Provided for This Section Results Order Name Results Value Reference Range Date Interpretation Comments Source CHEM PANEL eGFR 105 07/16/2016 Result Comment: The eGFR is calculated [...] should be multiplied by the estimated BMI. [facility] CHEM PANEL POC Creatinine 0.5 0.5 - 1.4 07/16/2016 [facility] CHEM PANEL Vitamin D, 25-OH, Total 3 7 30 - 100 11/28/2015 [facility] ELECTROLYTES AGAP 10.5 10.0 - 20.0 11/28/2015 [facility] ELECTROLYTES B/C Ratio 14 6 - 25 11/28/2015 [facility] ELECTROLYTES Globulin 3.6 2.0 - 4.0 11/28/2015 [facility] ELECTROLYTES A/G Ratio 1.0 0.7 - 1.6 11/28/2015 [facility] ELECTROLYTES eGFR 110 11/28/2015 Result Comment: The eGFR is calculated [...] should be multiplied by the estimated BMI. [facility] ELECTROLYTES Bili Total 0.1 0.2 - 1.3 11/28/2015 [facility] ELECTROLYTES Alk Phos 104 39 - 136 11/28/2015 [facility] ELECTROLYTES Sodium Lvl 140 135 - 145 11/28/2015 [facility] ELECTROLYTES Creatinine Lvl 0.4 4 0.50 - 1.40 11/28/2015 [facility] ELECTROLYTES Glucose Lvl 85 70 - 99 11/28/2015 [facility] ELECTROLYTES BUN 6 7 - 22 11/28/2015 [facility] ELECTROLYTES CO2 27 24 - 32 11/28/2015 [facility] ELECTROLYTES Chloride Lvl 106 95 - 109 11/28/[facility] Total Protein 7.1 6.4 - 8.4 11/28/2015 [facility] ELECTROLYTES Calcium Lvl 8.3 8.5 - 10.5 11/28/2015 [facility] ELECTROLYTES Potassium Lvl 3.5 3.5 - 5.1 11/28/2015 [facility] ELECTROLYTES ALT 36 0 - 65 11/28/2015 [facility] ELECTROLYTES Albumin Lvl 3.5 3.5 - 5.0 11/28/2015 [facility] ELECTROLYTES AST 16 0 - 37 11/28/2015 [facility] ENDOCRINOLOGY Insulin Lvl 4.8 11/28/2015 [facility] HEMATOLOGY Lymphocytes # 3.1 1.0 - 5.5 11/28/2015 [facility] HEMATOLOGY Lymphocytes 47.1 20.0 - 40.0 11/28/2015 [facility] HEMATOLOGY Monocytes 6.9 2.0 - 12.0 11/28/2015 [facility] HEMATOLOGY Eosinophils # 0.1 0.0 - 0.5 11/28/2015 [facility] HEMATOLOGY Monocytes # 0.5 0.0 - 0.8 11/28/2015 [facility] HEMATOLOGY Basophils 0.6 0.0 - 1.0 11/28/2015 [facility] HEMATOLOGY Eosinophils 2.1 0.0 - 4.0 11/28/2015 [facility] HEMATOLOGY Segs-Bands # 2.9 1.5 - 8.1 11/28/2015 [facility] HEMATOLOGY Segs 43.3 45.0 - 75.0 11/28/2015 [facility] HEMATOLOGY MPV 9.0 7.4 - 10.4 11/28/2015 [facility] MCHC 32.7 32.0 - 36.0 11/28/2015 [facility] HEMATOLOGY Hct 41.2 36.0 - 48.0 11/28/2015 [facility] HEMATOLOGY MCV 97.1 80.0 - 98.0 11/28/2015 [facility] HEMATOLOGY RDW 13.1 11.5 - 14.5 11/28/2015 [facility] HEMATOLOGY Platelet 258 133 - 450 11/28/[address] [facility] MCH 31.7 27.0 - 31.0 11/28/2015 [facility] HEMATOLOGY RBC 4.24 4.20 - 5.40 11/28/2015 [facility] HEMATOLOGY Hgb 13.5 12.0 - 16.0 11/28/2015 [facility] HEMATOLOGY WBC 6.7 3.7 - 10.4 11/28/2015 [facility] SPECIAL CHEMISTRY Hgb A1C 6.5 <=5.6 % 11/28/2015 [facility] HEMATOLOGY Sed Rate 23 0 - 20 09/26/2015 [facility] IMMUNOLOGY RF Qnt <10 0 - 20 09/26/2015 [facility] IMMUNOLOGY P-ANCA Negat lucy (09/26/15 3:31 PM) Negative 09/26/2015 [facility] IMMUNOLOGY C-ANCA Negat lucy (09/26/15 3:31 PM) Negative 09/26/2015 [facility] IMMUNOLOGY SCL- 70 Ab <0.2 <=0.9 AI 09/26/2015 [facility] IMMUNOLOGY UGO Negat lucy (09/26/15 3:31 PM) Negative 09/26/2015 [facility] SPECIAL CHEMISTRY Hgb A1C 5.6 <=5.6 % 05/06/2015 [facility] CHEM PANEL Alk Phos 93 39 - 136 05/06/2015 [facility] CHEM PANEL AST 10 0 - 37 05/06/2015 [facility] CHEM PANEL A/G Ratio 1.0 0.7 - 1.6 05/06/2015 [facility] CHEM PANEL ALT 26 0 - 65 05/06/2015 [facility] CHEM PANEL B/C Ratio 19 6 - 25 05/06/2015 [facility] CHEM PANEL Globulin 3.6 2.0 - 4.0 05/06/2015 [facility] CHEM PANEL Total Protein 7.3 6.4 - 8.4 05/06/2015 [facility] CHEM PANEL eGFR 102 05/06/2015 Result Comment: The eGFR is calculated [...] should be multiplied by the estimated BMI. [facility] CHEM PANEL Bili Total 0.4 0.2 - 1.3 05/06/2015 [facility] CHEM PANEL Creatinine Lvl 0.57 0.50 - 1.40 05/06/2015 [facility] CHEM PANEL BUN 11 7 - 22 05/06/2015 [facility] CHEM PANEL AGAP 7.9 10.0 - 20.0 05/06/2015 [facility] CHEM PANEL Albumin Lvl 3.7 3.5 - 5.0 05/06/2015 [facility] CHEM PANEL CO2 30 24 - 32 05/06/2015 [facility] CHEM PANEL Calcium Lvl 8.8 8.5 - 10.5 05/06/2015 [facility] CHEM PANEL Sodium Lvl 137 135 - 145 05/06/2015 [facility] CHEM PANEL Potassium Lvl 3.9 3.5 - 5.1 05/06/2015 [facility] CHEM PANEL Chloride Lvl 103 95 - 109 05/06/2015 [facility] CHEM PANEL Glucose Lvl 95 70 - 99 05/06/2015 [facility] Pathology Reports No Data Provided for This Section Diagnostic Reports Report Value Date Source Neck soft tissue w contrast CT Neck [...] on the contrast CT of neck. SL: [id number] 07/16/2016 [facility] Digital Mammo Screening Carlos Manuel MA - DIGITAL MAMMO SCREENING CARLOS MANUEL MA BILATERAL DIGITAL SCREENING MAMMOGRAM WITH CAD: 11/25/2015 CLINICAL: Z12.31 Encounter For Screening Mammogram For Malignant Neoplasm Of Breast. Current study was evaluated with a Computer Aided Detection (CAD) system. Comparison is made to exams dated: 09/23/2013 mammogram, 09/18/2012 mammogram and 08/23/2011 mammogram - [facility]. The tissue of both breasts is almost entirely fat. No significant masses, calcifications, or other findings are seen in either breast. There has been no significant interval change. IMPRESSION: NEGATIVE There is no mammographic evidence of malignancy. A 1 year screening mammogram is recommended. Shanti Chowdary M.D. /penrad:11/25/2015 10:46:56 Textile Conversion Manager: Jennifer Yen RT(R)(M), [facility] This exam was dictated and interpreted by [id number] at [facility]. letter sent: Normal exam Mammogram BI-RADS: 1 Negative 11/25/2015 CRISTO Lee Chest 2 views Examination: Sonam x-ray, 2 views History: 466.0 acute bronchitis Comparison: 03/18/2014 Findings: The lungs are clear and without focal consolidation. The cardiomediastinal silhouette is within normal limits. No pleural effusion or pneumothorax is seen. The osseous structures are without focal abnormality. IMPRESSION: No acute cardiopulmonary disease. SL: 16 07/19/2014 [facility] Spine cervical 2 or 3 view DX Exam: Cervical spine x- ray, 2 views Reason for Exam: Neck pain [...] Impression: 1. Unremarkable cervical spine x-ray 03/18/2014 CRISTO Lee Chest 2 views Exam: Two-view c hest x-ray Reason for Exam: Pain Comparison Exam: Chest x-ray 08/02/2011 Discussion: Cardiomediastinal silhouette is within normal limits. Both hemidiaphragms well visualized. No pulmonary edema or pleural effusions. No focal lung consolidations. Trachea is midline. No acute bony abnormalities. Impression: 1. No acute cardiopulmonary abnormaliti es. 03/18/2014 [facility]ST[facility] Lee Digital Mammo Screening Carlos Manuel MA - DIGITAL MAMMO SCREENING CARLOS MANUEL MA BILATERAL DIGITAL SCREENING MAMMOGRAM WITH CAD: 09/23/2013 CLINICAL: Routine. Current study was evaluated with a Computer Aided Detection (CAD) system. Comparison is made to exams dated: 10/05/2008 mammogram - [facility], 12/27/2009 mammogram, 08/23/2011 mammogram and 09/18/2012 mammogram - [facility]. There are scattered fibroglandular densities in both breasts. There are benign vascular calcifications in the right breast. No significant masses, calcifications, or other findings are seen in either breast. There has been no significant interval change. IMPRESSION: BENIGN There is no mammographic evidence of malignancy. A screening mammogram in one year is recommended. Perfecto justice/penrad:09/23/2013 09:26:20 Textile Conversion Manager: Kailee CARTWRIGHT(R)(M), [facility] This exam was dictated and interpreted by [id number] for NAMITA Alarcon. letter sent: Normal exam Mammogram BI-RADS: 2 Benign 09/23/2013 CRISTO Lee Consultation Notes No Data Provided for This Section Discharge Summaries No Data Provided for This Section History and Physicals No Data Provided for This Section Vital Signs No Data Provided for This Section Encounters Location Location Details Encounter Type Encounter Number Reason For Visit Attending Provider ADM Date DC Date Status Source [facility] - [place] [facility] [id number] _MAPID:[id number] Kim boyce Michael 09/23/2013 09/24/2013 CRISTO Lee [facility] - [place] [facility] [id number] Phu Peraza 03/18/2014 03/19/2014 [facility] [place] [facility] Outpatient [id number] Abel Vital 07/19/2014 07/20/2014 [facility] Outpatient [id number] Phu Peraza 10/27/2014 10/28/2014 [facility] Outpatient [id number] Sunita Vital 05/06/2015 05/07/2015 [facility] Outpatient [id number] Jama Yarbrough 09/26/2015 09/27/2015 [facility] - [place] [facility] [id number] Matt Ellington 11/25/2015 11/26/2015 OPIMe[facility] Cruza [facility] Outpatient [id number] Sunita Yovanny 11/28/2015 11/29/2015 [facility] Outpatient [id number] Teddy Barboza 07/16/2016 07/17/2016 [facility] Procedures No Data Provided for This Section Assessment and Plan No Data Provided for This Section Plan of Care No Data Provided for This Section Social History Social History Date Source No data available for this section 07/17/2016 [facility] No data available for this section 11/26/2015 CRISTO Lee Family History No Data Provided for This Section Advance Directives No Data Provided for This Section Functional Status No Data Provided for This Section
--- NOTE | 2019-11-21 20:09 | Emergency Department Note ---
History of Present Illnes History of Present Illness Chief Complaint: Extremity Trauma/Pain History of Present Illness This is a 64 year old female with a history of Hyperlipidemia and Type 2 DM, who presents for evaluation of diffuse joint pain that started 3 days ago. Pt denies a history of previous similar pain. She denies any recent change in her level of activity. She primarily complains of pain in the ankles, wrists and knees. There has been no joint swelling, redness or warmth. 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 Any updates have been documented here. Past Medical History Recent Fever: No Clinical Suspicion of Infectio: No New/Unexplained Change in Ment: No Past Medical History: Diabetes, Asthma, UTI's, Anxiety, Hyperlipedemia Other Medical History: HIGH CHOLESTEROL GERD DIVERTICULITIS Past Surgical History: None Social History Smoking Cessation: Never Smoker Alcohol Use: None Any Illegal Drug Use: No TB Exposure/Symptoms: No Physically hurt or threatened: No Family History Family history of heart diseas: No Other Last Tetanus: 2017 Review of Systems Review of Systems Constitutional: no symptoms EENTM: no symptoms Cardiovascular: no symptoms Respiratory: no symptoms Gastrointestinal: no symptoms Genitourinary: no symptoms Musculoskeletal: joint pain (diffuse and symmetric, primarily wrists, ankles and knees) Neurological: no symptoms Psychological: no symptoms Hematological/Lymphatic: no symptoms Review of other systems All other systems reviewed and negative. Physical Exam Related Data Allergies: Coded Allergies: aspirin (Verified Allergy, Unknown, Swelling. itching, 02/25/17) Triage Vital Signs Vital Signs Date Time Temp Pulse Resp B/P (MAP) Pulse Ox O2 Delivery O2 Flow Rate FiO2 11/21/19 19:50 97.7 82 18 149/74 98 Vital signs reviewed: Yes Physical Exam CONSTITUTIONAL Constitutional: well-developed, well-nourished HENT HENT: normocephalic, atraumatic, oropharynx clear/moist, nose normal HENT L/R: left ext ear normal, right ext ear normal EYES Eyes: PERRL, conjunctivae normal NECK Neck: ROM normal PULMONARY Pulmonary: effort normal, breath sounds normal CARDIOVASCULAR Cardiovascular: regular rhythm, heart sounds normal, capillary refill normal, normal rate GASTROINTESTINAL GENITOURINARY SKIN MUSCULOSKELETAL Musculoskeletal: ROM normal (no joint swelling, redness or deformity), tenderness (bilateral wrists, knees and ) NEUROLOGICAL Neurological: alert, oriented x 3, no gross motor or sensory deficits PSYCHOLOGICAL Critical Care Time Subsequent provider I assumed direction of critical care for this patient from another provider of my specialty. Assessment & Plan Assessment & Plan Final Impression: (1) POLYARTHRITIS, UNSPECIFIED (2) PAIN IN JOINTS OF UNSPECIFIED HAND (3) PAIN IN UNSPECIFIED ANKLE AND JOINTS OF UNSPECIFIED FOOT (4) TYPE 2 DIABETES MELLITUS WITH UNSPECIFIED COMPLICATIONS (5) HYPERLIPIDEMIA, UNSPECIFIED Assessment & Plan - Pt with initial episode of polyarthritis, without fever, joint swelling or redness of joints. No evidence of systemic toxicity. Pain is much worse after she stood on her feet all day today, working as a chairman & chief executive officer. No calf pain or swelling. - Explained that she needs to f/u with her PCP for a serologic work-up and possibly xrays, to determine if she has RA or some other type of Rheumatologic disorder - Discussed that a short course of oral steroids will often help to significantly improve the pain. However, since she is a diabetic, she will have to follow her blood sugars closely. It sounds like she is well controlled at baseline. - Pt voiced understanding of the plan. Restrict your carbohydrate and sugar intake, while taking the Prednisone, and STOP the Prednisone if your blood sugar rise to 200 mg/dl or greater for 2 cons ecutive readings. Be sure to monitor your blood sugars at least once, if not twice daily. Follow-up with Dr. Love, for further evaluation of your multiple joint pains. Depart Disposition: HOME, SELF-CARE Last Vital Signs Date Time Temp Pulse Resp B/P (MAP) Pulse Ox O2 Delivery O2 Flow Rate FiO2 11/21/19 19:50 97.7 82 18 149/74 98 Home Meds Active Scripts Methylprednisolone (MEDROL) 4 Mg Tablet, 1 PKT PO . DIRECTED for for joint pain, #1 PACKET 0 Refills MEDROL DOSE PACK DIRECTED Prov:HENRY CAT MD 11/21/19 Tramadol Hcl (ULTRAM) 50 Mg Tablet, 1 TAB PO Q6H PRN for pain, #20 TAB 0 Refills DO NOT take and drive or operate machinery. Prov:HENRY CAT MD 11/21/19 Reported Medications Sucralfate (SUCRALFATE) 1 Gm Tablet, 1 GM PO ACHS, TAB 08/26/19 Promethazine Hcl (PROMETHAZINE HCL) 25 Mg Tablet, 25 MG PO Q12H, TAB 08/26/19 Phenazopyridine Hcl (PHENAZOPYRIDINE HCL) 100 Mg Tablet, 200 MG PO Q8H for 2 Days, TAB 08/26/19 Topiramate (TOPIRAMATE) 100 Mg Tablet, 50 MG PO DAILY, #30 TAB 08/07/19 Dicyclomine Hcl (DICYCLOMINE HCL) 20 Mg Tablet, 10 MG PO TID, TAB 08/07/19 Atorvastatin Calcium (LIPITOR) 20 Mg Tablet, 40 MG PO DAILY, #30 TAB 08/07/19 Pantoprazole Sodium* (PROTONIX) 40 Mg Tablet.dr, 40 MG PO BID, TAB 08/07/19 Paroxetine Hcl (PAROXETINE HCL) 20 Mg Tablet, 20 MG PO DAILY, #30 TAB 07/15/18 Nebivolol Hcl (BYSTOLIC) 10 Mg Tablet, 20 MG PO DAILY, TAB 07/15/18 [Trulicity] No Conflict Check, 1.5 MG SC WEEKLY ON SATURDAY'07/15/18 HENRY CAT MD November 21, 2019 20:09
[2019-11-21] MEDS ORDERED: ULTRAM50 MG PO (20:31)
[2019-11-21] MEDS ORDERED: MEDROL4 MG PO (20:32)
== END 2019-11-21 20:45 | disposition home or self-care (01) ==
LOC: FSED 19:44
DX: M25.572 Pain in left ankle and joints of left foot (principal); M25.571 Pain in right ankle and joints of right foot; M25.532 Pain in left wrist; M25.531 Pain in right wrist; M25.562 Pain in left knee; M25.561 Pain in right knee; M13.0 Polyarthritis, unspecified; E11.9 Type 2 diabetes mellitus without complications; E78.5 Hyperlipidemia, unspecified; F41.9 Anxiety disorder, unspecified; K21.9 Gastro-esophageal reflux disease without esophagitis; Z87.19 Personal history of other diseases of the digestive system
CPT/HCPCS: 99282

== ENCOUNTER 2020-03-09 12:37 | Emergency (ER) | payer BC ==
[~2020-03-09] VITALS: Ht 157.5 cm; Wt 73.9 kg
[~2020-03-09 12:37] MED LIST changes: +MEDROL4 MG PO; +ULTRAM50 MG PO
--- NOTE | 2020-03-09 12:49 | NUR ---
CALLED [facility] FOR LAB TRANSFER.
--- OUTSIDE RECORDS SUMMARY | 2020-03-09 12:58 | XMS REPORT | Continuity of Care Document ---
Author Author Lizbeth Arthur [employer] HANNY DUNCAN [employer] Address Unknown Phone Unavailable Care Team Providers Care Warehouse Consultant Name Role Phone [email or web address] Unavailable Un available Problems Problem Status Onset Date Classification Date Reported Comments Source DX: H92.02=OTALGIA, LEFT EAR/R07.0=PAIN Active 2016 [facility] E11.9 Active 11/28/2015 [facility] M06.00 Active 09/26/2015 [facility] Z12.31 - ENCNTR SCREEN MAMMOGRAM FOR MA Active 06/15/2015 [facility] [place] BLE DX:DVT Active 10/25/2014 [facility] V76.12 - SCREEN MAMMOGRA Active 07/31/2012 C[facility]O Ferguson Final: Encounter for screening mammogram for malignant neoplasm of breast 11/28/2015 [facility] [place] 466.0 Active [facility] J06 Active [facility] E11.9/K76.0 Active [facility] Medications No Data Provided for This Section [...] should be multiplied by the estimated BMI. [facility] CHEM PANEL POC Creatinine 0.5 0.5 - 1.4 07/16/2016 [facility] CHEM PANEL Vitamin D, 25-OH, Total 3 7 30 - 100 11/28/2015 [facility] ELECTROLYTES AGAP 10.5 10.0 - 20.0 11/28/2015 [facility] ELECTROLYTES B/C Ratio 14 6 - 25 11/28/2015 [facility] ELECTROLYTES Globulin 3.6 2.0 - 4.0 11/28/2015 [facility] ELECTROLYTES A/G Ratio 1.0 0.7 - 1.6 11/28/2015 [facility] ELECTROLYTES eGFR 110 11/28/2015 Result Comment: The [...] should be multiplied by the estimated BMI. [facility] ELECTROLYTES Bili Total 0.1 0.2 - 1.3 11/28/2015 [facility] ELECTROLYTES Alk Phos 104 39 - 136 11/28/2015 [facility] ELECTROLYTES Sodium Lvl 140 135 - 145 11/28/2015 [facility] ELECTROLYTES Creatinine Lvl 0.4 4 0.50 - 1.40 11/28/2015 [facility] ELECTROLYTES Glucose Lvl 85 70 - 99 11/28/2015 [facility] ELECTROLYTES BUN 6 7 - 22 11/28/2015 [facility] ELECTROLYTES CO2 27 24 - 32 11/28/2015 [facility] ELECTROLYTES Chloride Lvl 106 95 - 109 11/28/2015 [facility] Total Protein 7.1 6.4 - 8.4 11/28/2015 [facility] ELECTROLYTES Calcium Lvl 8.3 8.5 - 10.5 11/28/2015 [facility] ELECTROLYTES Potassium Lvl 3.5 3.5 - 5.1 11/28/2015 [facility] ELECTROLYTES ALT 36 0 - 65 11/28/2015 [facility] ELECTROLYTES Albumin Lvl 3.5 3.5 - 5.0 11/28/2015 [facility] ELECTROLYTES AST 16 0 - 37 11/28/2015 [facility] ENDOCRINOLOGY Insulin Lvl 4.8 11/28/2015 [facility] HEMATOLOGY Lymphocytes # 3.1 1.0 - 5.5 11/28/2015 [facility] HEMATOLOGY Lymphocytes 47.1 20.0 - 40.0 11/28/2015 [facility] HEMATOLOGY Monocytes 6.9 2.0 - 12.0 11/28/2015 [facility] HEMATOLOGY Eosinophils # 0.1 0.0 - 0.5 11/28/2015 [facility] HEMATOLOGY Monocytes # 0.5 0.0 - 0.8 11/28/2015 [facility] HEMATOLOGY Basophils 0.6 0.0 - 1.0 11/28/2015 [facility] HEMATOLOGY Eosinophils 2.1 0.0 - 4.0 11/28/2015 [facility] HEMATOLOGY Segs-Bands # 2.9 1.5 - 8.1 11/28/2015 [facility] HEMATOLOGY Segs 43.3 45.0 - 75.0 11/28/2015 [facility] HEMATOLOGY MPV 9.0 7.4 - 10.4 11/28/2015 [facility] MCHC 32.7 32.0 - 36.0 11/28/2015 [facility] HEMATOLOGY Hct 41.2 36.0 - 48.0 11/28/2015 [facility] HEMATOLOGY MCV 97.1 80.0 - 98.0 11/28/2015 [facility] HEMATOLOGY RDW 13.1 11.5 - 14.5 11/28/2015 [facility] HEMATOLOGY Platelet 258 133 - 450 11/28/2015 [facility] MCH 31.7 27.0 - 31.0 11/28/2015 [facility] HEMATOLOGY RBC 4.24 4.20 - 5.40 11/28/2015 [facility] HEMATOLOGY Hgb 13.5 12.0 - 16.0 11/28/2015 [facility] HEMATOLOGY WBC 6.7 3.7 - 10.4 11/28/2015 [facility] SPECIAL CHEMISTRY Hgb A1C 6.5 <=5.6 % 11/28/2015 [facility] HEMATOLOGY Sed Rate 23 0 - 20 09/26/2015 [facility] IMMUNOLOGY RF Qnt <10 0 - 20 09/26/2015 [facility] IMMUNOLOGY P-ANCA Negat lucy (09/26/15 3:31 PM) Negative 09/26/2015 [facility] IMMUNOLOGY C-ANCA Negat lucy (09/26/15 3:31 PM) Negative 09/26/2015 [facility] IMMUNOLOGY SCL- 70 Ab <0.2 <=0.9 AI 09/26/2015 [facility] IMMUNOLOGY UGO Negat lucy (09/26/15 3:31 PM) Negative 09/26/2015 [facility] SPECIAL CHEMISTRY Hgb A1C 5.6 <=5.6 % 05/06/2015 [facility] CHEM PANEL Alk Phos 93 39 - 136 05/06/2015 [facility] CHEM PANEL AST 10 0 - 37 05/06/2015 [facility] CHEM PANEL A/G Ratio 1.0 0.7 - 1.6 05/06/2015 [facility] CHEM PANEL ALT 26 0 - 65 05/06/2015 [facility] CHEM PANEL B/C Ratio 19 6 - 25 05/06/2015 [facility] CHEM PANEL Globulin 3.6 2.0 - 4.0 05/06/2015 [facility] CHEM PANEL Total Protein 7.3 6.4 - 8.4 05/06/2015 [facility] CHEM PANEL eGFR 102 05/06/2015 Result Comment: [...] should be multiplied by the estimated BMI. [facility] CHEM PANEL Bili Total 0.4 0.2 - 1.3 05/06/2015 [facility] CHEM PANEL Creatinine Lvl 0.57 0.50 - 1.40 05/06/2015 [facility] CHEM PANEL BUN 11 7 - 22 05/06/2015 [facility] CHEM PANEL AGAP 7.9 10.0 - 20.0 05/06/2015 [facility] CHEM PANEL Albumin Lvl 3.7 3.5 - 5.0 05/06/2015 [facility] CHEM PANEL CO2 30 24 - 32 05/06/2015 [facility] CHEM PANEL Calcium Lvl 8.8 8.5 - 10.5 05/06/2015 [facility] CHEM PANEL Sodium Lvl 137 135 - 145 05/06/2015 [facility] CHEM PANEL Potassium Lvl 3.9 3.5 - 5.1 05/06/2015 [facility] CHEM PANEL Chloride Lvl 103 95 - 109 05/06/2015 [facility] CHEM PANEL Glucose Lvl 95 70 - 99 05/06/2015 [facility] Pathology Reports No Data Provided for This [...] on the contrast CT of neck. SL: [id number] 07/16/2016 [facility] Digital Mammo Screening Carlos Manuel MA - DIGITAL MAMMO SCREENING CARLOS MANUEL MA BILATERAL DIGITAL SCREENING MAMMOGRAM WITH CAD: 11/25/2015 CLINICAL: Z12.31 Encounter For Screening Mammogram For Malignant Neoplasm Of Breast. Current study was evaluated with a Computer Aided Detection (CAD) system. Comparison is made to exams dated: 09/23/2013 mammogram, 09/18/2012 mammogram and 08/23/2011 mammogram - [facility]. The tissue of both breasts is almost entirely fat. No significant masses, calcifications, or other findings are seen in either breast. There has been no significant interval change. IMPRESSION: NEGATIVE There is no mammographic evidence of malignancy. A 1 year screening mammogram is recommended. Shanti Chowdary M.D. /penrad:11/25/2015 10:46:56 Fire Safety Director: Jennifer Yen RT(R)(M), [facility] This exam was dictated and interpreted by [id number] at [facility]. letter sent: Normal exam Mammogram BI-RADS: 1 Negative 11/25/2015 CRISTO Lee Chest 2 views Examination: Sonam x-ray, 2 views History: 466.0 acute bronchitis Comparison: 03/18/2014 Findings: The lungs are clear and without focal consolidation. The cardiomediastinal silhouette is within normal limits. No pleural effusion or pneumothorax is seen. The osseous structures are without focal abnormality. IMPRESSION: No acute cardiopulmonary disease. SL: 16 07/19/2014 [facility] Spine cervical 2 or 3 view DX [...] made to exams dated: 10/05/2008 mammogram - [place], 12/27/2009 mammogram, 08/23/2011 mammogram and 09/18/2012 mammogram - [facility]. There are scattered fibroglandular densities in both breasts. There are benign vascular calcifications in the right breast. No significant masses, calcifications, or other findings are seen in either breast. There has been no significant interval change. IMPRESSION: BENIGN There is no mammographic evidence of malignancy. A screening mammogram in one year is recommended. Perfecto justice/penrad:09/23/2013 09:26:20 Fire Safety Director: Kailee CARTWRIGHT(R)(M), [facility] This exam was dictated and interpreted by [id number] for NAMITA Alarcon. letter sent: Normal exam [...] Provider ADM Date DC Date Status Source [facility] [place] [facility] [id number] _MAPID:[id number] Kim boyce Michael 09/23/2013 09/24/2013 CRISTO Lee [facility] [place] [facility] [id number] Phu Peraza 03/18/2014 03/19/2014 [facility] Outpatient [id number] Abel Vital 07/19/2014 07/20/2014 [facility] Outpatient [id number] Phu Peraza 10/27/2014 10/28/2014 [facility] Outpatient [id number] Sunita Vital 05/06/2015 05/07/2015 [facility] Outpatient [id number] Jama Yarbrough 09/26/2015 09/27/2015 [facility] - [place] [facility] [id number] Matt Ellington 11/25/2015 11/26/2015 OPIM[facility] Cruza [facility] Outpatient [id number] Sunita Yovanny 11/28/2015 11/29/2015 [facility] Outpatient [id number] Teddy Barboza 07/16/2016 07/17/2016 [facility] Procedures No Data Provided for This Section Assessment and Plan No Data Provided for This Section Plan of Care No Data Provided for This Section Social History Social History Date Source No data available for this section 07/17/2016 [facility] No data available for this section 11/26/2015 CRISTO Lee Family History No Data Provided for This Section Advance Directives No Data Provided for This Section Functional Status No Data Provided for This Section
--- OUTSIDE RECORDS SUMMARY | 2020-03-09 12:58 | XMS REPORT | Continuity of Care Document ---
Author Author [facility] t Organization [facility] Address [address] [place] [address] Phone Unavailable Care Team Providers Care Supervisor [employer] Name Role Phone WU MOODY, MD WORRELL PCP BUD YEPEZ Attphys Unavailable Rich HEREDIA Attphys Unavailable Hector Barboza Attphys Kandi Hairston Attphys Matt Ellington Attphys Arlen Yarbrough Attphys Yong Peraza Attphys Richy Hairston Attphys Mckenzie Rodriguez Attphys Payers Payer Name Policy Type Policy Number Effective Date Expiration Date [place] [employer] [place] P[place] NA 2019 [id number] 00:[facility]00 [facility] Problems Condition Name Condition Details Condition Category Status Onset Date Resolution Date Last Treatment Date Treating Clinician Comments Source DX: H92.02=OTALGIA, LEFT EAR/R07.0=PAIN DX: H92.02=OTALGIA, LEFT EAR/R07.0=PAIN Active 2016 [facility] Active 2016 00:00:00 2016-07-17 08:32:00 Lizbeth Arthur E11.9 E11. 9 Active 11/28/2015 [facility] Active 2015-11-28 10:30:00 2015-11-28 12:35:00 Lizbeth Arthur M06.00 M06. 00 Active 09/26/2015 [facility] Active 2015-09-26 14:00:00 2015-09-26 15:10:00 Lizbeth Arthur Z12.31 - ENCNTR SCREEN MAMMOGRAM FOR MA Z12.31 - ENCNTR SCREEN MAMMOGRAM FOR MA Active 06/15/2015 [facility] Active 2015-06-15 00:01:00 2015-08-01 16:28:00 M chun Arthur BLE DX:DVT BLE DX:DVT Active 10/25/2014 [facility] Active 2014-10-25 00:00:00 2014-10-27 12:18:00 [facility] V76.12 - SCREEN MAMMOGRA V76. 12 - SCREEN MAMMOGRA Active 07/31/2012 [facility] [place] [facility] Active 2012-07-31 00:01:00 2014-02-15 03:44:00 Lizbeth Arthur Bronchitis Bronchitis Problem Active C [facility] Final: Encounter for screening mammogram for malignant neoplasm of breast Final: Encounter for screening mammogram for malignant neoplasm of breast 11/28/2015 [facility] Problem 2015-11-28 00:25:55 Lizbeth Arthur 466.0 466. 0 Active [facility] Active 2014-07-19 10:39:00 [facility] J06 J06 Active [facility] Active 2015-04-11 12:16:00 Lizbeth Arthur E11.9/K76.0 E11. 9/K76.0 Active [facility] Active 2015-05-06 09:07:00 Jalil Arthur Allergies, Adverse Reactions, Alerts Allergy Name Allergy Type Status Severity Reaction(s) Onset Date Inacti ve Date Treating Clinician Comments Source aspirin DA Active U 2019-01-19 00:00:00 [facility] aspirin DA Active U 2019-01-06 00:00:00 [facility] Aspirin Allergy to substance Active Swelling. itching 4 00:00:00 [facility] aspirin DA Active U 2014-09-17 00:00:00 [facility] Social History Social Habit Start Date Stop Date Quantity Comments Source Social History 2015-11-26 04:59:00 2015-11-26 04:59:00 [facility] Sex Assigned At 1955 00:00:00 1955 00:00:00 Female [facility] Medications Ordered Medication Name Filled Medication Name Start Date Stop Da te Current Medication? Ordering Clinician Indication Dosage Frequency Signature (SIG) Comments Components Source Methylprednisolone (Medrol) 4 Mg TABLET Methylprednisolone ( Medrol) 4 Mg TABLET 2019-11-21 20:32:00 Yes 1 .as Directed for F or Joint Pain [facility] Tramadol Hcl (Ultram) 50 Mg TABLET Tramadol Hcl (Ultram) 50 Mg TABLET 2019-11-21 20:31:00 Yes 1 Every 6 Hours as needed for P ain [facility] Atorvastatin Calcium (Lipitor) 20 Mg TABLET Atorvastat in Calcium (Lipitor) 20 Mg TABLET Yes 40 Daily [facility] Dicyclomine Hcl Dicyclomine Hcl Yes 10 Three Ti mes A Day [facility] Nebivolol Hcl (Bystolic) 10 Mg TABLET Nebivolol Hcl (Bystolic) 10 M g TABLET Yes 20 Daily [facility] Pantoprazole Sodium (Protonix) 40 Mg TABLET. Pantopr azole Sodium (Protonix) 40 Mg TABLET. Yes 40 Twice A Day [facility] Paroxetine Hcl Paroxetine Hcl Yes 20 Daily [facility] Phenazopyridine Hcl Phenazopyridine Hcl Yes 200 Every 8 Hours [facility] Promethazine Hcl Promethazine Hcl Yes 25 Every 12 Hours [facility] Sucralfate Sucralfate Yes 1 Before Meals And A t Bedtime [facility] Topiramate Topiramate Yes [address] [facility] Trulicity Trulicity Yes 1.[address] [facility] Nitrofurantoin Macrocrystal (Nitrofurantoin) 100 Mg CA PSULE Nitrofurantoin Macrocrystal (Nitrofurantoin) 100 Mg CAPSULE 2019-08-30 00:00:00 No 100 Every 12 Hours [facility] Omeprazole Omeprazole 2019-08-26 00:00:00 No 40 Twi ce A Day [facility] Montelukast Sodium Montelukast Sodium 2019-08-07 00:00:00 No 10 Bedtime [facility] Metformin Hcl Metformin Hcl 2018-07-15 00:00:00 No 500 Twice A Day [facility] Atorvastatin Calcium (Lipitor) 40 Mg TABLET Atorvastat in Calcium (Lipitor) 40 Mg TABLET 2017-06-07 00:00:00 No 40 Daily [facility] Esomeprazole Magnesium (Nexium) 40 Mg CAPSULE.DR Tan prazole Magnesium (Nexium) 40 Mg CAPSULE. 2017-06-07 00:00:00 No 40 Daily [facility] Nexium Nexium 2017-02-25 00:00:[address] [facility] Paroxetine Hcl (Paxil) 40 Mg TABLET Paroxetine Hcl (Paxil) 40 Mg TABLET 2014-08-04 00:00:00 No [address] [facility] Fluticasone Propionate (Flonase) 16 Gm SPRAY.SUSP Flut icasone Propionate (Flonase) 16 Gm SPRAY.SUSP 2014-04-26 00:00:00 No 2 Twice A Day [facility] Omeprazole Omeprazole 2014-04-26 00:00:00 No 40 Tomasa ly [facility] Paroxetine Hcl Paroxetine Hcl 2014-04-26 00:00:00 No 10 Daily [facility] Albuterol Sulfate (Albuterol Sulfate Hfa) 8.5 Gm HFA.A ER.AD Albuterol Sulfate (Albuterol Sulfate Hfa) 8.5 Gm HFA.AER.AD 2013-07-16 00:00:00 No 2 Every 6 Hours as needed [facility] Azithromycin (Z-Leland) 250 Mg TABLET Azithromycin (Z-Leland) 250 Mg T ABLET 2013-07-16 00:00:00 No [facility] Cefuroxime Axetil (Cefuroxime) 500 Mg TABLET Cefuroxim e Axetil (Cefuroxime) 500 Mg TABLET 2013-07-16 00:00:00 No 500 Twice A Day [facility] D-Methorphan Hb/Prometh Hcl (Promethazine-Dm Syrup) 11 8 Ml SYRUP D-Methorphan Hb/Prometh Hcl (Promethazine-Dm Syrup) 118 Ml SYRUP 2013-07-16 00:0 0:00 No [facility] Guaifenesin/Dextromethorphan (Mucinex Fast-Max Dm Max Liquid) 177 Ml LIQUID Guaifenesin/Dextromethorphan (Mucinex Fast-Max Dm Max Liquid) 177 Ml LIQUID 2013-07-16 00:00:00 No 1 Twice A Day [facility] Vital Signs Vital Name Observation Time Observation Value Comments Source Weight 2019-11-21 19:50:00 152 [lb_av] [facility] BMI (Body Mass Index) 2019-11-21 19:50:00 27.8 kg/m2 [facility] Body Temperature 2019-08-30 11:27:00 97.5 [degF] [facility] Procedures Procedure Date / Time Performed Performing Clinician Sourc e EGD BIOPSY SINGLE/MULTIPLE 2019-08-12 00:00:[address] [facility] DILATE ESOPHAGUS 1/MULT PASS 2019-08-12 00:00:00 [facility] Computed tomography of abdomen and pelvis with contrast 2019 00:00:00 BUD YEPEZ [facility] Plan of Care Planned Activity Planned Date Details Comments Source Instructions Rheumatoid Arthritis [facility] Encounters Start Date/Time End Date/Time Encounter Type Admission Type [facility] Facility Care Department Encounter ID Source 2019-11-21 19:44:00 2019-11-21 20:45:00 Departed Emergency Room [facility] [id number] [facility] 2019-08-26 11:34:00 2019-08-30 14:23:00 Discharged Inpatient [facility] [id number] [facility] 2019-08-12 05:17:00 2019-08-12 05:17:00 Registered Surgical Day Care [facility] [id number] [facility] 2019-08-07 13:26:00 2019-08-07 13:26:00 Registered Clinic 3 LAN YEPEZURICE [facility] [id number] [facility] [place] [facility] 2017-10-21 10:41:00 2017-10-21 11:12:[address] [facility] [id number] [facility] 2017-09-01 10:20:00 2017-09-01 12:18:00 Departed Emergency Room ER [facility] SONIYA [facility] [id number] [facility] 2017-06-11 14:02:00 2017-06-11 14:02:00 Registered Surgical Day Care [facility] [id number] [facility] 2017-06-10 08:34:00 2017-06-10 08:34:00 Registered Clinic EL BUD YEPEZ [facility] [id number] [facility] 2017-05-11 16:53:00 2017-05-11 21:49:00 Departed Emergency Room ER [facility] SONIYA [facility] [id number] [facility] 2017-02-25 14:40:00 2017-02-25 19:47:00 Departed Emergency Room ER [facility] SON[facility]YA [facility] [id number] [facility] 2016-07-16 13:03:00 2016-07-16 23:59:00 Outpatient Vic Barboza MHSE MHSE [id number] 2015-11-28 12:34:00 2015-11-28 23:59:00 Outpatient Vital, Tracee Chau MHSE MHSE [id number] 2015-11-25 09:10:00 2015-11-25 23:59:00 Outpatient Cory Ellington HOIP HOIP [id number] 2015-09-26 15:02:00 2015-09-26 23:59:00 Outpatient Jama Yarbrough MHSE MHSE [id number] 2015-05-06 09:06:00 2015-05-06 23:59:00 Outpatient Vital, Ka flory Chau MHSE MHSE [id number] 2014-10-27 12:17:00 2014-10-27 23:59:00 Outpatient Coral Peraza IE MHIE [id number] 2014-07-19 10:38:00 2014-07-19 23:59:00 Outpatient Vital, Marilee Lockhart IE MHIE [id number] 2014-03-18 15:49:00 2014-03-18 23:59:00 Outpatient Coral Peraza MHIE MHIE [id number] 2013-09-23 07:49:00 2013-09-23 23:59:00 Outpatient Syeda Rodriguez donita IE MHIE [id number] Results Test Description Test Time Test Comments Results Result Comments Source Urine Color 2019-08-30 14:11:00 Test Item Urine Color (test code = 5778-6) YELLOW YELLOW [facility] Pxtlajg5304-08-84 14:11:00* Test Item Value Reference Range Interpretation Comments Urine Clarity (test code = 40625-9) CLEAR CLEAR [facility] HospitalU[facility] Specific Nknqsme3045-09-35 14:11:00 * Test Item Value Reference Range Interpretation Comments Urine Specific Benedict (test code = 5811-5) 1.010 1.010-1.02 5 [facility] [id number] 14:11:00* Test Item Value Reference Range Interpretation Comments Urine pH (test code = 10445-6) 7 5-7 [facility] Leukocyte Lylbfqpf8835-35-68 14:11:00* Test Item Value Reference Range Interpretation Comments Urine Leukocyte Esterase (test code = 5799-2) NEGATIVE NEGATIVE [facility] Uvdzenn5704-05-10 14:11:00* Test Item Value Reference Range Interpretation Comments Urine Nitrite (test code = 38699-9) NEGATIVE NEGATIVE [facility] Rvrldkc6701-29-06 14:11:00* Test Item Value Reference Range Interpretation Comments Urine Protein (test code = 5804-0) NEGATIVE NEGATIVE [facility] Hospital[facility] Glucose (UA)2019-08-30 14:11:00* Test Item Value Reference Range Interpretation Comments Urine Glucose (UA) (test code = 2349-9) NEGATIVE NEGATIVE [facility] Hospital[facility] Qswdatc7766-27-03 14:11:00* Test Item Value Reference Range Interpretation Comments Urine Ketones (test code = 85050-6) NEGATIVE NEGATIVE [facility] Hospital[facility] Ocoioxepmpjw3848-89-58 14:11:00* Test Item Value Reference Range Interpretation Comments Urine Urobilinogen (test code = 11674-5) 0.2 0.2-1 [facility] Aaqexenxm8623-86-38 14:11:00* Test Item Value Reference Range Interpretation Comments Urine Bilirubin (test code = 1978-6) NEGATIVE NEGATIVE [facility] Hospital[facility] Uaugh1482-59-79 14:11:00* Test Item Value Reference Range Interpretation Comments Urine Blood (test code = 63687-3) NEGATIVE NEGATIVE [facility] Hospital[facility]rine color cqusqhnhkufcc5826-20-68 13:57:00* Test Item Value Reference Range Interpretation Comments Urine Color (test code = 5778-6) YELLOW YELLOW [facility] HospitalUrine oopmltp2921-87-41 13:57:00* Test Item Value Reference Range Interpretation Comments Urine Clarity (test code = 05513-7) CLEAR CLEAR [facility] Urine by Test strip 2019-08-30 13:57:00* Test Item Value Reference Range Interpretation Comments Urine Specific Benedict (test code = 5811-5) 1.010 1.010-1.02 5 [facility] HospitalU[facility] pH measurement by automated test wiwvf5770-95-27 13:57:00* Test Item Value Reference Range Interpretation Comments Urine pH (test code = 36915-5) 7 5-7 [facility] HospitalU[facility] leukocyte esterase detection by ovrrtkat3870-77-89 13:57:00* Test Item Value Reference Range Interpretation Comments Urine Leukocyte Esterase (test code = 5799-2) NEGATIVE NEGATIVE [facility] HospitalUrine nitrite fphdubirm2130-46-87 13:57:00* Test Item Value Reference Range Interpretation Comments Urine Nitrite (test code = 42136-7) NEGATIVE NEGATIVE [facility] HospitalUrine protein measurement by test strip (mass/volume)2019-08-30 13:57:00* Test Item Value Reference Range Interpretation Comments Urine Protein (test code = 5804-0) NEGATIVE NEGATIVE [facility] HospitalU[facility] glucose nmmgbacsz4218-23-73 13:57:00* Test Item Value Reference Range Interpretation Comments Urine Glucose (UA) (test code = 2349-9) NEGATIVE NEGATIVE [facility] HospitalUrine ketones detection by automated test uxgid6537-44-74 13:57:00* Test Item Value Reference Range Interpretation Comments Urine Ketones (test code = 24134-2) NEGATIVE NEGATIVE [facility] HospitalUrine urobilinogen measurement by test strip (mass/volume)2019-08-30 13:57:00* Test Item Value Reference Range Interpretation Comments Urine Urobilinogen (test code = 65120-1) 0.2 0.2-1 [facility] HospitalU[facility] total bilirubin measurement (mass/volume)2019-08-30 13:57:00* Test Item Value Reference Range Interpretation Comments Urine Bilirubin (test code = 1978-6) NEGATIVE NEGATIVE [facility] HospitalUrine erythrocytes pzqcgdfsk1112-27-49 13:57:00* Test Item Value Reference Range Interpretation Comments Urine Blood (test code = 37867-8) NEGATIVE NEGATIVE [facility] HospitalAutomated urine sediment leukocyte count by microscopy (number/high power field)2019-08-30 13:57:00* Test Item Value Reference Range Interpretation Comments Urine WBC (test code = 5821-4) 0-5 0-5 [facility] HospitalErythrocytes detection in urine sediment by light ofustjqsmj5334-15-64 13:57:00* Test Item Value Reference Range Interpretation Comments Urine RBC (test code = 12578-6) 0-5 0-5 [facility] HospitalBacteria detection in urine sediment by light kscxczdsol9506-05-15 13:57:00* Test Item Value Reference Range Interpretation Comments Urine Bacteria (test code = 31381-6) RARE NONE [facility] HospitalEpithelial cells detection in urine sediment by light gxhaqzhgse2327-38-15 13:57:00* Test Item Value Reference Range Interpretation Comments Urine Epithelial Cells (test code = 37925-6) FEW NONE [facility] HospitalBedside Xzwgecu6583-85-47 11:24:00* Test Item Value Reference Range Interpretation Comments Bedside Glucose (test code = 39915-3) 98 70-120 Meter ID: [id number] Regional Medical CenterCapillary blood glucose measurement by glucometer (mass/volume)2019-08-30 11:12:00* Test Item Value Reference Range Interpretation Comments Bedside Glucose (test code = 17222-9) 98 70-120 Meter ID: [id number] [facility] Kingwoododium Level 2019-08-30 06:58:00* Test Item Value Reference Range Interpretation Comments Sodium Level (test code = 2951-2) 142 136-145 [facility] HospitalPotassium Vbtcz2592-21-88 06:58:00* Test Item Value Reference Range Interpretation Comments Potassium Level (test code = 2823-3) 3.9 3.5-5.1 [facility] HospitalChloride Engke2725-88-20 06:58:00* Test Item Value Reference Range Interpretation Comments Chloride Level (test code = 2075-0) 113 98-107 H [facility] HospitalCarbon Dioxide Vebkt8274-46-66 06:58:00* Test Item Value Reference Range Interpretation Comments Carbon Dioxide Level (test code = 2028-9) 24 22-29 [facility] HospitalAnion Pvg2707-82-65 06:58:00* Test Item Value Reference Range Interpretation Comments Anion Gap (test code = 83285-8) 8.9 8-16 [facility] HospitalBlood Urea Vkbkiklm9116-67-96 06:58:00* Test Item Value Reference Range Interpretation Comments Blood Urea Nitrogen (test code = 3094-0) 16 7-26 [facility] HospitalCreatinine2020-03-08 06:58:00* Test Item Value Reference Range Interpretation Comments Creatinine (test code = 2160-0) 0.59 0.57-1.11 [facility] HospitalBUN/Creatinine Saarb9925-31-73 06:58:00* Test Item Value Reference Range Interpretation Comments BUN/Creatinine Ratio (test code = 3097-3) 27 6-25 H [facility] HospitalEstimat Glomerular Filtration Rate 2019-08-30 06:58:00* Test Item Value Reference Range Interpretation Comments Estimat Glomerular Filtration Rate (test code = 997759764) > 60 >60 Ranges were taken from the National Kidney Disease Education Program and the [facility] Foundation literature.Reference ranges:60 or greater: Pzzuja67-73 ( for 3 consecutive months): Chronic kidney disease 15 or less: Kidney failureUT Health East Texas Carthage HospitalGlucose Sbbkz2504-59-25 06:58:00* Test Item Value Reference Range Interpretation Comments Glucose Level (test code = JYT4614) 87 74-118 [facility] HospitalCalcium Bwrpf1926-54-34 06:58:00* Test Item Value Reference Range Interpretation Comments Calcium Level (test code = 16765-0) 8.8 8.4-10.2 [facility] HospitalTotal Lyiqctxlo4640-03-87 06:58:00* Test Item Value Reference Range Interpretation Comments Total Bilirubin (test code = 1975-2) 0.3 0.2-1.2 [facility] HospitalAspartate Amino Transf (AST/SGOT) 2019-08-30 06:58:00* Test Item Value Reference Range Interpretation Comments Aspartate Amino Transf (AST/SGOT) (test code = Aspartate Amino Transf (AST/SGOT)) 18 5-34 [facility] HospitalAlanine Aminotransferase (ALT/SGPT) 2019-08-30 06:58:00* Test Item Value Reference Range Interpretation Comments Alanine Aminotransferase (ALT/SGPT) (test code = 1742-6) 27 0-55 [facility] HospitalTotal Fwitypy4219-29-01 06:58:00* Test Item Value Reference Range Interpretation Comments Total Protein (test code = 2885-2) 6.3 6.5-8.1 L [facility] HospitalAlbumin2020-03-08 06:58:00* Test Item Value Reference Range Interpretation Comments Albumin (test code = 1751-7) 3.2 3.5-5.0 L [facility] HospitalGlobulin2020-03-08 06:58:00* Test Item Value Reference Range Interpretation Comments Globulin (test code = 23293-0) 3.1 2.3-3.5 [facility] HospitalAlbumin/Globulin Jxtyf8956-62-25 06:58:00 * Test Item Value Reference Range Interpretation Comments Albumin/Globulin Ratio (test code = 1759-0) 1.0 0.8-2.0 [facility] HospitalAlkaline Nfpiqyfrjno5528-45-35 06:58:00* Test Item Value Reference Range Interpretation Comments Alkaline Phosphatase (test code = 6768-6) 106 40-150 [facility] HospitalWhite Blood Peqxh6912-60-86 06:23:00* Test Item Value Reference Range Interpretation Comments White Blood Count (test code = 6690-2) 7.51 4.8-10.8 [facility] HospitalRed Blood Oqiuv8855-07-14 06:23:00* Test Item Value Reference Range Interpretation Comments Red Blood Count (test code = 789-8) 3.91 3.6-5.1 [facility] HospitalHemoglobin2020-03-08 06:23:00* Test Item Value Reference Range Interpretation Comments Hemoglobin (test code = 42387-1) 12.5 12.0-16.0 [facility] HospitalHematocrit2020-03-08 06:23:00* Test Item Value Reference Range Interpretation Comments Hematocrit (test code = 4544-3) 37.9 34.2-44.1 [facility] HospitalMean Corpuscular Qcvxfw6161-06-42 06:23:00* Test Item Value Reference Range Interpretation Comments Mean Corpuscular Volume (test code = 787-2) 96.9 81-99 [facility] HospitalMean Corpuscular Kgpkchbzwk0788-01-62 06:23:00* Test Item Value Reference Range Interpretation Comments Mean Corpuscular Hemoglobin (test code = 785-6) 32.0 28-32 [facility] HospitalMean Corpuscular Hemoglobin Concent 2019-08-30 06:23:00* Test Item Value Reference Range Interpretation Comments Mean Corpuscular Hemoglobin Concent (test code = 786-4) 33.0 31-35 [facility] HospitalRed Cell Distribution Spetb7792-93-90 06:23:00* Test Item Value Reference Range Interpretation Comments Red Cell Distribution Width (test code = 68638-6) 14.0 11.7 -14.4 [facility] HospitalPlatelet Jxcmo4453-49-79 06:23:00* Test Item Value Reference Range Interpretation Comments Platelet Count (test code = 777-3) 354 140-360 [facility] HospitalNeutrophils (%) (Auto)2019-08-30 06:23:00 * Test Item Value Reference Range Interpretation Comments Neutrophils (%) (Auto) (test code = 34955-1) 45.2 38.7-80.0 [facility] HospitalLymphocytes (%) (Auto)2019-08-30 06:23:00 * Test Item Value Reference Range Interpretation Comments Lymphocytes (%) (Auto) (test code = 736-9) 45.3 18.0-39.1 H [facility] HospitalMonocytes (%) (Auto)2019-08-30 06:23:00* Test Item Value Reference Range Interpretation Comments Monocytes (%) (Auto) (test code = 5905-5) 7.5 4.4-11.3 [facility] HospitalEosinophils (%) (Auto)2019-08-30 06:23:00 * Test Item Value Reference Range Interpretation Comments Eosinophils (%) (Auto) (test code = 713-8) 1.1 0.0-6.0 [facility] HospitalBasophils (%) (Auto)2019-08-30 06:23:00* Test Item Value Reference Range Interpretation Comments Basophils (%) (Auto) (test code = 706-2) 0.5 0.0-1.0 [facility] HospitalIM GRANULOCYTES %2019-08-30 06:23:00* Test Item Value Reference Range Interpretation Comments IM GRANULOCYTES % (test code = IM GRANULOCYTES %) 0.4 0.0- 1.0 [facility] HospitalNeutrophils # (Auto)2019-08-30 06:23:00* Test Item Value Reference Range Interpretation Comments Neutrophils # (Auto) (test code = 751-8) 3.4 2.1-6.9 [facility] HospitalLymphocytes # (Auto)2019-08-30 06:23:00* Test Item Value Reference Range Interpretation Comments Lymphocytes # (Auto) (test code = 25467-1) 3.4 1.0-3.2 H [facility] HospitalMonocytes # (Auto)2019-08-30 06:23:00* Test Item Value Reference Range Interpretation Comments Monocytes # (Auto) (test code = 742-7) 0.6 0.2-0.8 [facility] HospitalEosinophils # (Auto)2019-08-30 06:23:00* Test Item Value Reference Range Interpretation Comments Eosinophils # (Auto) (test code = 711-2) 0.1 0.0-0.4 [facility] HospitalBasophils # (Auto)2019-08-30 06:23:00* Test Item Value Reference Range Interpretation Comments Basophils # (Auto) (test code = 704-7) 0.0 0.0-0.1 [facility] HospitalAbsolute Immature Granulocyte (auto 2019-08-30 06:23:00* Test Item Value Reference Range Interpretation Comments Absolute Immature Granulocyte (auto (maggie t code = Absolute Immature Granulocyte (auto) 0.03 0-0.1 [facility]Bl[facility] leukocytes automated count (number/volume)2019-08-30 05:35:00* Test Item Value Reference Range Interpretation Comments White Blood Count (test code = 6690-2) 7.51 4.8-10.8 [facility] erythrocytes automated count (number/volume)2019-08-30 05:35:00* Test Item Value Reference Range Interpretation Comments Red Blood Count (test code = 789-8) 3.91 3.6-5.1 [facility] HospitalBlood hemoglobin measurement (moles/volume)2019-08-30 05:35:00* Test Item Value Reference Range Interpretation Comments Hemoglobin (test code = 29117-0) 12.5 12.0-16.0 [facility] HospitalAutomated blood hematocrit (volume fraction)2019-08-30 05:35:00* Test Item Value Reference Range Interpretation Comments Hematocrit (test code = 4544-3) 37.9 34.2-44.1 [facility] HospitalAutomated erythrocyte mean corpuscular btgiel7026-61-26 05:35:00* Test Item Value Reference Range Interpretation Comments Mean Corpuscular Volume (test code = 787-2) 96.9 81-99 [facility] HospitalAutomated erythrocyte mean corpuscular hemoglobin (mass per erythrocyte)2019-08-30 05:35:00* Test Item Value Reference Range Interpretation Comments Mean Corpuscular Hemoglobin (test code = 785-6) 32.0 28-32 [facility] HospitalAutomated erythrocyte mean corpuscular hemoglobin concentration measurement (mass/volume)2019-08-30 05:35:00* Test Item Value Reference Range Interpretation Comments Mean Corpuscular Hemoglobin Concent (test code = 786-4) 33.0 31-35 [facility] HospitalRDW MthOt-Gkh2614-65-08 05:35:00* Test Item Value Reference Range Interpretation Comments Red Cell Distribution Width (test code = 47402-1) 14.0 11.7 -14.4 [facility] HospitalAutomated blood platelet count (count/volume)2019-08-30 05:35:00* Test Item Value Reference Range Interpretation Comments Platelet Count (test code = 777-3) 354 140-360 [facility] HospitalAutomated blood segmented neutrophil count as percentage of total upwtewkmlt3288-37-11 05:35:00* Test Item Value Reference Range Interpretation Comments Neutrophils (%) (Auto) (test code = 09610-3) 45.2 38.7-80.0 [facility] HospitalAutomated blood lymphocyte count as percentage ot total saustddjut6156-58-09 05:35:00* Test Item Value Reference Range Interpretation Comments Lymphocytes (%) (Auto) (test code = 736-9) 45.3 18.0-39.1 [facility] HospitalAutomated blood monocyte count as percentage of total czemtclyei2774-64-56 05:35:00* Test Item Value Reference Range Interpretation Comments Monocytes (%) (Auto) (test code = 5905-5) 7.5 4.4-11.3 [facility] HospitalAuthighlands-cashiers hospitaled blood eosinophil count as percentage of total fjalwsvnla1195-64-77 05:35:00* Test Item Value Reference Range Interpretation Comments Eosinophils (%) (Auto) (test code = 713-8) 1.1 0.0-6.0 [facility] HospitalAutomated blood basophil count as percentage of total vmptdcydpr5359-68-98 05:35:00* Test Item Value Reference Range Interpretation Comments Basophils (%) (Auto) (test code = 706-2) 0.5 0.0-1.0 [facility] HospitalFluoroscopic procedure less than one hour lpxgyhcb1150-67-67 05:35:00* Test Item Value Reference Range Interpretation Comments IM GRANULOCYTES % (test code = IM GRANULOCYTES %) 0.4 0.0- 1.0 [facility] HospitalAutomated blood neutrophil count 2019-08-30 05:35:00* Test Item Value Reference Range Interpretation Comments Neutrophils # (Auto) (test code = 751-8) 3.4 2.1-6.9 [facility] HospitalBlood lymphocytes count (number/volume) 2019-08-30 05:35:00* Test Item Value Reference Range Interpretation Comments Lymphocytes # (Auto) (test code = 91369-6) 3.4 1.0-3.2 [facility] HospitalBlood monocytes automated count (number/volume)2019-08-30 05:35:00* Test Item Value Reference Range Interpretation Comments Monocytes # (Auto) (test code = 742-7) 0.6 0.2-0.8 [facility] HospitalAutomated blood eosinophil count 2019-08-30 05:35:00* Test Item Value Reference Range Interpretation Comments Eosinophils # (Auto) (test code = 711-2) 0.1 0.0-0.4 [facility] HospitalAutomated blood basophil count (count/volume)2019-08-30 05:35:00* Test Item Value Reference Range Interpretation Comments Basophils # (Auto) (test code = 704-7) 0.0 0.0-0.1 [facility] HospitalFluoroscopic procedure less than one hour kpkzganm0711-38-83 05:35:00* Test Item Value Reference Range Interpretation Comments Absolute Immature Granulocyte (auto (maggie t code = Absolute Immature Granulocyte (auto) 0.03 0-0.1 [facility] or plasma sodium measurement (moles/volume)2019-08-30 05:35:00* Test Item Value Reference Range Interpretation Comments Sodium Level (test code = 2951-2) 142 136-145 [facility]inteerum or plasma potassium measurement (moles/volume)2019-08-30 05:35:00* Test Item Value Reference Range Interpretation Comments Potassium Level (test code = 2823-3) 3.9 3.5-5.1 [facility]inteerum or plasma chloride measurement (moles/volume)2019-08-30 05:35:00* Test Item Value Reference Range Interpretation Comments Chloride Level (test code = 2075-0) 113 98-107 [facility]inteerum or plasma carbon dioxide, total measurement (moles/volume)2019-08-30 05:35:00* Test Item Value Reference Range Interpretation Comments Carbon Dioxide Level (test code = 2028-9) 24 22-29 [facility]inteerum or plasma anion hgy0943-66-25 05:35:00* Test Item Value Reference Range Interpretation Comments Anion Gap (test code = 58881-9) 8.9 8-16 [facility]inteerum or plasma urea nitrogen measurement (mass/volume)2019-08-30 05:35:00* Test Item Value Reference Range Interpretation Comments Blood Urea Nitrogen (test code = 3094-0) 16 7-26 [facility]inte[facility]um or plasma creatinine measurement (mass/volume)2019-08-30 05:35:00* Test Item Value Reference Range Interpretation Comments Creatinine (test code = 2160-0) 0.59 0.57-1.11 [facility]inteerum or plasma urea nitrogen/creatinine mass jnnom0743-63-10 05:35:00* Test Item Value Reference Range Interpretation Comments BUN/Creatinine Ratio (test code = 3097-3) 27 6-25 [facility] HospitalEstimated glomerular filtration rate (GFR) etxltqidelgsu6894-70-68 05:35:00* Test Item Value Reference Range Interpretation Comments Estimat Glomerular Filtration Rate (test code = 880425949) > 60 >60 Ranges were taken from the National Kidney Disease Education Program and the [facility] Foundation literature.Reference ranges:60 or greater: Xpufym48-85 ( for 3 consecutive months): Chronic kidney disease 15 or less: Kidney failureUT Health [facility] Car[facility] HospitalGlucose fkzchvtyxup2714-86-51 05:35:00* Test Item Value Reference Range Interpretation Comments Glucose Level (test code = OAC2244) 87 74-118 [facility]um or plasma calcium measurement (mass/volume)2019-08-30 05:35:00* Test Item Value Reference Range Interpretation Comments Calcium Level (test code = 58626-8) 8.8 8.4-10.2 [facility]um or plasma total bilirubin measurement (mass/volume)2019-08-30 05:35:00* Test Item Value Reference Range Interpretation Comments Total Bilirubin (test code = 1975-2) 0.3 0.2-1.2 [facility] HospitalFluoroscopic procedure less than one hour syskhqoj9414-11-54 05:35:00* Test Item Value Reference Range Interpretation Comments Aspartate Amino Transf (AST/SGOT) (test code = Aspartate Amino Transf (AST/SGOT)) 18 5-34 [facility]inteerum or plasma alanine aminotransferase measurement (enzymatic activity/volume)2019-08-30 05:35:00* Test Item Value Reference Range Interpretation Comments Alanine Aminotransferase (ALT/SGPT) (test code = 1742-6) 27 0-55 [facility]um or plasma protein measurement (mass/volume)2019-08-30 05:35:00* Test Item Value Reference Range Interpretation Comments Total Protein (test code = 2885-2) 6.3 6.5-8.1 [facility]um or plasma albumin measurement (mass/volume)2019-08-30 05:35:00* Test Item Value Reference Range Interpretation Comments Albumin (test code = 1751-7) 3.2 3.5-5.0 [facility] HospitalPlasma globulin measurement (mass/volume) 2019-08-30 05:35:00* Test Item Value Reference Range Interpretation Comments Globulin (test code = 36435-7) 3.1 2.3-3.5 [facility]um or plasma albumin/globulin mass epvqh3775-45-51 05:35:00* Test Item Value Reference Range Interpretation Comments Albumin/Globulin Ratio (test code = 1759-0) 1.0 0.8-2.0 [facility]um or plasma alkaline phosphatase measurement (enzymatic activity/volume)2019-08-30 05:35:00* Test Item Value Reference Range Interpretation Comments Alkaline Phosphatase (test code = 6768-6) 106 40-150 [facility] HospitalCT ABDOMEN/PELVIS R7578-44-40 17:55:00 [facility] [address] [place] [address] Patient Name: GALA FITZPATRICK MR #: [id number] : 02/1956 Age/Sex: 64/F Req #: [id number] Adm Physician: Ordered by: BUD YEPEZ MD Report #: [id number] Location: CT Room/Bed: Procedure: 0214-[address]/CT [...] 90 mg/dL 74-106 N Performed by certified plug making operator at [facility] - MRI L-SPINE W WO [id number] 11:51:00 FAX: Ugo Ballesteros MD [phone] [place]: St: ADM Name: GALA SMITH [facility] : [birth year] Age/S: 63/F [address] [facility] Unit #: [id number] Loc: V.[address] [place] [address] Phys: Ugo Love MD Acct: [id number] Dis Date: Status: ADM IN PHONE #: [phone] Exam Date: 01/20/2019924 FAX #: [phone] Reason: Left leg weakness EXAMS: CPT CODE: [id number] MRI L-SPINE W WO CON 62583 HISTORY: Left leg weakness. COMPARISON: None available. 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 No enhancement of the conus or the Tarlov cyst after gadolinium. N o leptomeningeal enhancement noted either. Vertebral body he [...] stenosis. At L2-L3 level no disc herniation, chris l or foraminal stenosis. At L3-L4 level no disc herniation, canal or foraminal stenosis is noted. At L4-L5 level 3 mm posterio r central and bilateral lateral disc protrusion. Mild [...] Signed Report (CONTINUED) FAX: Ugo Ballesteros MD [phone] [facility] s: B St: ADM Name: GALA FITZPATRICK [facility] : 1955 Age/S: 63/F [address] [facility] Unit #: [id number] Loc: V.8 [place] [address] Ph ys: Ugo Love MD Acct: [id number] Dis Date: Status: ADM IN PHONE #: [phone] Exam Date: 01/20/2019 09 FAX #: [phone] Reason: Left leg weakness EXAMS: CPT CODE: [id number] MRI L-SPINE W WO CON 01718 <Continued> At L5-S1 level 3.6 cm central disc osteophyte effaces the thecal sac. No canal or foraminal stenosis is noted. Correlate with radicular symptoms. at 1151 Reported and signed by: Hu German M.D. CC: Ugo Love Technologist: Carri Melendez(Coral)(MR) Trnakrd Date/Time/By: 01/20/2019 (5821) : By: [email or web address] Orig Print D/T: S: 01/20/2019 (4069) PAGE 2 Signed Report - MRI BRAIN W WO CONT 2019-01-20 09:44:00 FAX: Ugo Ballesteros MD [phone] [place]: St: ADM Name: GALA SMITH [facility] : [birth year] Age/S: 63/F [address] [facility] Unit #: [id number] Loc: V.[address] [place] [address] Phys: Ugo Love MD Acct: [id number] Dis Date: Status: ADM IN PHONE #: [phone] Exam Date: 01/20/2019923 FAX #: [phone] Reason: Left leg weakness EXAMS: CPT CODE: [id number] MRI BRAIN W WO CONT 10879 HISTORY: Left leg weakness. COMPARISON: Head CT from previous day. MRI brain with and without contrast: No acute territorial vascular or acute lacunar i nfarction. No MR evidence for hemorrhage. No extra-axial fluid collections . Minimal periventricular white matter ischemic change. No herniation, hydrocephalus or midline shift. Fourth ventricle is midline. Th e expected flow-voids are noted within the major intracranial vasculature. VII and VIII nerve complex are symmetrical and normal mastoid air cells a re clear. Sinuses demonstrated partial opacification of the posterior righ t ethmoid air cells. Intraorbital contents are unremarkable. Midbrain, brianna and medulla are without mass effect. No cerebellar ectopia . Pituitary gland, optic chiasm and corpus callosum are normal. Clivus wit h normal marrow signal. Following gadolinium no abnormal enhancing masses or lesions or meningeal enhancement is noted. IMPRESSION: No acute territorial vascular or acute lacunar infarction. No abnorm al enhancing masses or lesions. No herniation, hydrocephalus or midline shift. Electronically Signed by Tamanna German on 019 at 0944 Reported and signed by: Hu German M.D. CC: Ugo Love Technolog ist: Carri Melendez(Coral)(MR) Trnscrd Date/Time/By : 01/20/2019 (0944) : By: [email or web address] Orig Print D/T: S: 01/20/2019 (094 7) PAGE 1 Signed Report [id number] 07:22:00* Test Item Value Reference Range Interpretation Comments GLUBED (test code = GLUBED) 89 mg/dL 74-106 N Performed by certified plug making operator at [facility] FKLUTJ3387-62-49 05:40:00* Test Item Value Reference Range Interpretation Comments GLUBED (test code = GLUBED) 93 mg/dL 74-106 N Performed by certified plug making operator at [facility] XAWDVJ7967-59-43 23:06:00* Test Item Value Reference Range Interpretation Comments GLUBED (test code = GLUBED) 82 mg/dL 74-106 N Performed by certified plug making operator at [facility] MNCDEV9443-48-04 21:52:00* Test Item Value Reference Range Interpretation Comments GLUBED (test code = GLUBED) 240 mg/dL 74-106 H Performed by certified plug making operator at [facility] - XR CHEST 1 [id number] 14:58:00 FAX: Ugo Ballesteros MD [phone] [place]: St: REG FAX: Angel Olea DO Name: [facility] 1955 Age/S: 63/F [address] [facility] Unit #: [id number] Loc: [place] [address] Phys: Angel Olea DO Acct: [id number] Dis Date: Status: REG ER PHONE #: [phone] Exam Date: 01/19/2019 9070 FAX #: [phone] Reason: CHEST PAIN EXAMS: CPT CODE: [id number] XR CHEST 1 V 93429 REASON FOR EXAM: CHEST PAIN EXAM ORDER DATE: 01/19/2019 12:39 PM Ordering MClifton: Angel Olea DO PROCEDURE: - XR CHEST 1 V COMPARISON: 01/06/2019 FINDINGS: Portable AP frontal view of the chest obtained at 2:34 PM shows clear lungs without evidence of consolidation. There is no evidence of effusion. The heart size is within normal limits. Pulmonary vasculatures are unremarkable. IMPRESSION: No active disease. Elect ronically Signed by Tamanna Moran on 01/19/2019 at 0721 R eported and signed by: Surjit Moran M.D. CC: Ugo Love; Angel Finn DO Technologist: DAYNA KOO RT(R) Trnscrd Date/Time/By: 01/19/2019 (5043) : By: Emilee TL Orig Print D/T: S: 01/19/2019 (7573) PAGE 1 Signed Report BASIC METABOLIC [id number] 14:19:00* Test Item Value Reference Range Interpretation [...] code = CA) 9.0 mg/dL 8.5-10.1 N [id number]-[id number] 14:19:00* Test Item Value Reference Range Interpretation Comments TROPONIN-I (test code = TROPI) <0.015 ng/mL 0-0.045 N BASIC METABOLIC [id number] 14:12:00* Test Item Value Reference Range Interpretation [...] CALCIUM (test code = CA) mg/dL 8.5-10.1 [id number]-[id number] 14:12:00* Test Item Value Reference Range Interpretation Comments TROPONIN-I (test code = TROPI) ng/mL 0-0.045 CBC W/O [id number] 13:53:00* Test Item Value Reference Range Interpretation [...] MPV) 10.1 fL 6.7-11.0 N CBC W/O [id number] 13:50:00* Test Item Value Reference Range Interpretation [...] MPV) fL 6.7-11.0 - CT HEAD/BRAIN W/O [id number] 13:33:00 Name: GALA FITZPATRICK [facility] : 1955 Age/S: 63 / F [address] [facility] Unit #: [id number] Loc: [place] [address] Phys: nAgel Olea DO Acct: [id number] Dis Date: Status: REG ER PHONE #: [phone] Exam Date: 01/19/2019 1323 FAX #: [phone] Reason: left lower leg numbness/headache EXAMS: CPT CODE: [id number] CT HEAD/BRAIN W/O CONT 65523 HISTORY: Left leg numbness. COMPARISON: January 06, 2019. CT brain without contrast: Automated exposure control. No acute intracranial bleeds or extra-axial collections are noted. No acute territorial vascular infarction is noted. The sulci, gyri, ventricles and subarachnoid spaces and the basilar cisterns are normal for patient's age. No herniation or hydro cephalus or midline shift is noted. Mild periventricular isc hemic gliosis is noted. Age-appropriate atrophy is noted as well. Portions of the visualized paranasal sinuses are normal. No obvious bony calvarial defect is noted. IMPRESSION: No acute intracranial bleeds or extra-axial collections. No acute territorial vascular infarction. No herniation or hy drocephalus or midline shift. Chronic white matter ischemic d isease and atrophy . at 1333 Reported and angeles d by: Hu German M.D. CC: Celso Love Adam T DO Technologist:Cheli YarbroughRT(R),CT; Kierra CTDI: DLP: Trnscb Date/Time: 01/19/2019 (2173) [email or web address] Orig Prin t D/T: S: 01/19/2019 (0011) PAGE 1 Signed Report BASIC METABOLIC [id number] 18:49:00* Test Item Value Reference Range Interpretation [...] CA) 9.5 mg/dL 8.5-10.1 N HEPATIC FUNCTION [id number] 18:49:00* Test Item Value Reference Range Interpretation [...] reference range due to change in reagent. [id number] 18:49:00* Test Item Value Reference Range Interpretation Comments TROPONIN-I (test code = TROPI) <0.015 ng/mL 0-0.045 N - CT HEAD/BRAIN W/O [id number] 18:41:00 Name: GALA FITZPATRICK [facility] : 1955 Age/S: 63 / F [address] Unit #: [id number] Loc: [place] [address] Phys: Dev Robertson MD Acct: [id number] Dis Date: Status: REG ER PHONE #: [phone] Exam Date: 01/06/2019 180 FAX #: [phone] Reason: headache EXAMS: CPT CODE: [id number] CT HEAD/BRAIN W/O CONT 14365 HISTORY: headache TECHNIQUE: Noncontrast 2.5 mm axial [...] ear cavities are clear. Orbital contents are unremarkabl e. Calvarium and skull base are intact. IMPRESSION : Negative CT head. Electronically [place] d by Cisco Gresham MD on 01/06/2019 at 1841 Reported and s igned by: Cisco Gresham MD CC: Dev Robertson MD; Ugo Love Technologist:Gracy Dolan RT(R) CTDI: DLP : Trnscb Date/Time: 01/06/2019 (1840) t.SDR.RR31 Or ig Print D/T: S: 01/06/2019 (213) PAGE 1 Signed Rep ort BASIC METABOLIC [id number] 18:40:00* Test Item Value Reference Range Interpretation [...] code = CA) mg/dL 8.5-10.1 HEPATIC FUNCTION [id number] 18:40:00* Test Item Value Reference Range Interpretation [...] TOTAL (test code = ALKP) IUnit/L 45-117 [id number] 18:40:00* Test Item Value Reference Range Interpretation Comments TROPONIN-I (test code = TROPI) ng/mL 0-0.045 CBC W/O [id number] 18:29:00* Test Item Value Reference Range Interpretation [...] MPV) 10.0 fL 6.7-11.0 N CBC W/O [id number] 18:26:00* Test Item Value Reference Range Interpretation [...] MPV) fL 6.7-11.0 - XR CHEST 1 [id number] 18:10:00 FAX: Dev Dominguez [phone] [place]: St: PRE FAX: Ugo Ballesteros MD [phone] Name: GALA FITZPATRICK [facility] : 1955 Age/S: 63/F [address] [facility] Unit #: [id number] Loc: [place] [address] Phys: Dev Robertson MD Acct: [id number] Dis Date: Status: PRE ER PHONE #: [phone] Exam Date: 01/06/2019 1801 FAX #: [phone] Reason: CHEST PAIN EXAMS: CPT CODE: [id number] XR CHEST 1 V 88288 REASON FOR EXAM: CHEST PAIN Exam Order [...] Gresham MD CC: Dev Robertson MD; Ugo Love Technologist: Triny Baez) Trnscrd Date/Time/By: 01/06/2019 (1809) : By: [email or web address] Orig Print D/T: S: 01/06/2019 (1812) PAGE 1 Signed Report Sodium [id number] 11:38:00* Test Item Value Reference Range Interpretation Comments Sodium Level (test code = 2951-2) 142 136-145 [facility] HospitalPotassium Jlfmb4274-09-04 11:38:00* Test Item Value Reference Range Interpretation Comments Potassium Level (test code = 2823-3) 3.5 3.5-5.1 [facility] HospitalChloride [id number] 11:38:00* Test Item Value Reference Range Interpretation Comments Chloride Level (test code = 2075-0) 106 98-107 [facility] HospitalCarbon Dioxide [id number] 11:38:00* Test Item Value Reference Range Interpretation Comments Carbon Dioxide Level (test code = 2028-9) 26 22-29 [facility] HospitalAnion [id number] 11:38:00* Test Item Value Reference Range Interpretation Comments Anion Gap (test code = 72002-3) 13.5 8-16 [facility] HospitalBlood Urea [id number] 11:38:00* Test Item Value Reference Range Interpretation Comments Blood Urea Nitrogen (test code = 3094-0) 11 7-26 [facility] HospitalCreatinine2018-03-11 11:38:00* Test Item Value Reference Range Interpretation Comments Creatinine (test code = 2160-0) 0.66 0.57-1.11 [facility] HospitalBUN/Creatinine [id number] 11:38:00* Test Item Value Reference Range Interpretation Comments BUN/Creatinine Ratio (test code = 3097-3) 17 6-25 [facility] HospitalEstimat Glomerular Filtration Rate 2017-09-01 11:38:00* Test Item Value Reference Range Interpretation Comments Estimat Glomerular Filtration Rate (test code = 05446-4) 60- >60 Ranges were taken from the National Kidney Disease Education Program and the [facility] Foundation literature.Reference ranges:60 or greater: Fvtlgi74-98 ( for 3 consecutive months): Chronic kidney disease 15 or less: Kidney failureUT Health East Texas Carth[facility] HospitalGlucose Sqiam3556-47-27 11:38:00* Test Item Value Reference Range Interpretation Comments Glucose Level (test code = SRK2371) 79 74-118 [facility] HospitalCalcium Uouqi0530-92-31 11:38:00* Test Item Value Reference Range Interpretation Comments Calcium Level (test code = 33560-3) 9.1 8.4-10.2 [facility] HospitalMagnesium Knucr3724-47-27 11:38:00* Test Item Value Reference Range Interpretation Comments Magnesium Level (test code = 36840-0) 2.2 1.3-2.1 H [facility] HospitalTotal Olafkujpa8979-36-37 11:38:00* Test Item Value Reference Range Interpretation Comments Total Bilirubin (test code = 1975-2) -0.3 0.2-1.2 [facility] HospitalAspartate Amino Transf (AST/SGOT) 2017-09-01 11:38:00* Test Item Value Reference Range Interpretation Comments Aspartate Amino Transf (AST/SGOT) (test code = Aspartate Amino Transf (AST/SGOT)) 15 5-34 [facility] [place] [facility] HospitalAlanine Aminotransferase (ALT/SGPT) 2017-09-01 11:38:00* Test Item Value Reference Range Interpretation Comments Alanine Aminotransferase (ALT/SGPT) (test code = 1742-6) 26 0-55 [facility] HospitalTotal Gofvzup5956-99-55 11:38:00* Test Item Value Reference Range Interpretation Comments Total Protein (test code = 2885-2) 7.6 6.5-8.1 [facility] HospitalAlbumin2018-03-11 11:38:00* Test Item Value Reference Range Interpretation Comments Albumin (test code = 1751-7) 4.1 3.5-5.0 [facility] HospitalGlobulin2018-03-11 11:38:00* Test Item Value Reference Range Interpretation Comments Globulin (test code = 78670-5) 3.5 2.3-3.5 [facility] HospitalAlbumin/Globulin Xoclj0941-43-08 11:38:00 * Test Item Value Reference Range Interpretation Comments Albumin/Globulin Ratio (test code = 1759-0) 1.2 0.8-2.0 [facility] [place] [facility] HospitalAlkaline Mdszhsysdpz3104-88-64 11:38:00* Test Item Value Reference Range Interpretation Comments Alkaline Phosphatase (test code = 6768-6) 92 40-150 [facility]odium Tftpa2555-27-53 11:38:00* Test Item Value Reference Range Interpretation Comments Sodium Level (test code = 2951-2) 142 136-145 [facility] HospitalPotassium Mvcvg8491-39-89 11:38:00* Test Item Value Reference Range Interpretation Comments Potassium Level (test code = 2823-3) 3.5 3.5-5.1 [facility] HospitalChloride Kmfjo0394-95-91 11:38:00* Test Item Value Reference Range Interpretation Comments Chloride Level (test code = 2075-0) 106 98-107 [facility] [place] [facility] HospitalCarbon Dioxide Hcyel5930-62-37 11:38:00* Test Item Value Reference Range Interpretation Comments Carbon Dioxide Level (test code = 2028-9) 26 22-29 [facility] HospitalAnion Ezz9429-05-97 11:38:00* Test Item Value Reference Range Interpretation Comments Anion Gap (test code = 00589-0) 13.5 8-16 [facility] HospitalBlood Urea Fwwmqmhw2315-31-22 11:38:00* Test Item Value Reference Range Interpretation Comments Blood Urea Nitrogen (test code = 3094-0) 11 7-26 [facility] HospitalCreatinine2018-03-11 11:38:00* Test Item Value Reference Range Interpretation Comments Creatinine (test code = 2160-0) 0.66 0.57-1.11 [facility] [place] [facility] HospitalBUN/Creatinine Fndgb3434-72-47 11:38:00* Test Item Value Reference Range Interpretation Comments BUN/Creatinine Ratio (test code = 3097-3) 17 6-25 [facility] HospitalEstimat Glomerular Filtration Rate 2017-09-01 11:38:00* Test Item Value Reference Range Interpretation Comments Estimat Glomerular Filtration Rate (test code = 40687-6) 60- >60 Ranges were taken from the National Kidney Disease Education Program and the [facility] literature.Reference ranges:60 or greater: Goktbx36-91 ( for 3 consecutive months): Chronic kidney disease 15 or less: Kidney failureUT Health [facility] [place] [facility] HospitalGlucose Ykftf1894-22-35 11:38:00* Test Item Value Reference Range Interpretation Comments Glucose Level (test code = KFQ7824) 79 74-118 [facility] HospitalCalcium Vlgkx2836-02-82 11:38:00* Test Item Value Reference Range Interpretation Comments Calcium Level (test code = 94410-2) 9.1 8.4-10.2 [facility] HospitalMagnesium Qwbgm3498-70-44 11:38:00* Test Item Value Reference Range Interpretation Comments Magnesium Level (test code = 39356-3) 2.2 1.3-2.1 H [facility] HospitalTotal Iaqlsvbbb1142-28-04 11:38:00* Test Item Value Reference Range Interpretation Comments Total Bilirubin (test code = 1975-2) -0.3 0.2-1.2 [facility] [place] [facility] HospitalAspartate Amino Transf (AST/SGOT) 2017-09-01 11:38:00* Test Item Value Reference Range Interpretation Comments Aspartate Amino Transf (AST/SGOT) (test code = Aspartate Amino Transf (AST/SGOT)) 15 5-34 [facility] HospitalAlanine Aminotransferase (ALT/SGPT) 2017-09-01 11:38:00* Test Item Value Reference Range Interpretation Comments Alanine Aminotransferase (ALT/SGPT) (test code = 1742-6) 26 0-55 [facility] HospitalTotal Nwwywpu3026-80-97 11:38:00* Test Item Value Reference Range Interpretation Comments Total Protein (test code = 2885-2) 7.6 6.5-8.1 [facility] HospitalAlbumin2018-03-11 11:38:00* Test Item Value Reference Range Interpretation Comments Albumin (test code = 1751-7) 4.1 3.5-5.0 [facility] HospitalGlobulin2018-03-11 11:38:00* Test Item Value Reference Range Interpretation Comments Globulin (test code = 37657-9) 3.5 2.3-3.5 [facility] [place] [facility] HospitalAlbumin/Globulin Zghar9363-99-13 11:38:00 * Test Item Value Reference Range Interpretation Comments Albumin/Globulin Ratio (test code = 1759-0) 1.2 0.8-2.0 [facility] HospitalAlkaline Ananhajnqws0368-74-67 11:38:00* Test Item Value Reference Range Interpretation Comments Alkaline Phosphatase (test code = 6768-6) 92 40-150 [facility] HospitalUrine UYV5532-18-79 11:31:00* Test Item Value Reference Range Interpretation Comments Urine WBC (test code = 5821-4) NONE 0-5 [facility] HospitalUrine JIC3389-41-12 11:31:00* Test Item Value Reference Range Interpretation Comments Urine RBC (test code = 36525-7) NONE 0-5 [facility] HospitalUrine Nrsntklu8294-71-73 11:31:00* Test Item Value Reference Range Interpretation Comments Urine Bacteria (test code = 78971-5) NONE NONE [facility] HospitalUrine Epithelial Vzvni5271-06-84 11:31:00 * Test Item Value Reference Range Interpretation Comments Urine Epithelial Cells (test code = 70343-7) FEW NONE [facility] HospitalUrine OYY9443-16-32 11:31:00* Test Item Value Reference Range Interpretation Comments Urine WBC (test code = 5821-4) NONE 0-5 [facility] HospitalUrine ZQH5742-49-28 11:31:00* Test Item Value Reference Range Interpretation Comments Urine RBC (test code = 14058-4) NONE 0-5 [facility] HospitalUrine Uzmnxdqx5089-06-18 11:31:00* Test Item Value Reference Range Interpretation Comments Urine Bacteria (test code = 84675-1) NONE NONE [facility] HospitalUrine Epithelial Tfftt9879-46-44 11:31:00 * Test Item Value Reference Range Interpretation Comments Urine Epithelial Cells (test code = 82639-7) FEW NONE [facility] HospitalUrine Gxuwx2739-66-34 11:17:00* Test Item Value Reference Range Interpretation Comments Urine Color (test code = 5778-6) YELLOW YELLOW [facility] [place] [facility] HospitalUrine Vsqmeno1556-73-65 11:17:00* Test Item Value Reference Range Interpretation Comments Urine Clarity (test code = 94575-7) CLEAR CLEAR [facility] [place] [facility] HospitalUrine Specific Cwphvep7970-91-13 11:17:00 * Test Item Value Reference Range Interpretation Comments Urine Specific Benedict (test code = 5811-5) 1.010 1.010-1.02 5 [facility] HospitalUrine pZ0334-96-47 11:17:00* Test Item Value Reference Range Interpretation Comments Urine pH (test code = 22442-9) 8 5-7 H [facility] [place] [facility] HospitalUrine Leukocyte Bjobvdpu3689-11-31 11:17:00* Test Item Value Reference Range Interpretation Comments Urine Leukocyte Esterase (test code = 5799-2) NEGATIVE NEGATIVE [facility] HospitalUrine Bcvqezz4293-25-36 11:17:00* Test Item Value Reference Range Interpretation Comments Urine Nitrite (test code = 51776-5) NEGATIVE NEGATIVE [facility] HospitalUrine Xhtkydg1927-56-85 11:17:00* Test Item Value Reference Range Interpretation Comments Urine Protein (test code = 5804-0) NEGATIVE NEGATIVE [facility] [place] [facility] HospitalUrine Glucose (UA)2017-09-01 11:17:00* Test Item Value Reference Range Interpretation Comments Urine Glucose (UA) (test code = 2349-9) NEGATIVE NEGATIVE [facility] HospitalUrine Eajhkgv0840-55-49 11:17:00* Test Item Value Reference Range Interpretation Comments Urine Ketones (test code = 75254-6) NEGATIVE NEGATIVE [facility] HospitalUrine Pliekgdnbzxa8951-13-63 11:17:00* Test Item Value Reference Range Interpretation Comments Urine Urobilinogen (test code = 07590-0) 0.2 0.2-1 [facility] HospitalUrine Jovefylnf0692-17-27 11:17:00* Test Item Value Reference Range Interpretation Comments Urine Bilirubin (test code = 1978-6) NEGATIVE NEGATIVE [facility] HospitalUrine Bdlpr9482-12-39 11:17:00* Test Item Value Reference Range Interpretation Comments Urine Blood (test code = 02662-0) NEGATIVE NEGATIVE [facility] HospitalUrine Plydk2275-56-01 11:17:00* Test Item Value Reference Range Interpretation Comments Urine Color (test code = 5778-6) YELLOW YELLOW [facility] HospitalUrine Gelieit9333-07-49 11:17:00* Test Item Value Reference Range Interpretation Comments Urine Clarity (test code = 80732-9) CLEAR CLEAR [facility] [place] [facility] HospitalUrine Specific Aabeawo2606-16-26 11:17:00 * Test Item Value Reference Range Interpretation Comments Urine Specific Benedict (test code = 5811-5) 1.010 1.010-1.02 5 [facility] HospitalUrine vQ0557-19-77 11:17:00* Test Item Value Reference Range Interpretation Comments Urine pH (test code = 76250-7) 8 5-7 H [facility] [place] [facility] HospitalUrine Leukocyte Bedmrahr2416-71-24 11:17:00* Test Item Value Reference Range Interpretation Comments Urine Leukocyte Esterase (test code = 5799-2) NEGATIVE NEGATIVE [facility] HospitalUrine Ywrrrcu3659-27-97 11:17:00* Test Item Value Reference Range Interpretation Comments Urine Nitrite (test code = 29534-3) NEGATIVE NEGATIVE [facility] HospitalUrine Uvqgwse4021-91-75 11:17:00* Test Item Value Reference Range Interpretation Comments Urine Protein (test code = 5804-0) NEGATIVE NEGATIVE [facility] [place] [facility] HospitalUrine Glucose (UA)2017-09-01 11:17:00* Test Item Value Reference Range Interpretation Comments Urine Glucose (UA) (test code = 2349-9) NEGATIVE NEGATIVE [facility] [place] [facility] HospitalUrine Fgjnlrv2092-93-80 11:17:00* Test Item Value Reference Range Interpretation Comments Urine Ketones (test code = 43695-4) NEGATIVE NEGATIVE [facility] HospitalUrine Kncmfqhgvshr5434-46-85 11:17:00* Test Item Value Reference Range Interpretation Comments Urine Urobilinogen (test code = 14630-1) 0.2 0.2-1 [facility] [place] [facility] HospitalUrine Nrczmwsqd6820-03-00 11:17:00* Test Item Value Reference Range Interpretation Comments Urine Bilirubin (test code = 1978-6) NEGATIVE NEGATIVE [facility] HospitalUrine Ycyxm5571-84-37 11:17:00* Test Item Value Reference Range Interpretation Comments Urine Blood (test code = 16885-1) NEGATIVE NEGATIVE [facility] [place] [facility] HospitalWhite Blood Gwwky2577-65-49 11:16:00* Test Item Value Reference Range Interpretation Comments White Blood Count (test code = 6690-2) 8.54 4.8-10.8 [facility] [place] [facility] HospitalRed Blood Pxjad8594-65-79 11:16:00* Test Item Value Reference Range Interpretation Comments Red Blood Count (test code = 789-8) 4.17 3.6-5.1 [facility] [place] [facility] HospitalHemoglobin2018-03-11 11:16:00* Test Item Value Reference Range Interpretation Comments Hemoglobin (test code = 79278-9) 13.0 12.0-16.0 [facility] [place] [facility] HospitalHematocrit2018-03-11 11:16:00* Test Item Value Reference Range Interpretation Comments Hematocrit (test code = 4544-3) 39.4 34.2-44.1 [facility] [place] [facility] HospitalMean Corpuscular Xlwwvy2771-35-14 11:16:00* Test Item Value Reference Range Interpretation Comments Mean Corpuscular Volume (test code = 787-2) 94.5 81-99 [facility] HospitalMean Corpuscular Tntemkhmwj2759-37-66 11:16:00* Test Item Value Reference Range Interpretation Comments Mean Corpuscular Hemoglobin (test code = 785-6) 31.2 28-32 [facility] HospitalMean Corpuscular Hemoglobin Concent 2017-09-01 11:16:00* Test Item Value Reference Range Interpretation Comments Mean Corpuscular Hemoglobin Concent (test code = 786-4) 33.0 31-35 [facility] [place] [facility] HospitalRed Cell Distribution Afkil9314-70-28 11:16:00* Test Item Value Reference Range Interpretation Comments Red Cell Distribution Width (test code = 15108-4) 13.3 11.7 -14.4 [facility] [place] [facility] HospitalPlatelet Mqffb9676-67-39 11:16:00* Test Item Value Reference Range Interpretation Comments Platelet Count (test code = 777-3) 396 140-360 H [facility] [place] [facility] HospitalNeutrophils (%) (Auto)2017-09-01 11:16:00 * Test Item Value Reference Range Interpretation Comments Neutrophils (%) (Auto) (test code = 14482-0) 47.4 38.7-80.0 [facility] [place] [facility] HospitalLymphocytes (%) (Auto)2017-09-01 11:16:00 * Test Item Value Reference Range Interpretation Comments Lymphocytes (%) (Auto) (test code = 736-9) 43.3 18.0-39.1 H [facility] [place] [facility] HospitalMonocytes (%) (Auto)2017-09-01 11:16:00* Test Item Value Reference Range Interpretation Comments Monocytes (%) (Auto) (test code = 5905-5) 8.4 4.4-11.3 [facility] [place] [facility] HospitalEosinophils (%) (Auto)2017-09-01 11:16:00 * Test Item Value Reference Range Interpretation Comments Eosinophils (%) (Auto) (test code = 713-8) 0.2 0.0-6.0 [facility] [place] [facility] HospitalBasophils (%) (Auto)2017-09-01 11:16:00* Test Item Value Reference Range Interpretation Comments Basophils (%) (Auto) (test code = 706-2) 0.6 0.0-1.0 [facility] [place] [facility] HospitalIM GRANULOCYTES %2017-09-01 11:16:00* Test Item Value Reference Range Interpretation Comments IM GRANULOCYTES % (test code = IM GRANULOCYTES %) 0.1 0.0- 1.0 [facility] [place] [facility] HospitalNeutrophils # (Auto)2017-09-01 11:16:00* Test Item Value Reference Range Interpretation Comments Neutrophils # (Auto) (test code = 751-8) 4.0 2.1-6.9 [facility] [place] [facility] HospitalLymphocytes # (Auto)2017-09-01 11:16:00* Test Item Value Reference Range Interpretation Comments Lymphocytes # (Auto) (test code = 98098-0) 3.7 1.0-3.2 H [facility] [place] [facility] HospitalMonocytes # (Auto)2017-09-01 11:16:00* Test Item Value Reference Range Interpretation Comments Monocytes # (Auto) (test code = 742-7) 0.7 0.2-0.8 [facility] [place] [facility] HospitalEosinophils # (Auto)2017-09-01 11:16:00* Test Item Value Reference Range Interpretation Comments Eosinophils # (Auto) (test code = 711-2) 0.0 0.0-0.4 [facility] [place] [facility] HospitalBasophils # (Auto)2017-09-01 11:16:00* Test Item Value Reference Range Interpretation Comments Basophils # (Auto) (test code = 704-7) 0.1 0.0-0.1 [facility] [place] [facility] HospitalAbsolute Immature Granulocyte (auto 2017-09-01 11:16:00* Test Item Value Reference Range Interpretation Comments Absolute Immature Granulocyte (auto (maggie t code = Absolute Immature Granulocyte (auto) 0.01 0-0.1 [facility] [place] [facility] HospitalWhite Blood Clabz3195-56-31 11:16:00* Test Item Value Reference Range Interpretation Comments White Blood Count (test code = 6690-2) 8.54 4.8-10.8 [facility] [place] [facility] HospitalRed Blood Elzhy2649-72-56 11:16:00* Test Item Value Reference Range Interpretation Comments Red Blood Count (test code = 789-8) 4.17 3.6-5.1 [facility] [place] [facility] HospitalHemoglobin2018-03-11 11:16:00* Test Item Value Reference Range Interpretation Comments Hemoglobin (test code = 19072-9) 13.0 12.0-16.0 [facility] [place] [facility] HospitalHematocrit2018-03-11 11:16:00* Test Item Value Reference Range Interpretation Comments Hematocrit (test code = 4544-3) 39.4 34.2-44.1 [facility] HospitalMean Corpuscular Rmosry3408-13-59 11:16:00* Test Item Value Reference Range Interpretation Comments Mean Corpuscular Volume (test code = 787-2) 94.5 81-99 [facility] HospitalMean Corpuscular Qoiuigtrno7379-62-04 11:16:00* Test Item Value Reference Range Interpretation Comments Mean Corpuscular Hemoglobin (test code = 785-6) 31.2 28-32 [facility] HospitalMean Corpuscular Hemoglobin Concent 2017-09-01 11:16:00* Test Item Value Reference Range Interpretation Comments Mean Corpuscular Hemoglobin Concent (test code = 786-4) 33.0 31-35 [facility] [place] [facility] HospitalRed Cell Distribution Qlasp4271-36-82 11:16:00* Test Item Value Reference Range Interpretation Comments Red Cell Distribution Width (test code = 58971-6) 13.3 11.7 -14.4 [facility] HospitalPlatelet Hiqhe5758-88-55 11:16:00* Test Item Value Reference Range Interpretation Comments Platelet Count (test code = 777-3) 396 140-360 H [facility] [place] [facility] HospitalNeutrophils (%) (Auto)2017-09-01 11:16:00 * Test Item Value Reference Range Interpretation Comments Neutrophils (%) (Auto) (test code = 80528-6) 47.4 38.7-80.0 [facility] [place] [facility] HospitalLymphocytes (%) (Auto)2017-09-01 11:16:00 * Test Item Value Reference Range Interpretation Comments Lymphocytes (%) (Auto) (test code = 736-9) 43.3 18.0-39.1 H [facility] [place] [facility] HospitalMonocytes (%) (Auto)2017-09-01 11:16:00* Test Item Value Reference Range Interpretation Comments Monocytes (%) (Auto) (test code = 5905-5) 8.4 4.4-11.3 [facility] [place] [facility] HospitalEosinophils (%) (Auto)2017-09-01 11:16:00 * Test Item Value Reference Range Interpretation Comments Eosinophils (%) (Auto) (test code = 713-8) 0.2 0.0-6.0 [facility] [place] [facility] HospitalBasophils (%) (Auto)2017-09-01 11:16:00* Test Item Value Reference Range Interpretation Comments Basophils (%) (Auto) (test code = 706-2) 0.6 0.0-1.0 [facility] [place] [facility] HospitalIM GRANULOCYTES %2017-09-01 11:16:00* Test Item Value Reference Range Interpretation Comments IM GRANULOCYTES % (test code = IM GRANULOCYTES %) 0.1 0.0- 1.0 [facility] [place] [facility] HospitalNeutrophils # (Auto)2017-09-01 11:16:00* Test Item Value Reference Range Interpretation Comments Neutrophils # (Auto) (test code = 751-8) 4.0 2.1-6.9 [facility] [place] [facility] HospitalLymphocytes # (Auto)2017-09-01 11:16:00* Test Item Value Reference Range Interpretation Comments Lymphocytes # (Auto) (test code = 06285-2) 3.7 1.0-3.2 H [facility] [place] [facility] HospitalMonocytes # (Auto)2017-09-01 11:16:00* Test Item Value Reference Range Interpretation Comments Monocytes # (Auto) (test code = 742-7) 0.7 0.2-0.8 [facility] [place] [facility] HospitalEosinophils # (Auto)2017-09-01 11:16:00* Test Item Value Reference Range Interpretation Comments Eosinophils # (Auto) (test code = 711-2) 0.0 0.0-0.4 [facility] [place] [facility] HospitalBasophils # (Auto)2017-09-01 11:16:00* Test Item Value Reference Range Interpretation Comments Basophils # (Auto) (test code = 704-7) 0.1 0.0-0.1 [facility] HospitalAbsolute Immature Granulocyte (auto 2017-09-01 11:16:00* Test Item Value Reference Range Interpretation Comments Absolute Immature Granulocyte (auto (maggie t code = Absolute Immature Granulocyte (auto) 0.01 0-0.1 [facility] Uvlxouz4332-97-88 17:09:00* Test Item Value Reference Range Interpretation Comments Bedside Glucose (test code = 56351-5) 88 70-120 Meter ID: [id number] [facility] Glucose 2017-06-11 17:09:00* Test Item Value Reference Range Interpretation Comments Bedside Glucose (test code = 01970-0) 88 70-120 Meter ID: [id number] [facility] [place] [facility] HospitalCreatine Kinase MB 2017-05-11 18:46:00* Test Item Value Reference Range Interpretation Comments Creatine Kinase MB (test code = 51350-5) 1.20 0.00-5.00 [facility] HospitalTrs[facility] hospitalnin K8049-87-41 18:46:00* Test Item Value Reference Range Interpretation Comments Troponin I (test code = YFJ2911) 0.012 0-0.300 [facility] HospitalCreatine Kinase UX3751-76-84 18:46:00* Test Item Value Reference Range Interpretation Comments Creatine Kinase MB (test code = 14077-7) 1.20 0.00-5.00 [facility] HospitalTrs[facility] hospitalnin N1303-73-84 18:46:00* Test Item Value Reference Range Interpretation Comments Troponin I (test code = DOI4222) 0.012 0-0.300 [facility] HospitalCreatine Zziixh0303-34-90 18:39:00* Test Item Value Reference Range Interpretation Comments Creatine Kinase (test code = 2157-6) 59 29-168 [facility] HospitalLipase2017-11-18 18:39:00* Test Item Value Reference Range Interpretation Comments Lipase (test code = 3040-3) 23 8-78 [facility] HospitalCreatine Gqxqpa2474-92-86 18:39:00* Test Item Value Reference Range Interpretation Comments Creatine Kinase (test code = 2157-6) 59 29-168 [facility] [place] [facility] HospitalLipase2017-11-18 18:39:00* Test Item Value Reference Range Interpretation Comments Lipase (test code = 3040-3) 23 8-78 [facility] [place] [facility] HospitalUrine Transitional Epithelial Cells 2017-02-25 15:51:00* Test Item Value Reference Range Interpretation Comments Urine Transitional Epithelial Cells (test code = 8249-5) FEW NONE H [facility] HospitalUrine Transitional Epithelial Cells 2017-02-25 15:51:00* Test Item Value Reference Range Interpretation Comments Urine Transitional Epithelial Cells (test code = 8249-5) FEW NONE H [facility] HospitalCHEM VVLVD0325-55-74 21:29:00490Lacrflyy HermannCHEM WQRML9394-61-66 21:29:000.5[facility] HermannCHEM UTDPF5202-32-71 18:17:0037[facility] XpzaqjfQPDJDMKDABJV2000-05-29 18:17:0010.5[facility] DCNCAETWLALR0871-68-99 18:17:0014[facility] MrczwouEOJJHNGXNIVP8311-71-83 18:17:00 3.6[facility] CcwanmqALORNVQMGYDZ7435-44-55 18:17:001.0[facility] LKMYNDZZYKBE8242-18-43 18:17:07116Kvetxoit GrovktnVCQXTRLWFELO4137-17-48 18:17:000.1[facility] YgjzxnwEOREPYPYGZAV6747-34-75 18:17:76160Rxexvmpo Ardsley DTJJIUWZPXXF0519-13-18 18:17:40359Xwkyjtwo EyloavaSXZGZRYPLDAA4040-29-24 18:17:000.44[facility] LdsylgzSYHZZKISXDKQ6424-19-85 18:17:0085[facility] OUQRYSGHNEYU2616-52-28 18:17:006[facility] VzzchwaAVHGUAWJKEOW2015-77-06 18:17:00 27[facility] YjzrjctHMVZDHAZMJWZ8734-29-76 18:17:90871Jlussdtb HermannELECTROLYTES 2015-11-28 18:17:007.1[facility] IttgcaaCYAYNVOPXQWK8602-26-77 18:17:008.3[facility] QnvzxnnTAXAYZMUGIPL8542-32-00 18:17:003.5[facility] FszjhlrPAKIKCLVDQHE7128-61-36 18:17:0036[facility] PyrgoudXYYDHCCCKGJT0829-34-71 18:17:003.5[facility] DLTVMFEJOKMG1788-24-90 18:17:0016[facility] QkussdjTPIMWLEABDOOT6765-91-77 18:17:004.8[facility] QznifwhJUEDJWFQSI1303-70-37 18:17:003.1[facility] LCIMCIRTGS4666-29-47 18:17:0047.1[facility] DinkycxQVAOGOGLCK7481-03-08 18:17:00 6.9[facility] KfedcplYIJWITNWDW4112-49-18 18:17:000.1[facility] HermannHEMATOLOGY 2015-11-28 18:17:000.5[facility] RqugpvfLYAEZLHRCE8356-71-70 18:17:000.6[facility] VkdwxovGLJFQEXVGJ7461-60-17 18:17:002.1[facility] HudvmqsNNSKECXSNB2662-23-10 18:17:002.9[facility] FlwuifzOOUKFPOWWD6353-96-32 18:17:0043.3[facility] ZLARYJCCPW9959-56-96 18:17:009.0[facility] JwkdggePLNHFRRFEG6134-93-72 18:17:00 32.7[facility] VtuqpomEMPMEWPMHL8829-46-19 18:17:0041.2[facility] HermannHEMATOLOGY 2015-11-28 18:17:0097.1[facility] SwlgqmyLGTFVHMAOI3647-37-22 18:17:0013.1[facility] HjeqvjuLAUORDEPZS7737-51-66 18:17:25818Wazkoeyb YvdymjhGKCSIUCJAZ8349-14-74 18:17:00* Test Item Value Reference Range Interpretation Comments MCH (test code = MCH) 31.7 pg 27.0-31.0 [facility] UzoswkuVGTNCMUSRE1794-88-17 18:17:004.24[facility] HermannHEMATOLOGY 2015-11-28 18:17:0013.5[facility] FwunrnrBBKRNAOKSP1286-96-22 18:17:006.7[facility] HermannSPECIAL TMPIIBXBY9836-59-30 18:17:006.5[facility] HermannHEMATOLOGY 2015-09-26 20:31:0023[facility] DaitvukNSKESCITAN2962-43-14 20:31:00<10[facility] XrvfmaeZKBCQWWHIU2780-88-32 20:31:00Negative (09/26/15 3:31 PM)[facility] WNCCESSQRG0606-95-86 20:31:00Negative (09/26/15 3:31 PM)[facility] HermannIMMUNOLOGY 2015-09-26 20:31:00<0.2[facility] FyyxeexUMWXTTWIGZ1949-21-99 20:31:00Negative (09/26/15 3:31 PM)[facility] HermannSPECIAL RLECYSZFZ8958-81-70 15:31:005.6[facility] HermannCHEM KXLEJ4133-11-17 15:21:0093[facility] HermannCHEM NCIIF8779-33-26 15:21:0010[facility] HermannCHEM FHORT6176-52-07 15:21:001.0[facility]ann[facility] [id number] 15:21:0026[facility]annCHEM [id number] 15:21:0019 [facility] [id number] 15:21:003.6[facility]annCHEM PANEL 2015-05-06 15:21:007.3[facility]annCHEM [id number] 15:21:26412Inhwkjgg HermannCHEM [id number] 15:21:000.4[facility]annCHEM [id number] 15:21:000.57[facility]ann[facility] [id number] 15:21:0011[facility]annCHEM [id number] 15:21:007.9[facility]annCHE[facility] [id number] 15:21:003.7 [facility] [id number] 15:21:0030[facility]annCHEM PANEL 2015-05-06 15:21:008.8[facility]annCHEM [id number] 15:21:39664Srkmizdo HermannCHEM [id number] 15:21:003.9[facility]annCHEM [id number] 15:21:74971Vqvvsjvw HermannCHEM [id number] 15:21:0095[facility] B[facility]IN WO [facility] [address] [address] Patient Name: GALA FITZPATRICK MR #: [id number] : 1955 Age/Sex: 62/F Req #: [id number] Adm Physician: Ordered by: YOLANDA RICE NP Report #: [id number] Location: Room/Bed: Procedure: [id number] CT/CT BRAIN WO Exam Date: 09/01/17 Exam Time: 1118 REPORT STATUS: Signed [...] ed By: KOBE RIGGS MD on 09/01/17 143 Transcribed By: MARLEN on 143 COPY TO: YOLANDA RICE NP HEPTOBILIARY W PHARM [place] [address] Patient Name: GALA FITZPATRICK MR #: [id number] : 0 1955 Age/Sex: 61/F Req #: [id number] Adm Physician: Ordered by: BUD YEPEZ MD Report #: [id number] Location: [place] Room/Bed : Procedure: [id number] NM/HEPTOBILIARY W PHARM Exam Date: 06/10/17 Exam [...] 1:05 PM Dictated By: ERI DANIEL MD Electronica lly Signed By: ERI DANIEL MD on 06/10/17 1305 Transcribed By: MARLEN on 06/10 1305 COPY TO: BUD YEPEZ MD CT ABDOMEN/PELVIS [place] [address] Patient Name: GALA FITZPATRICK MR #: [id number] : 0 1955 Age/Sex: 61/F Req #: [id number] Adm Physician: Ordered by: SONIYA HEREDIA MD Report #: [id number] Location: ER Room/Be d: Procedure: [id number] CT/CT ABDOMEN/PELVIS W Exam Date: 05/11/17 Exam [...] or solid mass lesions. No stones. GI TRACT : No abnormal distention, wall thickening, or evidence [...] men or pelvis. Signed by: Dr Ben mAos MD on 05/11/2017 9:12 PM Dictated By: BEN AMOS MD 11 COPY TO: SONIYA HEREDIA MD CT ABDOMEN/PELVIS [place] [address] Patient Name: GALA FITZPATRICK MR #: [id number] : 1955 Age/Sex: 61/F Req #: [id number] Adm Physician: Ordered by: SONIYA HEREDIA MD Report #: [id number] Location: ER Room/Bed: Procedure: [id number] CT/CT ABDOMEN/PELVIS W Exam Date: 02/25/17 Exam [...] TETO JANSEN MD 14 Tr anscribed By: MRALEN on 02/25/172014 COPY TO: SONIYA HEREDIA MD
--- NOTE | 2020-03-09 13:16 | NUR ---
[facility]ASOUND STATES 45 MIN ETA; PT UPDATED WITH PLAN OF CARE AND ETA. 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
--- NOTE | 2020-03-09 13:55 | NUR ---
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
[2020-03-09 14:08] LABS: BASOPHILS % 0.3 % (0.0-1.0); EOSINOPHILS # (AUTO) 0.1 (0.0-0.4); EOSINOPHILS % 0.6 % (0.0-6.0); HEMATOCRIT 43.2 % (34.2-44.1); HEMOGLOBIN 13.9 g/dL (12.0-16.0); LYMPHOCYTES % 33.4 % (18.0-39.1); MEAN CORPUSCULAR HGB CONC 32.2 g/dL (31-35); MEAN CORPUSCULAR VOLUME 96.4 fL (81-99); MONOCYTES # (AUTO) 0.6 (0.2-0.8); MONOCYTES % 7.1 % (4.4-11.3); NEUTROPHILS # (AUTO) 5.3 (2.1-6.9); NEUTROPHILS % 58.2 % (38.7-80.0); PLATELET COUNT 400 x10e3/uL (140-360); RED BLOOD COUNT 4.48 x10e6/uL (3.6-5.1); RED CELL DISTRIBUTION WIDTH 13.6 % (11.7-14.4)
--- NOTE | 2020-03-09 14:25 | Emergency Department Note ---
History of Present Illnes History of Present Illness Chief Complaint: Abdominal Complaints History of Present Illness This is a 64 year old female . Chief Complaint Comment PT HAD BIOPSY ON CERVIX LAST SATURDAY AT DR ESTEVEZ'S OFF TO R/O CANCER. pT STATES SHE HAS HAD INTERMITTANT VAG BLEEDING SINCE THEN. TODAY, PT HAS PAIN TO LOWER BACK AND ABD AND BEHIND BOTH LEGS. PT IS AAOX4, AMBULATORY STEADY GAIT, NO N/V/D/F. PT STATES SHE HAS USED 3 PANTY LINERS TODAY. PT DENIES ANY UTI S/S. PT WENT INTO [place] AGE 50. . PT VERY PLEASANT AND COOPERATIVE. Historian: Patient Onset (how long ago): day(s) (1) Location: suprapubic Quality: dull Radiation: Denies non-radiation, Denies back, Denies neck, Denies extremity, Denies abdomen, Denies periumbilical, Denies flank, Denies proximal, Denies distal, Denies other Severity: moderate Onset quality: gradual Progression: unchanged Chronicity: new Context: Denies recent illness, Denies recent surgery, Denies recent immobilization, Denies recent travel, Denies trauma/injury, Denies new medications, Denies hx of DVT/PE, Denies non-compliance w/ medications, Denies other Relieving factors: none Exacerbating factors: none Associated symptoms: Reports denies other symptoms; Denies confusion, Denies chest pain, Denies cough, Denies diaphoresis, Denies fever/chills, Denies headaches, Denies loss of appetite, Denies malaise, Denies nausea/vomiting, Denies rash, Denies seizure, Denies shortness of breath, Denies syncope, Denies weakness, Denies other Treatments prior to arrival: none Past Medical/Family History Physician Review I have reviewed the patient's past medical and family history. Any updates have been documented here. Past Medical History Recent Fever: No Clinical Suspicion of Infectio: No New/Unexplained Change in Ment: No Past Medical History: Hypertension, Diabetes, Asthma, UTI's, Anxiety, GERD, Hyperlipedemia Other Medical History: DIVERTICULITIS Past Surgical History: None Social History Smoking Cessation: Unknown if ever smoked Counseling Performed: No Alcohol Use: Occasional Any Illegal Drug Use: No Physically hurt or threatened: No Other Last Tetanus: 2017 Any Pre-Existing Lines (PICC,: No Review of Systems Review of Systems Constitutional: Reports no symptoms EENTM: Reports no symptoms Cardiovascular: Reports no symptoms Respiratory: Reports no symptoms Gastrointestinal: Reports no symptoms Genitourinary: Reports as per HPI Musculoskeletal: Reports no symptoms Integumentary: Reports no symptoms Neurological: Reports no symptoms Psychological: Reports no symptoms Endocrine: Reports no symptoms Hematological/Lymphatic: Reports no symptoms Physical Exam Related Data Allergies: Coded Allergies: aspirin (Verified Allergy, Unknown, Swelling. itching, 02/25/17) Triage Vital Signs Vital Signs Date Time Temp Pulse Resp B/P (MAP) Pulse Ox O2 Delivery O2 Flow Rate FiO2 03/09/20 12:41 98.6 101 20 162/95 99 Room Air Vital signs reviewed: Yes Physical Exam CONSTITUTIONAL Constitutional: Present well-developed, Present well-nourished HENT HENT: Present normocephalic, Present atraumatic, Present oropharynx clear/moist, Present nose normal HENT L/R: Present left ext ear normal, Present right ext ear normal EYES Eyes: Reports PERRL, Reports conjunctivae normal NECK Neck: Present ROM normal PULMONARY Pulmonary: Present effort normal, Present breath sounds normal CARDIOVASCULAR Cardiovascular: Present regular rhythm, Present heart sounds normal, Present capillary refill normal, Present normal rate GASTROINTESTINAL Abdominal: Present soft, Present bowel sounds normal, Present tender (suprapubic) GENITOURINARY Genitourinary: Present exam deferred SKIN Skin: Present warm, Present dry MUSCULOSKELETAL Musculoskeletal: Present ROM normal NEUROLOGICAL Neurological: Present alert, Present oriented x 3, Present no gross motor or sensory deficits PSYCHOLOGICAL Psychological: Present mood/affect normal, Present judgement normal Results Laboratory Result Diagram: 03/09/20 1250 Laboratory Laboratory Tests Test 03/09/20 12:50 White Blood Count 9.06 x10e3/uL (4.8-10.8) Red Blood Count 4.48 x10e6/uL (3.6-5.1) Hemoglobin 13.9 g/dL (12.0-16.0) Hematocrit 43.2 % (34.2-44.1) Mean Corpuscular Volume 96.4 fL (81-99) Mean Corpuscular Hemoglobin 31.0 pg (28-32) Mean Corpuscular Hemoglobin Concent 32.2 g/dL (31-35) Red Cell Distribution Width 13.6 % (11.7-14.4) Platelet Count 400 x10e3/uL (140-360) Neutrophils (%) (Auto) 58.2 % (38.7-80.0) Lymphocytes (%) (Auto) 33.4 % (18.0-39.1) Monocytes (%) (Auto) 7.1 % (4.4-11.3) Eosinophils (%) (Auto) 0.6 % (0.0-6.0) Basophils (%) (Auto) 0.3 % (0.0-1.0) Neutrophils # (Auto) 5.3 (2.1-6.9) Lymphocytes # (Auto) 3.0 (1.0-3.2) Monocytes # (Auto) 0.6 (0.2-0.8) Eosinophils # (Auto) 0.1 (0.0-0.4) Basophils # (Auto) 0.0 (0.0-0.1) Absolute Immature Granulocyte (auto 0.04 x10e3/uL (0-0.1) Lab results reviewed: Yes Imaging Imaging results reviewed: Yes Assessment & Plan Medical Decision Making MDM uti cystitis Reassessment Reassessment better Assessment & Plan Final Impression: (1) Abdominal pain, suprapubic (2) Cystitis, acute Depart Disposition: HOME, SELF-CARE Last Vital Signs Date Time Temp Pulse Resp B/P (MAP) Pulse Ox O2 Delivery O2 Flow Rate FiO2 03/09/20 13:05 86 16 155/77 100 Room Air 03/09/20 12:41 98.6 Home Meds Active Scripts Methylprednisolone (MEDROL) 4 Mg Tablet, 1 PKT PO . DIRECTED for for joint pain, #1 PACKET 0 Refills MEDROL DOSE PACK DIRECTED Prov:HENRY CAT MD 11/21/19 Tramadol Hcl (ULTRAM) 50 Mg Tablet, 1 TAB PO Q6H PRN for pain, #20 TAB 0 Refills DO NOT take and drive or operate machinery. Prov:HENRY CAT MD 11/21/19 Reported Medications Sucralfate (SUCRALFATE) 1 Gm Tablet, 1 GM PO ACHS, TAB 08/26/19 Promethazine Hcl (PROMETHAZINE HCL) 25 Mg Tablet, 25 MG PO Q12H, TAB 08/26/19 Phenazopyridine Hcl (PHENAZOPYRIDINE HCL) 100 Mg Tablet, 200 MG PO Q8H for 2 Days, TAB 08/26/19 Topiramate (TOPIRAMATE) 100 Mg Tablet, 50 MG PO DAILY, #30 TAB 08/07/19 Dicyclomine Hcl (DICYCLOMINE HCL) 20 Mg Tablet, 10 MG PO TID, TAB 08/07/19 Atorvastatin Calcium (LIPITOR) 20 Mg Tablet, 40 MG PO DAILY, #30 TAB 08/07/19 Pantoprazole Sodium* (PROTONIX) 40 Mg Tablet.dr, 40 MG PO BID, TAB 08/07/19 Paroxetine Hcl (PAROXETINE HCL) 20 Mg Tablet, 20 MG PO DAILY, #30 TAB 07/15/18 Nebivolol Hcl (BYSTOLIC) 10 Mg Tablet, 20 MG PO DAILY, TAB 07/15/18 [Trulicity] No Conflict Check, 1.5 MG SC WEEKLY ON 07/15/18 EDGARDO BECKHAM MD Mar 09, 2020 14:25
[2020-03-09] MEDS ORDERED: MACROBID 100 M100 MG PO (14:26)
[2020-03-09] MEDS ORDERED: CEFTRIAXONE SOD 1 GM VIAL ONE (14:35)
--- NOTE | 2020-03-09 14:57 | Diagnostic Imaging Report ---
Exam: Pelvic ultrasound. History: Vaginal bleeding Comparison: CT abdomen and pelvis of 08/07/2019 Findings: Transabdominal and endovaginal sonographic evaluation of the pelvis. The uterus is anteverted in position, measuring 5.6 x 3.3 x 3.5cm. No fibroids identified. Endometrial stripe thickness is 6 mm . The right ovary is not visualized due to overlying bowel gas. The left ovary measures 1.7 x 1.9 x 1.5 cm and appears unremarkable. No free fluid in the pelvis. Impression: Nonvisualization of the right ovary due to overlying bowel gas. Otherwise, unremarkable pelvic ultrasound. Signed by: Fahad Chino MD on 03/09/2020 2:54 PM
[2020-03-09] MEDS ORDERED: CEFTRIAXONE SOD 1 GM VIAL IV ONE (15:00)
== END 2020-03-09 14:50 | disposition home or self-care (01) ==
LOC: FSED 12:55
DX: R10.30 Lower abdominal pain, unspecified (principal); N30.00 Acute cystitis without hematuria; M54.5 Low back pain; E11.65 Type 2 diabetes mellitus with hyperglycemia; I10 Essential (primary) hypertension; E78.5 Hyperlipidemia, unspecified
CPT/HCPCS: 36415; 76856 ×2; 85025; 87086; 87186; 99284; J0696; 80053; 81003

== ENCOUNTER 2020-10-31 18:08 | Inpatient (IN) | payer BC, MEDICARE ==
[~2020-10-31] VITALS: Ht 152.4 cm; Wt 73.5 kg
[~2020-10-31 18:08] MED LIST changes: +MACROBID 100 M100 MG PO
[2020-10-31] MEDS ORDERED: SODIUM CHLORIDE 0.9% 1000ML 1,000 ML IV STA (18:27)
[2020-10-31] MEDS ORDERED: MORPHINE SULFATE INJ 4 MG/ML INJ 1ML IV STA (18:27)
[2020-10-31] MEDS ORDERED: FAMOTIDINE 20 MG/2 ML VIAL IV ONE (18:30)
[2020-10-31] MEDS ORDERED: CEFTRIAXONE SOD 1 GM VIAL IV ONE (18:30)
[2020-10-31] MEDS ORDERED: ONDANSETRON HCL INJ 2MG/ML 2ML 2 MG/ML VIAL IV ONE (18:30)
[2020-10-31] MEDS ORDERED: SODIUM CHLORIDE 0.9% 50ML 50 ML ONE (18:42)
[2020-10-31] MEDS ORDERED: IOPAMIDOL 370 MG/ML 200 ML INFUS..BTL INJ ONE (18:43)
[2020-10-31] MEDS ORDERED: ACETAMINOPHEN 325 MG TAB PO ONE (18:45)
[2020-10-31] MEDS ORDERED: SODIUM CHLORIDE 0.9% 1000ML 1,000 ML ONE (18:49)
[2020-10-31] MEDS ORDERED: CEFTRIAXONE SOD 1 GM VIAL ONE (18:50)
[2020-10-31] MEDS ORDERED: CEFTRIAXONE SOD 1 GM in SODIUM CHLORIDE 0.9% 50ML 50 ML IV ONE (19:10)
[2020-10-31] MEDS ORDERED: METRONIDAZOLE 500MG/NS 100ML 100 ML IV ONE ×2 (19:45→20:34)
[2020-10-31] MEDS ORDERED: DIPHENHYDRAMINE HCL INJ 50 MG/ML VIAL IV PRN (21:30)
[2020-10-31] MEDS ORDERED: ENALAPRILAT IV INJ 1.25 MG/ML VIAL IV PRN (21:30)
[2020-10-31] MEDS ORDERED: CLONIDINE HCL 0.1 MG TAB PO PRN (21:30)
[2020-10-31 23:55] VITALS: BP 123/73
[2020-10-31] MEDS: MORPHINE SULFATE INJ 4 MG/ML INJ 1ML IV PRN (23:56)
[2020-10-31] MEDS: SODIUM CHLORIDE 0.9% 1000ML 1,000 ML IV SCH (23:56)
[2020-11-01] VITALS (9 sets, daily range): BP systolic 102–125; BP diastolic 57–76
[2020-11-01] MEDS ORDERED: AMPICILLIN SOD/SULBACTAM 1.5 GM VIAL IV SCH
[2020-11-01] MEDS: METRONIDAZOLE 500MG/NS 100ML IV SCH ×5 (00:31→20:55)
[2020-11-01] MEDS: SODIUM CHLORIDE 0.9% 1000ML 1,000 ML IV SCH ×2 (00:32→17:21)
[2020-11-01] MEDS ORDERED: AMPICILLIN SOD/SULBACTAM 3GM 100 ML ONE ×2 (01:30→05:54)
[2020-11-01] MEDS: MORPHINE SULFATE INJ 4 MG/ML INJ 1ML IV PRN ×2 (04:18→20:55)
[2020-11-01] MEDS: SODIUM CHLORIDE 0.9% IV SCH ×4 (06:38→10:24)
[2020-11-01] MEDS: SULBACTAM IV SCH ×3 (06:38)
[2020-11-01] MEDS: AMPICILLIN SOD IV SCH ×3 (06:38)
[2020-11-01 07:02] LABS: BASOPHILS % 0.2 % (0.0-1.0); EOSINOPHILS % 0.1 % (0.0-6.0); HEMATOCRIT 37.3 % (34.2-44.1); HEMOGLOBIN 12.2 g/dL (12.0-16.0); LYMPHOCYTES # (AUTO) 0.7 (1.0-3.2); LYMPHOCYTES % 7.9 % (18.0-39.1); MEAN CORPUSCULAR HEMOGLOBIN 30.6 pg (28-32); MEAN CORPUSCULAR HGB CONC 32.7 g/dL (31-35); MEAN CORPUSCULAR VOLUME 93.5 fL (81-99); MONOCYTES # (AUTO) 0.6 (0.2-0.8); MONOCYTES % 7.2 % (4.4-11.3); NEUTROPHILS # (AUTO) 7.1 (2.1-6.9); NEUTROPHILS % 84.1 % (38.7-80.0); PLATELET COUNT 342 x10e3/uL (140-360); RED BLOOD COUNT 3.99 x10e6/uL (3.6-5.1); RED CELL DISTRIBUTION WIDTH 16.6 % (11.7-14.4)
[2020-11-01 07:22] LABS: ANION GAP 13.3 mmol/L (8-16); BLOOD UREA NITROGEN 10 mg/dL (7-26); BUN/CREATININE RATIO 18 (6-25); CALCIUM 7.1 mg/dL (8.4-10.2); CARBON DIOXIDE 24 mmol/L (22-29); CHLORIDE 105 mmol/L (98-107); CREATININE, SERUM 0.56 mg/dL (0.57-1.11); EST GLOMERULAR FILTRATION RATE > 60 ML/MIN (60-); GLUCOSE 104 mg/dL (74-118); POTASSIUM 3.3 mmol/L (3.5-5.1); SODIUM 139 mmol/L (136-145)
[2020-11-01] MEDS ORDERED: POTASSIUM CHLORIDE 20 MEQ TAB CR PO ONE (08:54)
[2020-11-01] MEDS ORDERED: ACETAMINOPHEN 325 MG TAB PO PRN (09:00)
[2020-11-01] MEDS ORDERED: FAMOTIDINE 20 MG/2 ML VIAL IV SCH (09:00)
[2020-11-01] MEDS ORDERED: ATORVASTATIN 20 MG TAB PO SCH (09:00)
[2020-11-01] MEDS ORDERED: NON-FORMULARY MEDICATION ([Trulicity] 1.5 MG) SQ SCH (09:00)
[2020-11-01] MEDS ORDERED: CEFTRIAXONE SOD 2 GM/100 ML ML IV SCH (09:15)
[2020-11-01] MEDS: SUCRALFATE 1 GM TAB PO SCH ×3 (09:25→20:55)
[2020-11-01] MEDS: PAROXETINE HCL 20 MG TAB PO SCH (09:25)
[2020-11-01] MEDS: ATORVASTATIN 40 MG TAB PO SCH (09:25)
[2020-11-01] MEDS: NEBIVOLOL 10 MG TAB PO SCH (09:25)
[2020-11-01] MEDS: DICYCLOMINE HCL 20 MG TAB PO SCH ×3 (09:27→20:55)
[2020-11-01] MEDS: CEFTRIAXONE SOD IV SCH (10:24)
[2020-11-01 15:29] LABS: ANION GAP 12.6 mmol/L (8-16); BLOOD UREA NITROGEN 6 mg/dL (7-26); BUN/CREATININE RATIO 11 (6-25); CALCIUM 7.2 mg/dL (8.4-10.2); CARBON DIOXIDE 23 mmol/L (22-29); CHLORIDE 107 mmol/L (98-107); CREATININE, SERUM 0.57 mg/dL (0.57-1.11); EST GLOMERULAR FILTRATION RATE > 60 ML/MIN (60-); GLUCOSE 95 mg/dL (74-118); POTASSIUM 3.6 mmol/L (3.5-5.1); SODIUM 139 mmol/L (136-145)
[2020-11-01] MEDS: NITROFURANTOIN MACROCRYSTALS 100 MG CAP PO SCH (16:06)
[2020-11-01] MEDS: ONDANSETRON HCL INJ 2MG/ML 2ML 2 MG/ML VIAL IV PRN (20:55)
[2020-11-02] VITALS (8 sets, daily range): BP systolic 104–129; BP diastolic 54–64
[2020-11-02] MEDS: SODIUM CHLORIDE 0.9% 1000ML 1,000 ML IV SCH ×3 (01:39→23:01)
[2020-11-02] MEDS ORDERED: PANTOPRAZOLE 40 MG 10ML VIAL IV STA (01:54)
[2020-11-02] MEDS: METRONIDAZOLE 500MG/NS 100ML IV SCH ×4 (05:32→23:15)
[2020-11-02] MEDS: DICYCLOMINE HCL 20 MG TAB PO SCH ×3 (07:19→21:16)
[2020-11-02] MEDS: NITROFURANTOIN MACROCRYSTALS 100 MG CAP PO SCH ×2 (08:16→18:40)
[2020-11-02] MEDS: NEBIVOLOL 10 MG TAB PO SCH (08:18)
[2020-11-02] MEDS: ATORVASTATIN 40 MG TAB PO SCH (08:18)
[2020-11-02] MEDS: PAROXETINE HCL 20 MG TAB PO SCH (08:18)
[2020-11-02] MEDS: SUCRALFATE 1 GM TAB PO SCH ×4 (08:18→21:16)
[2020-11-02] MEDS: CEFTRIAXONE SOD IV SCH (08:19)
[2020-11-02] MEDS: SODIUM CHLORIDE 0.9% IV SCH (08:19)
[2020-11-02] MEDS ORDERED: PANTOPRAZOLE 40 MG 10ML VIAL IV SCH (09:00)
[2020-11-02] MEDS: MORPHINE SULFATE INJ 4 MG/ML INJ 1ML IV PRN (23:01)
[2020-11-02] MEDS: ONDANSETRON HCL INJ 2MG/ML 2ML 2 MG/ML VIAL IV PRN (23:01)
[2020-11-03] VITALS (8 sets, daily range): BP systolic 96–123; BP diastolic 62–79
[2020-11-03] MEDS: METRONIDAZOLE 500MG/NS 100ML IV SCH ×4 (05:22→23:39)
[2020-11-03] MEDS: DICYCLOMINE HCL 20 MG TAB PO SCH ×4 (05:22→21:41)
[2020-11-03] MEDS: SODIUM CHLORIDE 0.9% 1000ML 1,000 ML IV SCH (09:30)
[2020-11-03] MEDS: SODIUM CHLORIDE 0.9% IV SCH (09:37)
[2020-11-03] MEDS: CEFTRIAXONE SOD IV SCH (09:37)
[2020-11-03] MEDS: MORPHINE SULFATE INJ 4 MG/ML INJ 1ML IV PRN (10:15)
[2020-11-03] MEDS: ONDANSETRON HCL INJ 2MG/ML 2ML 2 MG/ML VIAL IV PRN (10:15)
[2020-11-03] MEDS: SUCRALFATE 1 GM TAB PO SCH ×4 (10:20→21:39)
[2020-11-03] MEDS: NEBIVOLOL 10 MG TAB PO SCH (10:20)
[2020-11-03] MEDS: ATORVASTATIN 40 MG TAB PO SCH (10:20)
[2020-11-03] MEDS: PAROXETINE HCL 20 MG TAB PO SCH (10:20)
[2020-11-04] VITALS (8 sets, daily range): BP systolic 117–133; BP diastolic 64–73
[2020-11-04] MEDS: SODIUM CHLORIDE 0.9% 1000ML 1,000 ML IV SCH ×2 (03:02→15:12)
[2020-11-04] MEDS: METRONIDAZOLE 500MG/NS 100ML IV SCH ×4 (05:58→23:52)
[2020-11-04] MEDS: DICYCLOMINE HCL 20 MG TAB PO SCH ×3 (05:59→21:31)
[2020-11-04] MEDS: NEBIVOLOL 10 MG TAB PO SCH (08:26)
[2020-11-04] MEDS: ATORVASTATIN 40 MG TAB PO SCH (08:26)
[2020-11-04] MEDS: SUCRALFATE 1 GM TAB PO SCH ×4 (08:26→21:31)
[2020-11-04] MEDS: PAROXETINE HCL 20 MG TAB PO SCH (08:26)
[2020-11-04] MEDS: PANTOPRAZOLE SOD 40 MG TABEC PO SCH (08:26)
[2020-11-04] MEDS: CEFTRIAXONE SOD IV SCH (09:04)
[2020-11-04] MEDS: SODIUM CHLORIDE 0.9% IV SCH (09:04)
[2020-11-04] MEDS ORDERED: ONDANSETRON HCL 4 MG ORAL DISINTEGRATING TAB PO PRN (13:45)
[2020-11-04] MEDS: MORPHINE SULFATE INJ 4 MG/ML INJ 1ML IV PRN (19:00)
[2020-11-05] VITALS (9 sets, daily range): BP systolic 115–144; BP diastolic 61–76
[2020-11-05] MEDS: DICYCLOMINE HCL 20 MG TAB PO SCH ×3 (05:07→20:53)
[2020-11-05] MEDS: SODIUM CHLORIDE 0.9% 1000ML 1,000 ML IV SCH ×3 (05:07→20:53)
[2020-11-05] MEDS: METRONIDAZOLE 500MG/NS 100ML IV SCH ×2 (05:07→13:08)
[2020-11-05] MEDS: PANTOPRAZOLE SOD 40 MG TABEC PO SCH (07:30)
[2020-11-05] MEDS: SUCRALFATE 1 GM TAB PO SCH ×4 (07:30→20:53)
[2020-11-05] MEDS: PAROXETINE HCL 20 MG TAB PO SCH (09:00)
[2020-11-05] MEDS: ATORVASTATIN 40 MG TAB PO SCH (09:00)
[2020-11-05] MEDS: SODIUM CHLORIDE 0.9% IV SCH (09:46)
[2020-11-05] MEDS: CEFTRIAXONE SOD IV SCH (09:46)
[2020-11-05] MEDS: NEBIVOLOL 10 MG TAB PO SCH (09:47)
[2020-11-05] MEDS: MORPHINE SULFATE INJ 4 MG/ML INJ 1ML IV PRN (09:53)
[2020-11-05] MEDS ORDERED: PROPOFOL IV EMULSION 10 MG/ML 20 ML VIAL ONE (14:07)
[2020-11-05] MEDS ORDERED: DEXAMETHASONE SOD PHOS INJ 4 MG/ML VIAL ONE (14:07)
[2020-11-05] MEDS ORDERED: LIDOCAINE HCL 2% LOCAL INJ 5 ML SDV VIAL INJ ONE (14:07)
[2020-11-05] MEDS ORDERED: ROCURONIUM BROMIDE 10 MG/ML 5ML VIAL IV ONE (14:07)
[2020-11-05] MEDS ORDERED: SEVOFLURANE INHAL SOLN 250 ML PEN BTL ONE (14:07)
[2020-11-05] MEDS ORDERED: ONDANSETRON HCL INJ 2MG/ML 2ML 2 MG/ML VIAL ONE (14:07)
[2020-11-05] MEDS ORDERED: BUPIVACAINE 0.25% 30ML SDV ONE (14:49)
[2020-11-05] MEDS ORDERED: HYDROCODONE/APAP 7.5MG-325MG 1 EA TAB PO PRN (15:30)
[2020-11-05] MEDS ORDERED: SUGAMMADEX SODIUM 200 MG/2 ML VIAL IV ONE (15:35)
[2020-11-05] MEDS: HYDROMORPHONE 1MG/1ML INJ IV PRN ×2 (16:46→23:29)
[2020-11-05] MEDS ORDERED: MIDAZOLAM HCL 2 MG/2 ML VIAL ONE (19:12)
[2020-11-05] MEDS ORDERED: FENTANYL CITRATE/PF 100MCG/2 ML INJ ONE (19:12)
[2020-11-06] VITALS (7 sets, daily range): BP systolic 108–133; BP diastolic 56–71
[2020-11-06] MEDS: DICYCLOMINE HCL 20 MG TAB PO SCH ×3 (05:44→22:48)
[2020-11-06 06:45] LABS: BASOPHILS % 0.1 % (0.0-1.0); HEMATOCRIT 38.2 % (34.2-44.1); HEMOGLOBIN 12.6 g/dL (12.0-16.0); LYMPHOCYTES # (AUTO) 2.4 (1.0-3.2); LYMPHOCYTES % 17.9 % (18.0-39.1); MEAN CORPUSCULAR HEMOGLOBIN 30.9 pg (28-32); MEAN CORPUSCULAR VOLUME 93.6 fL (81-99); MONOCYTES # (AUTO) 0.9 (0.2-0.8); NEUTROPHILS # (AUTO) 10.1 (2.1-6.9); NEUTROPHILS % 74.4 % (38.7-80.0); PLATELET COUNT 393 x10e3/uL (140-360); RED BLOOD COUNT 4.08 x10e6/uL (3.6-5.1); RED CELL DISTRIBUTION WIDTH 15.8 % (11.7-14.4)
[2020-11-06 07:08] LABS: ALANINE AMINOTRANSFERASE 52 IU/L (0-55); ALBUMIN 2.9 g/dL (3.5-5.0); ALKALINE PHOSPHATASE 69 IU/L (40-150); ANION GAP 12.4 mmol/L (8-16); BLOOD UREA NITROGEN 5 mg/dL (7-26); BUN/CREATININE RATIO 9 (6-25); CALCIUM 7.7 mg/dL (8.4-10.2); CARBON DIOXIDE 21 mmol/L (22-29); CHLORIDE 107 mmol/L (98-107); CREATININE, SERUM 0.56 mg/dL (0.57-1.11); EST GLOMERULAR FILTRATION RATE > 60 ML/MIN (60-); GLUCOSE 120 mg/dL (74-118); POTASSIUM 3.4 mmol/L (3.5-5.1); SODIUM 137 mmol/L (136-145)
[2020-11-06] MEDS ORDERED: POTASSIUM CHLORIDE 20 MEQ TAB CR PO STA (08:16)
[2020-11-06] MEDS: SUCRALFATE 1 GM TAB PO SCH ×4 (08:37→22:48)
[2020-11-06] MEDS: PANTOPRAZOLE SOD 40 MG TABEC PO SCH (08:37)
[2020-11-06] MEDS: SODIUM CHLORIDE 0.9% IV SCH (08:38)
[2020-11-06] MEDS: PAROXETINE HCL 20 MG TAB PO SCH (08:38)
[2020-11-06] MEDS: CEFTRIAXONE SOD IV SCH (08:38)
[2020-11-06] MEDS: ATORVASTATIN 40 MG TAB PO SCH (08:38)
[2020-11-06] MEDS: HYDROMORPHONE 1MG/1ML INJ IV PRN ×2 (08:58→12:49)
[2020-11-06] MEDS: NEBIVOLOL 10 MG TAB PO SCH (09:10)
[2020-11-06] MEDS: SODIUM CHLORIDE 0.9% 1000ML 1,000 ML IV SCH ×2 (12:49→22:48)
[2020-11-07] VITALS: BP 109/46
[2020-11-07 04:00] VITALS: BP 111/60
[2020-11-07] MEDS: DICYCLOMINE HCL 20 MG TAB PO SCH (05:41)
[2020-11-07] MEDS: PANTOPRAZOLE SOD 40 MG TABEC PO SCH (07:30)
[2020-11-07 07:56] VITALS: BP 117/60
[2020-11-07] MEDS: NEBIVOLOL 10 MG TAB PO SCH (09:00)
[2020-11-07] MEDS ORDERED: METRONIDAZOLE 500 MG TAB PO SCH (09:00)
[2020-11-07] MEDS ORDERED: CIPROFLOXACIN 500 MG TAB PO SCH (09:00)
[2020-11-07 09:26] VITALS: BP 117/60
[2020-11-07] MEDS: SUCRALFATE 1 GM TAB PO SCH (10:40)
[2020-11-07] MEDS: ATORVASTATIN 40 MG TAB PO SCH (10:41)
[2020-11-07] MEDS: PAROXETINE HCL 20 MG TAB PO SCH (10:41)
[2020-11-07] MEDS ORDERED: POTASSIUM CHLORIDE 20 MEQ TAB CR PO ONE (11:00)
[2020-11-07 11:11] LABS: BASOPHILS # (AUTO) 0.1 (0.0-0.1); BASOPHILS % 0.5 % (0.0-1.0); EOSINOPHILS % 0.2 % (0.0-6.0); HEMATOCRIT 39.9 % (34.2-44.1); HEMOGLOBIN 12.8 g/dL (12.0-16.0); LYMPHOCYTES # (AUTO) 4.4 (1.0-3.2); LYMPHOCYTES % 34.9 % (18.0-39.1); MEAN CORPUSCULAR HEMOGLOBIN 30.7 pg (28-32); MEAN CORPUSCULAR HGB CONC 32.1 g/dL (31-35); MEAN CORPUSCULAR VOLUME 95.7 fL (81-99); MONOCYTES # (AUTO) 1.3 (0.2-0.8); MONOCYTES % 10.1 % (4.4-11.3); NEUTROPHILS # (AUTO) 6.7 (2.1-6.9); NEUTROPHILS % 52.9 % (38.7-80.0); PLATELET COUNT 424 x10e3/uL (140-360); RED BLOOD COUNT 4.17 x10e6/uL (3.6-5.1); RED CELL DISTRIBUTION WIDTH 16.4 % (11.7-14.4)
== END 2020-11-07 12:00 | disposition home or self-care (01) | DRG 418 ==
LOC: FSED 18:15 → ERHOLD 19:23 → MED/SURG3 22:05 → OBSVTOIN 11-01 12:49
PROVIDERS: ADMIT Internal Medicine; ATTEND Internal Medicine
PROC: 0FT44ZZ Resection of Gallbladder, Percutaneous Endoscopic Approach (ICD-10-PCS; principal; 2020-11-05 14:22)
DX: K81.0 Acute cholecystitis (principal); A08.39 Other viral enteritis; K82.8 Other specified diseases of gallbladder; E11.9 Type 2 diabetes mellitus without complications; E87.6 Hypokalemia; R11.10 Vomiting, unspecified; I10 Essential (primary) hypertension; J45.909 Unspecified asthma, uncomplicated; K21.9 Gastro-esophageal reflux disease without esophagitis; F41.9 Anxiety disorder, unspecified; E78.5 Hyperlipidemia, unspecified
CPT/HCPCS: 36415; 74177; 76705; 78227; 80048; 80053; 80076; 81003; 82948; 83518; 83605; 83630; 83735; 85025; 87040; 87045; 87086; 87493; 88304; 96361; 96374; 96375; 96376; 99284; A9537; C1766; G0378; J0295; J0696; J1100; J1170; J2001; J2250; J2270; J2405; J3010; J7030; Q0162; Q9967; U0002

== ENCOUNTER 2021-06-29 13:21 | Emergency (ER) | payer BC, MEDICARE ==
[~2021-06-29] VITALS: Ht 157.5 cm; Wt 68.1 kg
[2021-06-29] MEDS ORDERED: CEFTRIAXONE 1 GM VIAL IV ONE (13:45)
[2021-06-29] MEDS ORDERED: CEFTRIAXONE 1 GM in SODIUM CHLORIDE 0.9% 50ML 50 ML IV ONE (14:00)
[2021-06-29] MEDS ORDERED: ACETAMINOPHEN500 MG PO (14:11)
[2021-06-29] MEDS ORDERED: CEFDINIR300 MG PO (14:11)
[2021-06-29] MEDS ORDERED: CEFTRIAXONE 1 GM VIAL ONE (14:12)
[2021-06-29] MEDS ORDERED: SODIUM CHLORIDE 0.9% 100 ML ONE (14:12)
== END 2021-06-29 14:56 | disposition home or self-care (01) ==
LOC: FSED 13:30
DX: N93.9 Abnormal uterine and vaginal bleeding, unspecified (principal); N30.90 Cystitis, unspecified without hematuria; I10 Essential (primary) hypertension; E11.9 Type 2 diabetes mellitus without complications; E78.5 Hyperlipidemia, unspecified
CPT/HCPCS: 80053; 81003; 85025; 99283; J0696; J7050

== ENCOUNTER 2021-06-30 17:32 | Emergency (ER) | payer BC, MEDICARE ==
[~2021-06-30] VITALS: Ht 157.5 cm; Wt 68.0 kg
[~2021-06-30 17:32] MED LIST changes: +ACETAMINOPHEN500 MG PO; +CEFDINIR300 MG PO
== END 2021-06-30 18:19 | disposition home or self-care (01) ==
LOC: ER 18:10
DX: N95.0 Postmenopausal bleeding (principal); I10 Essential (primary) hypertension; E11.9 Type 2 diabetes mellitus without complications; E78.5 Hyperlipidemia, unspecified
CPT/HCPCS: 99283

== ENCOUNTER 2021-07-26 08:28 | Emergency (ER) | payer BC, MEDICARE ==
[~2021-07-26] VITALS: Ht 152.4 cm; Wt 68.0 kg
[2021-07-26] MEDS ORDERED: ONDANSETRON HCL INJ 2MG/ML 2ML 2 MG/ML VIAL ONE (09:18)
[2021-07-26] MEDS ORDERED: SODIUM CHLORIDE 0.9% 1000ML 1,000 ML ONE (09:18)
[2021-07-26] MEDS ORDERED: KETOROLAC TROMETHAMINE 30 MG/ML VIAL ONE (09:18)
[2021-07-26] MEDS ORDERED: KETOROLAC TROMETHAMINE 30 MG/ML VIAL IV STA (09:24)
[2021-07-26] MEDS ORDERED: ONDANSETRON HCL INJ 2MG/ML 2ML 2 MG/ML VIAL IV STA (09:24)
[2021-07-26] MEDS ORDERED: SODIUM CHLORIDE 0.9% 1000ML 1,000 ML IV STA (09:24)
[2021-07-26] MEDS ORDERED: SODIUM CHLORIDE 0.9% 50ML 50 ML ONE (10:15)
[2021-07-26] MEDS ORDERED: IOPAMIDOL 370 MG/ML 200 ML INFUS..BTL INJ ONE (10:16)
[2021-07-26 11:18] VITALS: BP 133/66
== END 2021-07-26 11:36 | disposition home or self-care (01) ==
LOC: FSED 08:50
DX: R10.32 Left lower quadrant pain (principal); K29.70 Gastritis, unspecified, without bleeding; R11.2 Nausea with vomiting, unspecified; E11.65 Type 2 diabetes mellitus with hyperglycemia; K59.00 Constipation, unspecified; N95.0 Postmenopausal bleeding
CPT/HCPCS: 74177; 80048; 80076; 81003; 85025; 96374; 96376; 99284; J1885; J2405; J7030; Q9967

== ENCOUNTER 2021-09-26 06:30 | Observation (INO) | payer MEDICARE ==
[2021-09-25 12:31] LABS: BASOPHILS % 0.3 % (0.0-1.0); EOSINOPHILS % 0.4 % (0.0-6.0); HEMATOCRIT 38.2 % (34.2-44.1); HEMOGLOBIN 12.3 g/dL (12.0-16.0); LYMPHOCYTES # (AUTO) 3.3 (1.0-3.2); LYMPHOCYTES % 29.8 % (18.0-39.1); MEAN CORPUSCULAR HEMOGLOBIN 31.8 pg (28-32); MEAN CORPUSCULAR HGB CONC 32.2 g/dL (31-35); MEAN CORPUSCULAR VOLUME 98.7 fL (81-99); MONOCYTES # (AUTO) 0.8 (0.2-0.8); MONOCYTES % 7.6 % (4.4-11.3); NEUTROPHILS # (AUTO) 6.8 (2.1-6.9); NEUTROPHILS % 61.6 % (38.7-80.0); PLATELET COUNT 347 x10e3/uL (140-360); RED BLOOD COUNT 3.87 x10e6/uL (3.6-5.1); RED CELL DISTRIBUTION WIDTH 14.5 % (11.7-14.4)
[2021-09-25 12:53] LABS: ALBUMIN 3.7 g/dL (3.5-5.0); CALCIUM 8.4 mg/dL (8.4-10.2); CREATININE, SERUM 0.61 mg/dL (0.57-1.11)
[2021-09-25 12:54] LABS: ALBUMIN/GLOBULIN RATIO 1.2 (0.8-2.0)
[~2021-09-26] VITALS: Ht 152.4 cm; Wt 67.6 kg
[2021-09-26] MEDS ORDERED: SODIUM CHLORIDE 0.9% 50ML 100 ML ONE (06:50)
[2021-09-26] MEDS ORDERED: DIPHENHYDRAMINE HCL 25 MG CAP PO PRN (08:00)
[2021-09-26] MEDS ORDERED: BISACODYL 5 MG TAB EC PO PRN (08:00)
[2021-09-26] MEDS ORDERED: ONDANSETRON HCL INJ 2MG/ML 2ML 2 MG/ML VIAL IV PRN (08:00)
[2021-09-26] MEDS ORDERED: ZOLPIDEM TARTRATE 5 MG TAB PO PRN (08:00)
[2021-09-26] MEDS ORDERED: LIDOCAINE 1% W/EPINEPHRINE 20 ML VIAL ONE (08:58)
[2021-09-26] MEDS ORDERED: ESTROGENS CONJUGATED VAGINAL CR 45 GM TUBE PV ONE (08:58)
[2021-09-26] MEDS ORDERED: ACETAMINOPHEN 1000 MG/100 ML 100 ML IV ONE (10:00)
[2021-09-26] MEDS ORDERED: SUGAMMADEX SODIUM 200 MG/2 ML VIAL IV ONE (10:25)
[2021-09-26] MEDS ORDERED: FENTANYL CITRATE/PF 100MCG/2 ML INJ ONE ×2 (11:05→17:51)
[2021-09-26 11:49] VITALS: BP 114/77
[2021-09-26 12:02] VITALS: BP 114/77
[2021-09-26 12:16] VITALS: BP 114/77
[2021-09-26] MEDS: HYDROCODONE/APAP 10MG-325MG TAB PO PRN ×2 (12:52→16:56)
[2021-09-26] MEDS: KETOROLAC TROMETHAMINE 30 MG/ML VIAL IM PRN ×2 (12:52→17:42)
[2021-09-26 16:00] VITALS: BP 107/58
[2021-09-26] MEDS ORDERED: MIDAZOLAM HCL 2 MG/2 ML VIAL ONE (17:51)
[2021-09-26] MEDS ORDERED: LIDOCAINE HCL 2% LOCAL INJ 5 ML SDV VIAL INJ ONE (19:14)
[2021-09-26] MEDS ORDERED: DEXAMETHASONE SOD PHOS INJ 4 MG/ML SDV ONE (19:14)
[2021-09-26] MEDS ORDERED: PROPOFOL IV EMULSION 10 MG/ML 20 ML VIAL ONE (19:14)
[2021-09-26] MEDS ORDERED: ROCURONIUM BROMIDE 10 MG/ML 5ML VIAL IV ONE (19:14)
[2021-09-26] MEDS ORDERED: ONDANSETRON HCL INJ 2MG/ML 2ML 2 MG/ML VIAL ONE (19:14)
[2021-09-26] MEDS ORDERED: EPHEDRINE SULFATE INJ 50 MG/ML VIAL ONE (19:14)
[2021-09-26] MEDS ORDERED: SEVOFLURANE INHAL SOLN 250 ML PEN BTL ONE (19:14)
[2021-09-26] MEDS ORDERED: POVIDONE IODINE 0.05% 0.05 % ML PO ONE (19:14)
[2021-09-26 19:41] VITALS: BP 107/58
[2021-09-26 19:42] VITALS: BP 107/58
[2021-09-27 00:28] VITALS: BP 97/59
[2021-09-27] MEDS: KETOROLAC TROMETHAMINE 30 MG/ML VIAL IM PRN ×2 (03:01→12:32)
[2021-09-27 05:53] VITALS: BP 107/57
[2021-09-27 06:22] LABS: BASOPHILS % 0.2 % (0.0-1.0); HEMATOCRIT 33.5 % (34.2-44.1); LYMPHOCYTES # (AUTO) 2.2 (1.0-3.2); LYMPHOCYTES % 17.3 % (18.0-39.1); MEAN CORPUSCULAR HEMOGLOBIN 32.4 pg (28-32); MEAN CORPUSCULAR HGB CONC 32.8 g/dL (31-35); MEAN CORPUSCULAR VOLUME 98.8 fL (81-99); MONOCYTES % 7.9 % (4.4-11.3); NEUTROPHILS # (AUTO) 9.6 (2.1-6.9); PLATELET COUNT 279 x10e3/uL (140-360); RED BLOOD COUNT 3.39 x10e6/uL (3.6-5.1); RED CELL DISTRIBUTION WIDTH 14.5 % (11.7-14.4)
[2021-09-27 08:00] VITALS: BP 107/57
[2021-09-27 08:20] VITALS: BP 113/64
[2021-09-27 11:40] VITALS: BP 106/68
[2021-09-27] MEDS: HYDROCODONE/APAP 10MG-325MG TAB PO PRN (14:55)
[2021-09-27] MEDS ORDERED: ACETAMINOPHEN-1 EAC4 PO (15:09)
[2021-09-27] MEDS ORDERED: IBUPROFEN600 MG PO (15:12)
== END 2021-09-27 16:40 | disposition home or self-care (01) ==
LOC: OR 06:30 → PACU V 11:37 → MED/SURG3 11:50
PROVIDERS: ADMIT Obstetrics & Gynecology; ATTEND Obstetrics & Gynecology
DX: N81.4 Uterovaginal prolapse, unspecified (principal); Z20.822 Contact with and (suspected) exposure to COVID-19; Z01.818 Encounter for other preprocedural examination; I10 Essential (primary) hypertension; E78.5 Hyperlipidemia, unspecified; E11.9 Type 2 diabetes mellitus without complications; Z99.3 Dependence on wheelchair; Z79.899 Other long term (current) drug therapy; R32 Unspecified urinary incontinence; E78.00 Pure hypercholesterolemia, unspecified; F32.A Depression, unspecified
CPT/HCPCS: 36415 ×3; 57265; 57282; 58262; 71046; 80053; 82948; 85025 ×2; 86850; 86900; 88305; 88307; 93005; 96365; G0378 ×2; J0131; J0690; J1100; J1885 ×2; J2001; J2250; J2405; J2704; J3010; U0002; 88304

== ENCOUNTER → 2022-11-02 | Day surgery (SDC) | payer BC, MEDICARE ==
[2022-10-26 14:33] LABS: BASOPHILS # (AUTO) 0.1 (0.0-0.1); BASOPHILS % 0.7 % (0.0-1.0); EOSINOPHILS # (AUTO) 0.1 (0.0-0.4); EOSINOPHILS % 1.2 % (0.0-6.0); HEMATOCRIT 36.9 % (34.2-44.1); HEMOGLOBIN 12.1 g/dL (12.0-16.0); LYMPHOCYTES # (AUTO) 3.5 (1.0-3.2); MEAN CORPUSCULAR HEMOGLOBIN 31.1 pg (28-32); MEAN CORPUSCULAR HGB CONC 32.8 g/dL (31-35); MEAN CORPUSCULAR VOLUME 94.9 fL (81-99); MONOCYTES # (AUTO) 0.7 (0.2-0.8); MONOCYTES % 9.6 % (4.4-11.3); NEUTROPHILS # (AUTO) 3.1 (2.1-6.9); NEUTROPHILS % 41.2 % (38.7-80.0); PLATELET COUNT 326 x10e3/uL (140-360); RED BLOOD COUNT 3.89 x10e6/uL (3.6-5.1); RED CELL DISTRIBUTION WIDTH 13.5 % (11.7-14.4)
[~2022-11-02] MED LIST changes: +ACETAMINOPHEN-1 EAC4 PO; +FENTANYL CITRATE/PF 100MCG/2 ML INJ ONE; +HYOSCYAMINE SULFATE 0.5 MG/ML INJ ONE; +IBUPROFEN600 MG PO; +LACTATED RINGER'S 1,000 ML ONE; +LIDOCAINE HCL 2% LOCAL INJ 5 ML SDV VIAL INJ ONE; +MIDAZOLAM HCL 2 MG/2 ML VIAL ONE; +PROPOFOL IV EMULSION 10 MG/ML 20 ML VIAL ONE; +PROPOFOL IV EMULSION 10 MG/ML 50 ML VIAL IV ONE
[2022-11-02 12:08] VITALS: TEMP 97.2
[2022-11-02 12:20] VITALS: BP 148/98; PULSE 98; RESP 16; O2SAT 97
== END | disposition home or self-care (01) ==
LOC: OR 08:03
PROVIDERS: ATTEND Internal Medicine Gastroenterology
DX: R13.19 Other dysphagia (principal); K63.5 Polyp of colon; K29.60 Other gastritis without bleeding; K29.50 Unspecified chronic gastritis without bleeding; K44.9 Diaphragmatic hernia without obstruction or gangrene; K57.30 Diverticulosis of large intestine without perforation or abscess without bleeding; K64.8 Other hemorrhoids; Z71.3 Dietary counseling and surveillance; Z90.49 Acquired absence of other specified parts of digestive tract; I10 Essential (primary) hypertension; E78.00 Pure hypercholesterolemia, unspecified; Z88.6 Allergy status to analgesic agent; Z01.810 Encounter for preprocedural cardiovascular examination; Z01.812 Encounter for preprocedural laboratory examination; Z79.85 Long-term (current) use of injectable non-insulin antidiabetic drugs; Z79.899 Other long term (current) drug therapy; Z80.0 Family history of malignant neoplasm of digestive organs
CPT/HCPCS: 36415; 43239; 43450; 45380; 85025; 88305; 88342; 93005; C9113; J1980; J2001; J2250; J2704 ×2; J3010; J7121; 45378; 88304; 88312

== ENCOUNTER 2022-12-24 17:11 | Emergency (ER) | payer BC, MEDICARE ==
[~2022-12-24] VITALS: Ht 152.4 cm; Wt 68.0 kg
[~2022-12-24 17:11] MED LIST changes: -FENTANYL CITRATE/PF 100MCG/2 ML INJ ONE; -HYOSCYAMINE SULFATE 0.5 MG/ML INJ ONE; -LACTATED RINGER'S 1,000 ML ONE; -LIDOCAINE HCL 2% LOCAL INJ 5 ML SDV VIAL INJ ONE; -MIDAZOLAM HCL 2 MG/2 ML VIAL ONE; -PROPOFOL IV EMULSION 10 MG/ML 20 ML VIAL ONE; -PROPOFOL IV EMULSION 10 MG/ML 50 ML VIAL IV ONE
[2022-12-24 17:27] VITALS: O2SAT 95
[2022-12-24] MEDS ORDERED: ACETAMINOPHEN 325 MG TAB PO ONE (18:00)
[2022-12-24] MEDS ORDERED: SODIUM CHLORIDE 0.9% 1000ML 1,000 ML IV SCH (18:00)
[2022-12-24] MEDS ORDERED: SODIUM CHLORIDE 0.9% 1000ML 1,000 ML ONE (18:11)
[2022-12-24] MEDS ORDERED: ACETAMINOPHEN 325 MG TAB ONE (18:11)
== END 2022-12-24 19:34 | disposition home or self-care (01) ==
LOC: FSED 17:18
DX: B34.9 Viral infection, unspecified (principal); M25.50 Pain in unspecified joint; M79.10 Myalgia, unspecified site; E11.9 Type 2 diabetes mellitus without complications; I10 Essential (primary) hypertension; K21.9 Gastro-esophageal reflux disease without esophagitis
CPT/HCPCS: 71046; 81003; 83518; 87400; 99283; J7030; U0002

== ENCOUNTER 2024-01-13 11:34 | Emergency (ER) | payer BC, OTHER ==
[~2024-01-13] VITALS: Ht 152.4 cm; Wt 68.6 kg
[2024-01-13] MEDS ORDERED: MOUNJARO5 MG/0.5 M (11:54)
[2024-01-13] MEDS ORDERED: DOXYCYCLINE HY100 MG PO (12:47)
[2024-01-13] MEDS ORDERED: HYDROXYZINE HCL25 MG PO (12:48)
[2024-01-13] MEDS: DEXAMETHASONE SOD PHOS INJ 4 MG/ML SDV IM ONE (12:51)
[2024-01-13] MEDS ORDERED: TRIAMCINOLONE A15 G1 TOP (12:52)
[2024-01-13] MEDS: FAMOTIDINE 20 MG TAB PO ONE (13:07)
[2024-01-13 13:10] VITALS: PULSE 94; RESP 16; TEMP 98.5; O2SAT 97
== END 2024-01-13 13:10 | disposition home or self-care (01) ==
LOC: FSED 11:39
DX: L30.9 Dermatitis, unspecified (principal); E11.9 Type 2 diabetes mellitus without complications; I10 Essential (primary) hypertension; E78.5 Hyperlipidemia, unspecified; K21.9 Gastro-esophageal reflux disease without esophagitis; J45.909 Unspecified asthma, uncomplicated; F41.9 Anxiety disorder, unspecified
CPT/HCPCS: 96372; 99283; J1100

== ENCOUNTER 2024-01-20 13:50 | Emergency (ER) | payer BC, MEDICARE ==
[~2024-01-20] VITALS: Ht 157.5 cm; Wt 68.5 kg
[~2024-01-20 13:50] MED LIST changes: +DOXYCYCLINE HY100 MG PO; +HYDROXYZINE HCL25 MG PO; +MOUNJARO5 MG/0.5 M; +TRIAMCINOLONE A15 G1 TOP
[2024-01-20 15:20] VITALS: PULSE 88; RESP 18; TEMP 98.2; O2SAT 98
[2024-01-20] MEDS ORDERED: AMOXICILLIN500 MG PO (16:33)
[2024-01-20] MEDS ORDERED: CORICIDIN COLD1 EACH PO (16:33)
== END 2024-01-20 16:47 | disposition home or self-care (01) ==
LOC: FSED 15:18
DX: R05.9 Cough, unspecified (principal); B34.9 Viral infection, unspecified; I10 Essential (primary) hypertension; E11.9 Type 2 diabetes mellitus without complications; E78.5 Hyperlipidemia, unspecified; K21.9 Gastro-esophageal reflux disease without esophagitis; F41.9 Anxiety disorder, unspecified; J45.909 Unspecified asthma, uncomplicated
CPT/HCPCS: 99282

== ENCOUNTER → 2024-02-25 | Outpatient (REF) | payer MEDICARE ==
[~2024-02-25] MED LIST changes: +AMOXICILLIN500 MG PO; +CORICIDIN COLD1 EACH PO; +IOPAMIDOL 370 MG/ML 100 ML INFUS..BTL INJ ONE
[2024-02-25 15:41] LABS: CREATININE, SERUM 0.8 mg/dL (0.57-1.11)
== END ==
LOC: CT 14:53
PROVIDERS: ATTEND Nurse Practitioner
DX: R10.10 Upper abdominal pain, unspecified (principal); K29.70 Gastritis, unspecified, without bleeding; K44.9 Diaphragmatic hernia without obstruction or gangrene; I10 Essential (primary) hypertension; R12 Heartburn; Z68.27 Body mass index [BMI] 27.0-27.9, adult
CPT/HCPCS: 36415; 74177; 82565; 84520; Q9967

== ENCOUNTER 2024-08-10 16:20 | Emergency (ER) | payer BC, MEDICARE ==
[~2024-08-10] VITALS: Ht 152.4 cm; Wt 69.2 kg
[~2024-08-10 16:20] MED LIST changes: -IOPAMIDOL 370 MG/ML 100 ML INFUS..BTL INJ ONE
[2024-08-10] MEDS ORDERED: LOSARTAN POTASS25 MG PO (16:30)
[2024-08-10] MEDS ORDERED: ATORVASTATIN CA20 MG PO (16:30)
[2024-08-10] MEDS ORDERED: MOUNJARO2.5 MG/0.5 (16:30)
[2024-08-10] MEDS: ACETAMINOPHEN 325 MG TAB PO ONE (17:02)
[2024-08-10] MEDS: KETOROLAC TROMETHAMINE 30 MG/ML VIAL IV ONE (17:02)
[2024-08-10] MEDS ORDERED: GABAPENTIN300 MG PO (17:16)
[2024-08-10] MEDS ORDERED: DEXAMETHASONE SOD PHOS INJ 4 MG/ML SDV ONE (17:16)
[2024-08-10] MEDS ORDERED: IBUPROFEN600 MG PO (17:16)
[2024-08-10 17:21] VITALS: PULSE 76; RESP 18; TEMP 97; O2SAT 96
[2024-08-10] MEDS ORDERED: DEXAMETHASONE SOD PHOS INJ 4 MG/ML SDV IV ONE (17:30)
== END 2024-08-10 17:27 | disposition home or self-care (01) ==
LOC: FSED 16:22
DX: M79.604 Pain in right leg (principal); M25.532 Pain in left wrist; M79.18 Myalgia, other site; I10 Essential (primary) hypertension; E11.9 Type 2 diabetes mellitus without complications; E78.5 Hyperlipidemia, unspecified; K21.9 Gastro-esophageal reflux disease without esophagitis; J45.909 Unspecified asthma, uncomplicated; F41.9 Anxiety disorder, unspecified
CPT/HCPCS: 73110; 80053; 81003; 85025; 85379; 96374; 99284; J1100; J1885

== ENCOUNTER 2024-09-01 00:20 | Emergency (ER) | payer BC, MEDICARE ==
[~2024-09-01] VITALS: Ht 154.9 cm; Wt 66.2 kg
[~2024-09-01 00:20] MED LIST changes: +ATORVASTATIN CA20 MG PO; +GABAPENTIN300 MG PO; +LOSARTAN POTASS25 MG PO; +MOUNJARO2.5 MG/0.5
[2024-09-01 00:38] VITALS: PULSE 111; RESP 18; TEMP 99
[2024-09-01 01:59] VITALS: BP 111/81; PULSE 109; RESP 18; TEMP 99; O2SAT 95
[2024-09-01] MEDS: KETOROLAC TROMETHAMINE 60 MG/2 ML VIAL IM ONE (02:02)
== END 2024-09-01 01:59 | disposition home or self-care (01) ==
LOC: FSED 00:51
DX: R05.9 Cough, unspecified (principal); U07.1 COVID-19; I10 Essential (primary) hypertension; E11.9 Type 2 diabetes mellitus without complications; E78.5 Hyperlipidemia, unspecified; K21.9 Gastro-esophageal reflux disease without esophagitis; J45.909 Unspecified asthma, uncomplicated; F41.9 Anxiety disorder, unspecified
CPT/HCPCS: 0223U; 83518; 87400; 87420; 96372; 99282; J1885

== ENCOUNTER 2025-04-13 21:23 | Emergency (ER) | payer BC, OTHER ==
[~2025-04-13] VITALS: Ht 152.4 cm; Wt 64.9 kg
[2025-04-13 22:02] VITALS: PULSE 82; RESP 20; TEMP 98.3
[2025-04-13] MEDS: DIPHTH,PERTUSS(ACELL),TET VAC 0.5 ML SYRINGE IM ONE (23:59)
[2025-04-14] MEDS ORDERED: HYDROCODONE/APAP 5MG-325MG TAB ONE (00:04)
[2025-04-14] MEDS: HYDROCODONE/APAP 5MG-325MG TAB PO ONE (00:05)
[2025-04-14 00:15] VITALS: BP 170/89; PULSE 80; RESP 18; TEMP 98; O2SAT 98
== END 2025-04-14 00:15 | disposition home or self-care (01) ==
LOC: FSED 22:19
DX: S42.291A Other displaced fracture of upper end of right humerus, initial encounter for closed fracture (principal); S01.511A Laceration without foreign body of lip, initial encounter; W17.89XA Other fall from one level to another, initial encounter; Y93.E9 Activity, other interior property and clothing maintenance; Y92.89 Other specified places as the place of occurrence of the external cause; I10 Essential (primary) hypertension; E11.9 Type 2 diabetes mellitus without complications; J45.909 Unspecified asthma, uncomplicated; E78.5 Hyperlipidemia, unspecified; K21.9 Gastro-esophageal reflux disease without esophagitis; F41.9 Anxiety disorder, unspecified
CPT/HCPCS: 71046; 96372; 99283